=== PATIENT | male | born 1975 | race Caucasian/White ===

== ENCOUNTER → 2018-05-04 07:34 | Outpatient (CLI) | payer OTHER, SELFPAY ==
--- NOTE | 2018-05-04 11:45 | PFT ---
INTRODUCTION: The patient is a 42-year-old male that presents for pulmonary function testing secondary to a diagnosis of cough. Respiratory therapy reports good patient effort. Bronchodilators were used during testing. INTERPRETATION: Forced expiration spirometry mistreats no evidence of a large airways obstructive ventilatory defect. There was no significant response to aerosolized bronchodilators. Spirograms are of poor quality and terminate prior to 6 seconds, likely underestimating FVC. Body plethysmography was performed which revealed an elevated TLC and RV of unclear significance. Diffusing capacity by single breath CO is within normal limits. IMPRESSION: Suboptimal pulmonary function testing. The patients short exhalation time, likely underestimated FVC. The increase in TLC and RV is of unclear significance.
== END ==
LOC: PSN 07:35
PROVIDERS: Family Provider Family Medicine; PCP Family Medicine; Referring Provider Internal Medicine Critical Care Medicine; Visit Provider Internal Medicine Critical Care Medicine
DX: R05 Cough (principal); Z86.19 Personal history of other infectious and parasitic diseases
CPT/HCPCS: 94060; 94726; 94729

== ENCOUNTER → 2018-05-18 15:24 | Outpatient (CLI) | payer OTHER, SELFPAY ==
--- NOTE | 2018-05-18 15:27 | CT_ITS ---
STUDY: CT CHEST WITHOUT CONTRAST REASON FOR EXAM: Male, 42 years old. Cough. History of pulmonary aspergillosis and right upper lobectomy. RADIATION DOSAGE (If Supplied By Facility): CTDIvol = ( 6.76 ) mGy, DLP = ( 259.12 ) mGycm TECHNIQUE: Transaxial imaging was performed without the administration of intravenous contrast material. Individualized dose optimization techniques were used for this CT. COMPARISON: None. FINDINGS: There is mild loss of volume with right upper lobe. There are small bullous changes in the upper lobes bilaterally. There is moderate stranding in the right upper lobe. There is mild stranding in the right lower lobe as well. No focal infiltrate is seen. There is mild central bronchiectasis. There is no demonstrated pleural abnormality. Normal heart and pericardium. Normal mediastinum. Normal hilar regions. Normal unenhanced pulmonary arteries. Normal aorta arch and descending thoracic aorta. There is no demonstrated acute osseous changes. The visualized portions of the upper abdomen demonstrate nonobstructing stone in the right kidney measuring about 6 mm. There is no evidence of hydronephrosis. CT/Chest without Contrast IMPRESSION: 1. Mild loss of volume of the right upper lobe. 2. Mild stranding in the right upper lobe probably due to scarring. 3. Mild bullous and cystic changes with mild bronchiectatic changes. 4. No focal infiltrate is seen. Electronically Signed: Gigi Schultz MD at 15:32 EST Tel , Service support ,
== END ==
LOC: CT 15:26
PROVIDERS: Family Provider Family Medicine; PCP Family Medicine; Referring Provider Internal Medicine Critical Care Medicine; Visit Provider Internal Medicine Critical Care Medicine
DX: R05 Cough (principal); Z86.19 Personal history of other infectious and parasitic diseases
CPT/HCPCS: 71250

== ENCOUNTER → 2018-06-04 08:27 | Outpatient (CLI) | payer OTHER, SELFPAY ==
[2018-06-04 10:02] LABS: Absolute Neutrophil Count 3.3 X10^3/uL (2.0-7.7); Basophil# 0.02 X10^3/uL; Basophil% 0.3 % (0-1); Eosinophils% 5.9 % (0-5); Hematocrit 43.6 % (40-54); Hemoglobin 14.6 g/dl (13.0-16.5); Lymphocyte % 35.3 % (19-41); Mean Corp Hgb Conc 33.5 g/gl (32-36); Mean Corpuscular Hgb 30.2 pg (27.0-32.0); Mean Corpuscular Volume 90.1 fL (80-94); Mean Platelet Vol. 10.8 fl (6.2-12.0); Monocyte# 0.66 X10^3/uL; Monocyte% 9.7 % (0-10); Neutrophil % 48.7 % (47-70); Platelet Count 275 K/mm3 (150-450); RBC Distribution Width CV 13.2 % (11.6-14.6); RBC Distribution Width SD 43.1 fl (35.1-43.9); Red Blood Count 4.84 M/mm3 (4.6-6.2); White Blood Count 6.8 K/mm3 (4.4-11.0)
[2018-06-04 10:03] LABS: POSITIVE COUNT NO; POSITIVE DIFFERENTIAL NO; POSITIVE MORPHOLOGY NO
[2018-06-04 10:24] LABS: BUN 20 mg/dL (7-18); Creatinine, Serum 0.92 mg/dL (0.70-1.30); Glucose 64 mg/dL (74-106)
[2018-06-04 10:25] LABS: ALB/GLOB Ratio 1.1 RATIO (0.9-2.4); AST(SGOT) 17 U/L (15-37); Alanine Aminotransfer ALT/SGPT 29 U/L (16-61); Alkaline Phosphatase 78 U/L (45-117); Anion Gap 6 (5-15); BUN/Creat Ratio 21.7 RATIO (10-20); Calcium,Total 8.8 mg/dL (8.5-10.1); Chloride 104 mmol/L (98-107); EST Glomerular Filtration Rate 95 mL/min (>60); Est Glom Filt Rate - Afr Amer 115 mL/min (>60); Globulin 3.7 g/dL (2.2-4.2); Potassium 3.9 mmol/L (3.5-5.1); Protein, Total 7.7 g/dL (6.4-8.2); Sodium Level 141 mmol/L (136-145)
--- OUTSIDE RECORDS SUMMARY | 2018-08-06 15:46 | XMS RPT_ITS ---
:1975 Author Organization [place] Support Name Relationship Address Phone PRISCILA AMAYA Unavailable [address] + [place] [address] E J SAMUEL Unavailable [address] + [place] [address] STRAITS, CEDRICK Unavailable Unavailable + PRISCILA AMAYA Unavailable [address] + [place] [address] E J SAMUEL Unavailable [address] + [place] [address] STRAITS, CEDRICK Unavailable . + [place] [address] VILMA AMAYAE Unavailable [address] + [place] [address] E J SAMUEL Unavailable [address] + [place] [address] STRAITS, CEDRICK Unavailable Unavailable + VILMA AMAYAE Unavailable [address] + [place] [address] E J SAMUEL Unavailable [address] + [place] [address] STRAITS, CEDRICK Unavailable Unavailable + VILMA AMAYAE Unavailable [address] + [place] [address] E J SAMUEL Unavailable [address] + [place] [address] STRAITS, CEDRICK Unavailable Unavailable + AMAYA, PRISCILA Unavailable [address] + [place] [address] E Earle BAKER Unavailable [address] + [place] [address] CEDRICK PAZ Unavailable Unavailable + AMAYA, PRISCILA Unavailable [address] + [place] [address] E Earle BATISTASAMUEL Unavailable [address] +. [place], [place] U NOT GIVEN Unavailable Unavailable Unavailable AMAYA, PRISCILA Unavailable [address] + [place], [place] [id number] AMAYA, PRISCILA Unavailable [address] Unavailable [place], [place] [id number] NOT GIVEN Unavailable Unavailable Unavailable AMAYA, PRISCILA Unavailable [address] + [place] [address] AMAYA, PRISCILA Unavailable [address] [place] [address] NOT GIVEN Unavailable Unavailable Unavailable AMAYA, PRISCILA Unavailable [address] + [place] [address] AMAYA, PRISCILA Unavailable [address] [place] [address] NOT GIVEN Unavailable Unavailable Unavailable AMAYA, PRISCILA Unavailable [address] + [place] [address] AMAYA, PRISCILA Unavailable [address] [place] [address] NOT GIVEN Unavailable Unavailable Unavailable AMAYA, PRISCILA Unavailable [address] + [place] [address] AMAYA, PRISCILA Unavailable [address] [place] [address] NOT GIVEN Unavailable Unavailable Unavailable AMAYA, PRISCILA Unavailable [address] + [place] [address] AMAYA, PRISCILA Unavailable [address] + [place] [address] Care Team Providers Name Role Phone CLARENCE LARKIN, TALA Verma Attending Unavailable RIDDHI GARDNER Primary Care Unavailable CHINTAN POWERS, JOHN PAUL Sparks Consulting Unavailable KAUSHAL AGUAYO Admitting Unavailable OLY, RIDDHI Primary Care Unavailable RICK POWERS, SANDY Ugalde Consulting Unavailable CHINTAN POWERS, JOHN PAUL Sparks Attending Unavailable RUFINA POWERS, DRISS Consulting Unavailable ROSA POWERS, CIRO Aguilar Consulting Unavailable PAM POWERS, JESSICA Carlson Consulting Unavailable TYRELL POWERS, CHRISTINA Rasmussen Consulting Unavailable CHINTAN POWERS, JOHN PAUL [employer] Consulting Unavailable ONDINA PARSONS MD, MERY DUNCAN Consulting Unavailable JEMAL POWERS, NOLVIA Consulting Unavailable RIDDHI GARDNER Consulting Unavailable MIGEL POWERS, RAMONA Consulting Unavailable DIPIKA CHRISTENSEN, DR. CHARLIE Fernandez Consulting Unavailable RIDDHI GARDNER MD Admitting Unavailable RIDDHI GARDNER MD Attending Unavailable RIDDHI GARDNER MD Primary Care Unavailable KARINA ROMO MD Admitting Unavailable KARINA ROMO MD Attending Unavailable KARINA ROMO MD Primary Care Unavailable RIDDHI GARDNER MD Consulting Unavailable PROVIDER, UNKNOWN Consulting Unavailable PROVIDER, UNKNOWN Consulting Unavailable NO, DOCTOR ON Consulting Unavailable COLLETTE WINKLER RN Primary Care Unavailable COLLETTE WINKLER RN Attending Unavailable COLLETTE WINKLER RN Admitting Unavailable BRITTANEY, DR DANIEL Harden Admitting Unavailable BRITTANEY, DR DANIEL Harden Attending Unavailable BRITTANEY, DR DANIEL Harden Primary Care Unavailable NO, DOCTOR ON Consulting Unavailable NO, DOCTOR ON Referring Unavailable KARINA ROMO MD Consulting Unavailable COLLETTE WINKLER RN Admitting Unavailable COLLETTE WINKLER RN Attending Unavailable COLLETTE WINKLER RN Primary Care Unavailable JESSICA OROZCO Referring Unavailable COMPANY, CARE Consulting Unavailable PROVIDER, UNKNOWN Consulting Unavailable DR HUMPHREY MUNOZ Admitting Unavailable TAMMY, DR HUMPHREY Mcfalrand Attending Unavailable DR HUMPHREY MUNOZ Primary Care Unavailable JOAQUIM REIS CNP Consulting Unavailable JOAQUIM REIS CNP Referring Unavailable PROVIDER, UNKNOWN Consulting Unavailable PROVIDER, UNKNOWN Consulting Unavailable ROCK WILKERSON Attending Unavailable Jimbo Biggs D.O. Attending Unavailable Joaquim Reis Referring Unavailable Jimbo Biggs D.O. Attending Unavailable Jimbo Biggs D.O. Referring Unavailable Riddhi Gardner Primary Care Unavailable Jimbo Biggs D.O. Attending Unavailable Jimbo Biggs D.O. Referring Unavailable Riddhi Gardner Primary Care Unavailable Jimbo Biggs D.O. Attending Unavailable Jimbo Biggs D.O. Referring Unavailable Karina Romo Attending Unavailable Karina Romo Referring Unavailable Riddhi Gardner Primary Care Unavailable Jimbo Biggs D.O. Attending Unavailable Joaquim Reis Referring Unavailable Jimbo Biggs D.O. Attending Unavailable Jimbo Biggs D.O. Referring Unavailable Primay Care Physicia, No Primary Care Unavailable PROBLEMS PROBLEMS DATE TYPE CONDITION / CODE ATTENDING STATUS SOURCE 06/04/2018 Unknown M05.79 - Karina Romo Active [facility] arthritis with Hospital rheumatoid factor Repository of multiple sites without organ or systems involvement / M05.79(ICD-10) 06/04/2018 Unknown Z79.899 - Other Karina Romo Active [facility] [employer] [facility] (current[facility] drug Hospital therapy / Repository Z79.899(ICD-10) 05/17/2018 Unknown R05 - Cough / Jimbo Biggs Active [facility] R05(ICD-10) [facility] Repository 04/27/2018 Unknown Z86.19 - Personal Jimbo Biggs Active [facility] history of other [facility] infectious and Hospital parasitic Repository diseases / Z86.19(ICD-10) 01/31/2018 Principle Hesitancy of RIDDHI GARDNER Active [facility] micturition / [facility] R3911(ICD-10) Hospital Repository 08/04/2017 Admitting Rheumatoid KONSTANTACOS, Active [facility] arthritis with COLLETTE CHRISTIANSEN [facility] rheumatoid factor Hospital of multiple sites Repository without organ or systems involvement / M0579(ICD-10) 08/04/2017 Principle Rheumatoid KONSTANTACOS, Active [facility] Diagnosis arthritis with COLLETTE CHRISTIANSEN [facility] rheumatoid factor Hospital of multiple sites Repository without organ or systems involvement / M0579(ICD-10) 08/04/2017 Secondary Other fpc KONSTANTACOS, Active [facility] Diagnosis (current) drug COLLETTE CHRISTIANSEN [facility] therapy / Hospital O06342(ICD-10) Repository 07/17/2017 Active Unknown / ROCK, Active [facility] UNK(Unknown) [facility] Repository PROCEDURES PROCEDURES No Procedure Records FoundRESULTS RESULTS PULMONARY VISIT REPORT Observed: 06/07/2018 Status: F Source: [place] 1:[address] [facility] REPOSITORY [facility] [place] [address] [place] [address] OFFICE VISIT Date of Service: 06/07/18 MR#: [id number] Acct: [id number] Name: CHARLIE AMAYA Jr. Rep #: [id number] : 1975 Provider: Jimbo Biggs D.O. Age/Sex: 42/M Location: [facility] Status: Signed Assessment AND Plan 1. History of pulmonary aspergillosis Z86.19 Plan The patient's recent CT chest revealed no evidence of active disease. The patient did follow up with infectious diseases and was cleared for the initiation of a biologic from a rheumatoid arthritis perspective. 2. Rheumatoid arthritis M06.9 Plan Continue current medical management and follow-up with rheumatology as scheduled. 3. Chronic cough R05 Suspect possible cough variant asthma. Plan The patient does report the presence of a chronic, intermittently productive cough. He is not currently on an PIYUSH inhibitor. He does not endorse the presence of postnasal drip. Flonase has not led to any symptom improvement. He does report prior symptom relief during his hospitalization with nebulized bronchodilators. The differential diagnosis at this time would include that of cough variant asthma or possibly GERD related cough. The patient's recent pulmonary function studies were suboptimal, but did not demonstrate evidence of a fixed large airways obstruction on spirometry. At the current time, I am going to provide the patient with nebulizer supplies and prescriptions for albuterol and budesonide. The patient will begin to utilize budesonide twice daily along with as needed albuterol in his home environment. My hope is that this will provide some symptom relief to his current cough complaints. If the patient's cough does not respond favorably to the use of these medications, consideration will be given to the initiation of PPI therapy at his follow-up office visit. Orders Orders: Plan Detail Other Medications New: Follow Up 6 Weeks (CSM) HPI HPI Comments Details: The patient is a 42-year-old male who presents to the clinic today for a routine scheduled follow-up office visit. The patient has a history of seropositive, anti-CCP positive rheumatoid arthritis. He is currently being followed by Dr. Romo at the arthritis clinic. The patient was evaluated previously due to a history of a right upper lobe cavitary lesion on CT scan. He was then admitted to [facility] in May 2017, where he underwent a video-assisted thorascopic surgery and subsequent right upper lobectomy. Surgical cultures showed rare Aspergillus species. The patient was treated initially with IV voriconazole and then discharged home on a 6-week oral course. The patient was seen by me in the pulmonary medicine clinic, as his teacher's aide was considering the initiation of immunotherapy for his rheumatoid arthritis, but wanted him cleared first before starting said medications. The patient is on chronic prednisone 5-10 mg daily and has been for approximately 3 years. The patient has a smoking history that includes 1 pack/day x 28 years. He quit smoking completely in May 2017. The patient is currently employed working as an over the road trucker hand. He does report that at the time of his initial diagnosis of pulmonary aspergillosis, that he was being treated with Enbrel. A repeat CT chest without contrast completed in May 2018 revealed volume loss in the right upper lobe without infiltrate. Pulmonary function studies were suboptimal. However, spirometry did not reveal evidence of obstructive lung disease. The patient then followed up with infectious diseases in May 2018. He was subsequently cleared for treatment for his rheumatoid arthritis. Today, the patient continues to report the presence of a chronic cough. The patient's cough is intermittently productive of sputum. The patient denies the presence of rhinorrhea, nasal congestion or postnasal drip. He has been utilizing Flonase now for approximately 6 months, without resolution of his cough. He denies the presence of chest tightness or wheezing. The patient tried albuterol in metered-dose form previously, but stated that he was unable to get the medication in to his lungs due to his frequent paroxysms of coughing. He does report that when he was hospitalized previously, that he did receive nebulized bronchodilators, which did provide symptom relief. The patient does currently keep a dog, cat and snake as pets in his home environment. He also reports the presence of frequent heartburn symptoms, but is not currently on therapy. He denies the presence of fevers, chills or night sweats. Intake Vital Signs06/07/18 Height 5 ft 9 in 06/07/18 Weight: 136 lb Intake Visit Reasons: 1 M FU Allergies methotrexate Adverse Reaction (Intermediate, Verified 04/27/18 11:00) Hives AND Rash Medications meloxicam 15 mg tablet 15 mg PO DAILY PRN 02/26/18 [History Confirmed 04/27/18] txoiumxz-wmjc-bnlbd acid 400 mcg-lycopene 300 mcg-ginkgo 120 mg tablet 1 tab PO QDAY tab 02/26/18 [History Confirmed 04/27/18] prednisone 5 mg tablet 5 mg PO DAILY 02/26/18 [History Confirmed 04/27/18] cetirizine 10 mg capsule 10 mg PO DAILY 04/27/18 [History Confirmed 04/27/18] ferrous gluconate 240 mg (27 mg iron) tablet 240 mg PO DAILY tab 04/27/18 [History Confirmed 04/27/18] fluticasone 50 mcg/actuation nasal spray,suspension 1 spray INTRANASAL DAILY 04/27/18 [History Confirmed 04/27/18] potassium 99 mg tablet 99 mg PO DAILY 04/27/18 [History Confirmed 04/27/18] benzonatate 100 mg capsule 100 mg PO TID PRN #60 cap 04/30/18 [Rx] albuterol sulfate 2.5 mg/3 mL (0.083 %) solution for nebulization 2.5 mg INHALATION Q4H PRN #180 ml 06/07/18 [Rx Confirmed 06/07/18] budesonide 0.5 mg/2 mL suspension for nebulization 2 ml INHALATION BID #120 ml 06/07/18 [Rx Confirmed 06/07/18] PFSH Medical History Rheumatoid arthritis (Chronic) History of pulmonary aspergillosis (Chronic) Pneumonia (Acute) Arthralgia (Chronic) Rheumatoid arthritis (Chronic) Surgical History History of lung surgery (Resolved) Family History Brother Diabetes Father Hypertension Social History household members: spouse housing: other details: mobile home current occupational status: employed current occupation: [employer] pets and animals: Yes pets and animals: dog(s), cat(s), fish, turtle(s), snake(s) Smoking Status: Former smoker quit date: 05/15/16 pack-years: 14 second hand exposure: No alcohol intake: current alcohol intake frequency: holidays/special occasions only substance use type: does not use Review of Systems Const CONSTITUTIONAL: Negative anorexia, body ache, chills, daytime sleepiness, fever(s), night sweats, oral thrush, stops breathing during sleep, weight loss, sleeping in chair, fatigue, weight loss, weight gain, frequent colds, seasonal allergies, other, headache(s) or orthopnea EETM Ear Nose Throat Mouth: Positive hearing normal; negative hard of hearing, hoarseness, dry mouth in morning, change in vision, itchy eyes, eye pain, swallowing Difficulty, ear pain, nose bleed, headache(s), mouth pain, nasal congestion, nasal discharge, post nasal drip, sinus pain, sinus pressure, sore throat or other Cardio Cardiovascular: Negative chest pain, chest pain at rest, chest pain with activity, irregular heart rhythm, edema, shortness of breath when lying down, palpitations, murmur or other Resp Respiratory: Positive as per HPI, shortness of breath shortness of breath: Positive with activity and cough cough: Positive productive color: Positive green and non-productive; negative pain with cough, wheezing, chest congestion, chest tightness, pain on inspiration, inhalers, increase use of rescue inhalers, snoring, apnea or other Gastro Gastrointestional: Negative bloody stools, change in appetite, difficulty swallowing, reflux, hematemesis, melena stool, loose stool, constipation or other Genitourinary: Negative blood in urine, nocturia, pain with urination or other Musc Musculoskeletal: Negative body pain, back pain, neck pain or other Skin/Breast Skin/Breast: Negative dry skin, itching, rash, unusual bruising, breast lump or other Neuro Neurological: Negative restless legs, confusion, weakness or other Psych Psychocological: Negative abnormal sleep pattern, anxiety, thoughts of hurting self/others, hopelessness or other Lymph Lymphatic: Negative easy bleeding, easy bruising, swollen lymph nodes or other Exam Const Constitutional: Positive conversant, cooperative, in no acute respiratory distress, well developed, thin and cachectic Head Head: Positive normocephalic and atraumatic; negative cyanosis of lips/distal nose Eyes Eye: Positive clear conjunctiva; negative nystagmus or scleral abnormality Ears Ear: Positive hearing normal and external ears normal; negative hard of hearing Nose Nose: Positive external nose normal; negative epistaxis Mouth Mouth: Positive oral mucosae normal, posterior oropharynx is adequate and poor dentition; negative no lesions or post nasal drip Mallampati Score: II: Mallampati Score Neck Neck: Positive normal visual inspection and trachea midline; negative lymphadenopathy Chest Wall Chest: Positive symmetric chest movement Normal AP diameter. Resp lung sounds: Positive good air exchange; negative wheezes, rhonchi or rales Frequent paroxysms of coughing Cardio Cardiac: Positive regular rate, regular rhythm, S1 normal and S2 normal; negative rub, gallop or murmur GI GI: Positive normal bowel sounds Soft without distention Genitourinary: Positive deferred Musc Musculoskeletal: Positive steady gait Skin Pulmonary Skin Exam: Positive intact; negative lesion, ulcers, dermal atrophy or rash Pulses Pulse: Yes Pedal pulses present: Extremities Extremities: No clubbing, No cyanosis, No edema Neuro Neurologic: Yes conversant, Yes no focal neuro deficits, Yes cooperative Lymph Lymphatic: No lymphadenopathy Psych Appearance: Positive grossly normal Mental Status: Positive mental status grossly normal Mood: Positive congruent mood Affect: Positive normal affect Coding Level of Care Code Off vis,est,level 4 Diagnoses History of pulmonary aspergillosis Z86.19 Rheumatoid arthritis M06.9 Chronic cough R05 06/07/18 1349 <Electronically signed by Jimbo Biggs DO> Date Jimbo Biggs DO Cosigner Signature: Date (if applicable) CC: SHARON Reis CBC W/DIFF, AUTOMATED Collected: 06/04/2018 Status: F Source: [place] 8:[address] [facility] REPOSITORY TYPE CODE TESTS RESULT OUT OF RANGE REFERENCE UNITS LAB L100.1000 4.4-11.0 K/mm3 Normal WBC 6.8 LAB L100.1200 4.6-6.2 M/mm3 Normal RBC 4.84 LAB L100.1300 13.0-16.5 g/dl Normal HGB 14.6 LAB L100.1400 40-54 % Normal HCT 43.6 LAB L100.1500 80-94 fL Normal MCV 90.1 LAB L100.1600 27.0-32.0 pg Normal MCH 30.2 LAB L100.1700 32-36 g/gl Normal MCHC 33.5 LAB L100.1810 11.6-14.6 % Normal RDW CV 13.2 LAB L100.1820 35.1-43.9 fl Normal RDW SD 43.1 LAB L100.1900 150-450 K/mm3 Normal PLT 275 LAB L100.2000 6.2-12.0 fl Normal MPV 10.8 LAB L100.2100 47-70 % Normal NEUT% 48.7 LAB L100.2200 19-41 % Normal LY% 35.3 LAB L100.2300 0-10 % Normal MONO% 9.7 LAB L100.2400 0-5 % High EO% 5.9 LAB L100.2500 0-1 % Normal BASO% 0.3 LAB L100.2550 0.0-0.9 % Normal IM GRAN % 0.100 Result Comment: IG% - Immature Granulocytes (promyelocytes, myelocytes and metamyelocytes) > 1% indicates that a LEFT SHIFT is Present. LAB L100.2620 2.0-7.7 X10 3/uL Normal Absolute Neut 3.3 LAB L100.2720 0.83-4.51 X10 3/ul Normal Absolute Lymph 2.40 Performed By: #### L100.0100 #### [facility] [address] [facility] [place], [address] COMPREHENSIVE METABOLIC Collected: 06/04/2018 Status: F Source: [facility] 8:[address] [facility] REPOSITORY TYPE CODE TESTS RESULT OUT OF RANGE REFERENCE UNITS LAB L501.0100 74-106 mg/dL Low GLU 64 Result Comment: Please note revised GLUCOSE reference range effective 2017. LAB L501.1000 7-18 mg/dL High BUN 20 LAB L501.1100 0.70-1.30 mg/dL Normal CREAT,SERUM 0.92 Result Comment: The validity of the calculated GFR AND GFRAA in patients over 70 years has not been determined. Clinical correlation is essential. LAB L501.1110 >60 mL/min Normal EST GFR 95 Result Comment: Non- GFR Calc LAB L501.1115 >60 mL/min Normal EST GFR - AA 115 Result Comment: GFR Calc LAB L501.1300 10-20 RATIO High BUN/CRE 21.7 LAB L501.1500 6.4-8.2 g/dL T Normal PROT 7.7 LAB L501.1800 3.2-5.0 g/dL Normal ALB 4.0 LAB L501.1950 2.2-4.2 g/dL Normal GLOB 3.7 LAB L501.2000 0.9-2.4 RATIO Normal A/G 1.1 LAB L501.2200 8.5-10.1 mg/dL CA Normal 8.8 LAB L501.4100 15-37 U/L Normal AST 17 LAB L501.4305 45-117 U/L Normal ALK P 78 LAB L501.4405 16-61 U/L Normal ALT 29 LAB L501.4600 0.20-1.00 mg/dL T Normal BILI 0.30 LAB L501.5300 136-145 mmol/L NA Normal 141 LAB L501.5600 3.5-5.1 mmol/L K Normal 3.9 LAB L501.5900 98-107 mmol/L CL Normal 104 LAB L501.6100 21.0-32.0 mmol/L Normal CO2 31.0 LAB L501.6200 5-15 Normal GAP 6 Performed By: #### L500.4050 #### [facility] [address] [place], [place], [address] CHEST WITHOUT Observed: 05/18/2018 Status: F Source: [place] CONTRAST 3:[address] [facility] REPOSITORY [facility] Imaging Services [address] [place] [address] Chest without Contrast MR#: [id number] Acct: [id number] Name: CHARLIE AMAYA Jr. Rep #: [id number] : 1975 M 42 From: Gigi Schultz MD PCP: Riddhi Gardner MD Status: REG CLI Study: Chest without Contrast Date of Exam: 05/18/18 Exam# [id number] Ordering Dr: Jimbo Biggs DO STUDY: CT CHEST WITHOUT CONTRAST REASON FOR EXAM: Male, 42 years old. Cough. History of pulmonary aspergillosis and right upper lobectomy. RADIATION DOSAGE (If Supplied By Facility): CTDIvol = ( 6.76 ) mGy, DLP = ( 259.12 ) mGycm TECHNIQUE: Transaxial imaging was performed without the administration of intravenous contrast material. Individualized dose optimization techniques were used for this CT. COMPARISON: None. FINDINGS: There is mild loss of volume with right upper lobe. There are small bullous changes in the upper lobes bilaterally. There is moderate stranding in the right upper lobe. There is mild stranding in the right lower lobe as well. No focal infiltrate is seen. There is mild central bronchiectasis. There is no demonstrated pleural abnormality. Normal heart and pericardium. Normal mediastinum. Normal hilar regions. Normal unenhanced pulmonary arteries. Normal aorta arch and descending thoracic aorta. There is no demonstrated acute osseous changes. The visualized portions of the upper abdomen demonstrate nonobstructing stone in the right kidney measuring about 6 mm. There is no evidence of hydronephrosis. CT/Chest without Contrast IMPRESSION: 1. Mild loss of volume of the right upper lobe. 2. Mild stranding in the right upper lobe probably due to scarring. 3. Mild bullous and cystic changes with mild bronchiectatic changes. 4. No focal infiltrate is seen. Electronically Signed: Gigi Schultz MD at 15:32 EST Tel , Service support , CC: Jimbo Biggs D.O.; Riddhi Gardner MD Poultry Raiser: Signed PULMONARY FUNCTION Observed: 05/04/2018 Status: F Source: [place] TEST 11:[address] [facility] REPOSITORY [facility] Pulmonary Services/Neurology [address] [place] [address] [place] [address] MR#: [id number] Acct: [id number] Name: CHARLIE AMAYA Jr. Rep #: [id number] : 1975 42 From: Jimbo Biggs DO Referring Dr: Jimbo Biggs D.O. Status: REG CLI Ordering Dr: Date: Location: [facility] Sex: M C INTRODUCTION: The patient is a 42-year-old male that presents for pulmonary function testing secondary to a diagnosis of cough. Respiratory therapy reports good patient effort. Bronchodilators were used during testing. INTERPRETATION: Forced expiration spirometry mistreats no evidence of a large airways obstructive ventilatory defect. There was no significant response to aerosolized bronchodilators. Spirograms are of poor quality and terminate prior to 6 seconds, likely underestimating FVC. Body plethysmography was performed which revealed an elevated TLC and RV of unclear significance. Diffusing capacity by single breath CO is within normal limits. IMPRESSION: Suboptimal pulmonary function testing. The patients short exhalation time, likely underestimated FVC. The increase in TLC and RV is of unclear significance. 05/04/18 1148 <Electronically signed by Jimbo Biggs DO> Date Jimbo Biggs DO CC: Jimbo Biggs D.O.; Riddhi Gardner MD Date Dictated: 05/04/181144 Date Transcribed: 05/04/181144 Poultry Raiser: [email or web address] Signed PULMONARY VISIT REPORT Observed: 04/27/2018 Status: F Source: [place] 11:38 AM [facility] Pulmonary Medicine of [address] [place] [address] OFFICE VISIT Date of Service: 04/27/18 MR#: [id number] Acct: [id number] Name: CHARLIE AMAYA JR Rep #: [id number] : 1975 Provider: Jimbo Biggs D.O. Age/Sex: 42/M Location: [facility] Status: Signed Assessment AND Plan 1. Chronic cough R05 Plan At this time, the patient endorses the presence of a chronic cough, which was initially present upon his diagnosis of pulmonary aspergillosis in May 2017. He did complete a 6-week course of voriconazole, but ever followed up with infectious diseases. At this time, I am going to proceeding with obtaining baseline pulmonary function testing. In addition, the patient will obtain a repeat CT of his chest. Orders Orders: 2. History of pulmonary aspergillosis Z86.19 Plan As noted above, the patient reports being seen by infectious diseases while he was admitted to the hospital in May/June 2017. He completed a 6-week course of voriconazole for pulmonary aspergillosis. No follow-up was ever completed. I have asked that the patient be evaluated by Dr. Easley of infectious diseases prior to consideration for restarting any form of immunotherapy for his underlying rheumatoid arthritis. Orders Orders: Referrals: 3. Rheumatoid arthritis M06.9 Plan Patient is chronically on prednisone 5-10 mg daily. However, his disease is not currently controlled. Recommend repeating chest imaging and obtaining pulmonary function testing prior to consideration for restarting immunotherapy. In addition, would recommend evaluation by infectious diseases as well. Plan Detail Follow Up 4-6 weeks w/ DMB HPI HPI Comments Details: The patient is a 42-year-old male who presents to the clinic today in referral for evaluation of a cough. Of note, this patient was initially scheduled to see me 2 months ago in mid February. However, he failed to show up for his appointment. The patient has a history of seropositive, anti-CCP positive rheumatoid arthritis. He is currently being followed by Dr. Romo at the arthritis clinic. The patient was evaluated previously due to a history of a right upper lobe cavitary lesion on CT scan. He was then admitted to [facility] in May 2017, where he underwent a video-assisted thorascopic surgery and subsequent right upper lobectomy. Surgical cultures showed rare Aspergillus species. The patient was treated initially with IV voriconazole and then discharged home on a 6-week oral course. He failed to follow-up with infectious diseases. Today, the patient reports that he is experiencing a persistent nonproductive cough, which was present upon his initial diagnosis of pulmonary aspergillosis. His teacher's aide is considering initiation of immunotherapy for his rheumatoid arthritis, but would like him to be cleared first prior to restarting said medications. The patient does take prednisone 5-10 mg daily and has been doing so for approximately 3 years. He denies the presence of fevers or chills. He has a good appetite and reports that he is currently gaining weight. The patient has a smoking history that includes 1 pack/day x 28 years. He quit smoking completely in May 2017. The patient is currently employed working as an over the road trucker hand. He does report that at the time of his initial diagnosis of pulmonary aspergillosis, that he was being treated with Enbrel. He denies any hemoptysis or night sweats. The patient has not had any repeat chest imaging studies completed. Intake Vital Signs04/27/18 Height 5 ft 9 in 04/27/18 Weight: 136 lb Intake Visit Reasons: Cough, History of lobectomy Doorshaker Required: No Accompanied by: Is patient in pain?: Yes Allergies methotrexate Adverse Reaction (Intermediate, Verified 04/27/18 11:00) Hives AND Rash Medications meloxicam 15 mg tablet 15 mg PO DAILY PRN 02/26/18 [History Confirmed 04/27/18] xyopfnoc-rgvs-jvpzs acid 400 mcg-lycopene 300 mcg-ginkgo 120 mg tablet 1 tab PO QDAY tab 02/26/18 [History Confirmed 04/27/18] prednisone 5 mg tablet 5 mg PO DAILY 02/26/18 [History Confirmed 04/27/18] cetirizine 10 mg capsule 10 mg PO DAILY 04/27/18 [History Confirmed 04/27/18] ferrous gluconate 240 mg (27 mg iron) tablet 240 mg PO DAILY tab 04/27/18 [History Confirmed 04/27/18] fluticasone 50 mcg/actuation nasal spray,suspension 1 spray INTRANASAL DAILY 04/27/18 [History Confirmed 04/27/18] potassium 99 mg tablet 99 mg PO DAILY 04/27/18 [History Confirmed 04/27/18] PFSH Medical History Pneumonia (Acute) Rheumatoid arthritis (Chronic) Arthralgia (Chronic) Surgical History History of lung surgery (Resolved) Family History Brother Diabetes Father Hypertension Social History household members: spouse housing: other details: mobile home current occupational status: employed current occupation: [employer] pets and animals: Yes pets and animals: dog(s), cat(s), fish, turtle(s), snake(s) Smoking Status: Former smoker quit date: 05/15/16 pack-years: 14 second hand exposure: No alcohol intake: current alcohol intake frequency: holidays/special occasions only substance use type: does not use Review of Systems Const CONSTITUTIONAL: Positive fatigue; negative anorexia, body ache, chills, daytime sleepiness, fever(s), night sweats, oral thrush, stops breathing during sleep, weight loss, sleeping in chair, weight loss, weight gain, frequent colds, seasonal allergies, other, headache(s) or orthopnea EETM Ear Nose Throat Mouth: Positive hearing normal and sore throat; negative hard of hearing, hoarseness, dry mouth in morning, change in vision, itchy eyes, eye pain, swallowing Difficulty, ear pain, nose bleed, headache(s), mouth pain, nasal congestion, nasal discharge, post nasal drip, sinus pain, sinus pressure or other Cardio Cardiovascular: Negative chest pain, chest pain at rest, chest pain with activity, irregular heart rhythm, edema, shortness of breath when lying down, palpitations, murmur or other Resp Respiratory: Positive as per HPI, shortness of breath and cough cough: Positive non-productive; negative pain with cough, wheezing, chest congestion, chest tightness, pain on inspiration, inhalers, increase use of rescue inhalers, snoring, apnea or other Gastro Gastrointestional: Negative bloody stools, change in appetite, difficulty swallowing, reflux, hematemesis, melena stool, loose stool, constipation or other Genitourinary: Negative blood in urine, nocturia, pain with urination or other Musc Musculoskeletal: Positive body pain; negative back pain, neck pain or other Skin/Breast Skin/Breast: Negative dry skin, itching, rash, unusual bruising, breast lump or other Neuro Neurological: Negative restless legs, confusion, weakness or other Psych Psychocological: Negative abnormal sleep pattern, anxiety, thoughts of hurting self/others, hopelessness or other Lymph Lymphatic: Negative easy bleeding, easy bruising, swollen lymph nodes or other Exam Const Constitutional: Positive conversant, cooperative, in no acute respiratory distress, well developed, thin and cachectic Head Head: Positive normocephalic and atraumatic; negative cyanosis of lips/distal nose Eyes Eye: Positive clear conjunctiva; negative nystagmus or scleral abnormality Ears Ear: Positive hearing normal and external ears normal; negative hard of hearing Nose Nose: Positive external nose normal; negative epistaxis Mouth Mouth: Positive oral mucosae normal, posterior oropharynx is adequate and poor dentition; negative no lesions or post nasal drip Mallampati Score: II: Mallampati Score Neck Neck: Positive normal visual inspection and trachea midline; negative lymphadenopathy Chest Wall Chest: Positive symmetric chest movement Normal AP diameter. Resp lung sounds: Positive good air exchange; negative wheezes, rhonchi or rales Cardio Cardiac: Positive regular rate, regular rhythm, S1 normal and S2 normal; negative rub, gallop or murmur GI GI: Positive normal bowel sounds Soft without distention Genitourinary: Positive deferred Musc Musculoskeletal: Positive steady gait Skin Pulmonary Skin Exam: Positive intact; negative lesion, ulcers, dermal atrophy or rash Pulses Pulse: Yes Pedal pulses present: Extremities Extremities: No clubbing, No cyanosis, No edema Neuro Neurologic: Yes conversant, Yes no focal neuro deficits, Yes cooperative Lymph Lymphatic: No lymphadenopathy Psych Appearance: Positive grossly normal Mental Status: Positive mental status grossly normal Mood: Positive congruent mood Affect: Positive normal affect Coding Level of Care Code Off vis,new,level 4 Diagnoses Chronic cough R05 History of pulmonary aspergillosis Z86.19 Rheumatoid arthritis M06.9 04/27/18 1138 <Electronically signed by Jimbo Biggs DO> Date Jimbo Biggs DO Cosigner Signature: Date (if applicable) CC: SHARON Reis EMERGENCY REPORT Observed: 10/27/2017 Status: F Source: [facility] 7:06 AM [facility] EMERGENCY ROOM REPORT NAME ACCOUNT SEX AGE ADMIT DISCHARGE PT MED. RECORD# NUMBER DATE DATE TYPE FRANKLYN [id number] Karol 41 10/23/17 10/23/17 3 CHARLIE Mclain [id number] ROOM: ER DATE OF : 1975 DICTATING PHYSICIAN: Humphrey Munoz CHIEF COMPLAINT: Shoulder pain. HISTORY OF PRESENT ILLNESS: The patient states that a while back he hurt his right shoulder. He initially thought that this was perhaps a year ago, but his thought it was more like 2 or 3. He did not have any traumatic injury, but developed pain to his right shoulder. He saw [facility] where he had a MRI scan, which apparently showed some rotator cuff injury, as well as a spot somewhere else. He had a cortisone injection and states that it got better, and he has had no further problems until today. He states that yesterday he was cutting some firewood, but does not recall any specific injury or trauma, but he awoke this morning with more pain to his right shoulder that is very similar to what he had previously. It is particularly painful with attempted shoulder abduction. He has no pain down into his arm, hand, or fingers. No numbness or tingling. He does have a history of rheumatoid arthritis and had been on medication for that in the past, but does not take them presently. PAST MEDICAL HISTORY: Significant for rheumatoid arthritis. No other medical problems. MEDICATIONS: He takes no medications presently. SOCIAL HISTORY: He lives at home with family. He does not smoke. He drinks alcohol occasionally. He works as a trucker hand. PHYSICAL EXAMINATION: This is a 41-year-old thin male alert, appropriate, does not appear toxic or in acute distress. He has limited movement of his right arm keeping it against his torso. His skin is pink, warm, and dry. Vital signs: Blood pressure 168/116, pulse 91, respirations 20, temperature 98.8. No tenderness to his neck. He does have tenderness over the lateral aspect of the right shoulder joint just below the acromion diffusely. No anterior joint tenderness. Internal and external rotation are relatively not restricted and not painful, but passive or active shoulder abduction seems to be painful, particularly active and against resistance he really cannot abduct it more than about 30 degrees. There is no warmth or redness. He is not complaining of any other joint pain. EMERGENCY DEPARTMENT COURSE AND TREATMENT: I did not feel x-ray was indicated at this point. The patient states that he called [facility] to make an appointment, but they told him that he would have to be seen here first. Page 1 of 2 CHARLIE AMAYA Emergency Room Report DIAGNOSIS: Right shoulder pain. PLAN/DISPOSITION: I did give him a prescription for 500 mg of naproxen p.o. b.i.d., a slip to be off work for the next several days. He is to follow up with [facility] for further evaluation. Dictated By: Humphrey Munoz MD 10/23/17 09:38 JOB #: [id number] Transcribed By: am 10/23/17 16:24 Electronically signed by: MERCY Munoz M.D. 10/27/17 07:03 Page 2 of 2 FRANKLYN CHARLIE Chemo Emergency Room Report CBC Collected: 08/04/2017 Status: F Source: [facility] 4:20 PM [facility] REPOSITORY TYPE CODE TESTS RESULT OUT OF RANGE REFERENCE UNITS LAB CBC(LOINC) CBC Result Comment: CBC-COMPLETE BLOOD COUNT LAB WBC(LOINC) 4.5 - 10.8 x 10EE3/UL WBC 8.0 LAB RBC(LOINC) 4.50 - x 10EE6/UL 6.00 RBC 4.60 LAB HEMOGLOBIN(LOINC 13.0 - g/dl ) 17.5 Low HEMOGLOBIN 12.7 LAB HEMATOCRIT(LOINC 40.0 - % ) 52.0 Low HEMATOCRIT 38.2 LAB MCV(LOINC) 81 - 98 fl MCV 83 LAB MCH(LOINC) 27 - 33 pg MCH 28 LAB MCHC(LOINC) 32 - 36 X10 3 MCHC 33 LAB RDW/CV(LOINC) 12.0 - % 15.6 RDW/CV High 18.1 LAB PLATELET(LOINC) 150 - 450 x10EE3/UL PLATELET 253 LAB MPV(LOINC) 6.4 - 10.5 fl MPV 9.3 Result Comment: AUTOMATED DIFFERENTIAL LAB NEUT %(LOINC) 46.0 - 76.0 % NEUT % High 77.3 LAB LYMPH %(LOINC) 20.0 - 45.0 % Low LYMPH % 15.2 LAB MONOS %(LOINC) 0.0 - 10.0 % MONOS % 3.7 LAB EO %(LOINC) 0.0 - 7.0 % EO % 3.0 LAB BASO %(LOINC) 0.0 - 2.0 % BASO % 0.8 LAB Lymph #(LOINC) 0.80 - 2.80 x10EE3/U L Lymph # 1.20 LAB Neut #(LOINC) 1.50 - 7.10 x10EE3/U L Neut # 6.20 LAB [place] #(LOINC) 0.20 - 1.00 x10EE3/U L [place] # 0.30 LAB EO #(LOINC) 0.00 - 0.50 x10EE3/U L EO # 0.20 LAB Baso #(LOINC) 0.00 - 0.10 x10EE3/U L Baso # 0.10 LAB MANUAL DIFF(LOINC) MANUAL DIFF N/A LAB MORPHOLOGY(LOINC ) MORPHOLOGY N/A Result Comment: {CD] Performed By: #### [id number] #### [facility],[address] [place] [address] CMP WITH EGFR Collected: 08/04/2017 Status: F Source: [facility] 4:20 PM [facility] REPOSITORY TYPE CODE TESTS RESULT OUT OF RANGE REFERENCE UNITS LAB CMP with eGFR(INC) CMP with eGFR Result Comment: COMPREHENSIVE METABOLIC PANEL LAB SODIUM(LOINC) 136 - 145 mmol/l SODIUM 139 LAB POTASSIUM(LOINC) 3.5 - 5.1 mmol/L POTASSIUM 3.9 LAB CHLORIDE(LOINC) 98 - 107 mmol/L CHLORIDE 102 LAB CO2(LOINC) 21.0 - mmol/L 31.0 CO2 29.7 LAB GLUCOSE(LOINC) 74 - 106 mg/dl GLUCOSE High 108 LAB BUN(LOINC) 6 - 20 mg/dl BUN 8 LAB CREATININE(LOINC) 0.7 - 1.3 mg/dl CREATININE 0.8 LAB AST/SGOT(LOINC) 13 - 39 U/L AST/SGOT 16 LAB ALK PHOS(LOINC) 38 - 126 U/L ALK PHOS 67 LAB CALCIUM(LOINC) 8.6 - mg/dl 10.2 CALCIUM 9.5 LAB TOTAL 6.4 - 8.3 g/dl PROTEIN(LOINC) TOTAL PROTEIN 7.1 LAB ALBUMIN(LOINC) 3.4 - 4.8 g/dL ALBUMIN 3.8 LAB GLOBULIN(LOINC) 1.5 - 3.8 G/DL GLOBULIN 3.3 LAB A/G RATIO(LOINC) 0.9 - 1.6 A/G RATIO 1.2 LAB TOTAL BILI(LOINC) 0.0 - 1.5 mg/dl TOTAL BILI 0.3 LAB B/C RATIO(LOINC) 0 - 30 ratio B/C RATIO 10 LAB ALT/SGPT(LOINC) 10 - 40 U/L ALT/SGPT 11 LAB ANION GAP(LOINC) 10 - 20 mmol/L ANION GAP 11 LAB AGE(LOINC) years AGE 41 LAB eGFR(LOINC) 60 - 999 ML/MINUTE eGFR >60 LAB eGFR(AA)(LOINC) 60 - 999 ML/MINUTE eGFR(AA) >60 Result Comment: ACCORDING TO THE NATIONAL KIDNEY DISEASE EDUCATION PROGRAM(NKDE), A NORMAL eGFR IS A VALUE GREATER THAN OR EQUAL TO 60 ML/MIN/1.73 SQ METERS. CHRONIC KIDNEY DISEASE: <60mL/MIN/1.73 SQ METERS KIDNEY FAILURE: <15mL/MIN/1.73 SQ METERS THIS TEST SHOULD ONLY BE USED FOR PATIENTS 18 YEARS OF AGE AND OLDER. Performed By: #### [id number] #### [facility],[address] [place] [address] PROGRESS Observed: 07/17/2017 Status: COMPLETED Source: [place] 9:51 PM [facility] REPOSITORY HNO ID: [id number] Author: Rock Wilkerson Service: (none) Author Type: Physician Type: Progress Notes Filed: 07/17/2017 10:10 PM Note Text: PULMONARY MEDICINE HISTORY AND PHYSICAL Patient Name: Charlie Amaya JR? ? PRIMARY CARE PHYSICIAN: No Pcp ? REFERRING PHYSICIAN: Self CHIEF COMPLAINT: Here for second opinion for cough and dyspnea after right upper lobectomy HISTORY OF PRESENT ILLNESS: Charlie Amaya JR is a 41 year old male, Ht 176.5 cm (5' 9.5) BMI 18.19 kg/m2, with a history of emphysema and cavitary lung lesion s/o resection This patient is here for first Pulmonary office visit and consultation I reviewed available objective data including imaging as available. Main symptoms include: dyspnea on exertion and cough. Patient was recently diagnosed with right upper lobe cavitary lesion ( mold infection per patient), no other data available, he underwent VATS and right upper lobectomy, he was doing well post op except for non productive cough and dyspnea on exertion, he does have significant nasal clear watery discharge, he does have h/o RA and is on chronic steroids,, he was a heavy smoker but quit last month after the surgery. PAST MEDICAL HISTORY Diagnosis Date - COPD (chronic obstructive pulmonary disease) (HCC) - Rheumatoid arthritis (HCC) PAST SURGICAL HISTORY Procedure Laterality Date - REMOVE LUNG/CHEST WALL Right 06/19/2017 History reviewed. No pertinent family history. No reported family hx of ILD fibrosis, PAH, Tb, lung cancer, A1AT deficiency Social History Substance Use Topics - Smoking status: Former Smoker Types: Cigarettes Quit date: 05/2017 - Smokeless tobacco: Current User Types: Chew Comment: 5 cigarettes a day - Alcohol use No Ambulatory, see vaccine HX, Occupation no h/o dust exposure CURRENT OUTPATIENT MEDICATIONS: amoxicillin-clavulanic acid (AUGMENTIN) 500-125 mg per tablet ENBREL SURECLICK 50 mg/mL (0.98 mL) pnij leflunomide (ARAVA) 20 mg tablet meloxicam (MOBIC) 15 mg tablet Take 15 mg by mouth once daily. oxyCODONE-acetaminophen (PERCOCET) 5-325 mg tablet predniSONE (DELTASONE) 10 mg tablet Take 10 mg by mouth once daily. traMADol (ULTRAM) 50 mg tablet Take 50 mg by mouth every 8 hours as needed. voriconazole (VFEND) 200 mg tablet Take 200 mg by mouth twice daily. omeprazole (PRILOSEC) 20 mg capsule Take 20 mg by mouth once daily. melatonin 10 mg cap Take 2 capsules by mouth daily at bedtime. MULTIVIT-MIN/FOLIC/VIT K/LYCOP (ONE-A-DAY MEN'S MULTIVITAMIN ORAL) Take 1 tablet by mouth once daily. FERROUS SULFATE (IRON ORAL) Take 1 tablet by mouth once daily. omega 1-mya-idq-fish oil (FISH OIL) 900-1,400 mg cpDR Take 1 tablet by mouth once daily. Potassium 99 mg tab Take 1 tablet by mouth once daily. mometasone (NASONEX) 50 mcg/actuation nasal spray Use 2 Sprays in each nostril once daily. tiotropium-olodaterol (STIOLTO RESPIMAT) 2.5-2.5 mcg/actuation mist Inhale 2.5 mcg as instructed once daily. ALLERGIES: ALLERGIES Allergen Reactions - Methotrexate Rash REVIEW OF SYSTEMS Constitutional: Well developed. no acute distress throughout the interview. No dyspnea throughout the interview; not acutely ill. No fevers, chills, night sweats HEENT: Negative for frequent or significant headaches, No changes in hearing or vision, no epistaxis or other nasal problems, normal pharynx. Good voice. Denies lymphadenopathy; denies allergic rhinitis. No tinnitus. RESPIRATORY: intermittent dyspnea on exertion, intermittent wheezing, no hemoptysis, denies excessive phlegm, nonpurulent phlegm, no pleuritic pain TABBY: denies apnea, hypersomnolence, cpap CARDIOVASCULAR: no palpitations, no heart failure, no edema, no chest pain, no stents. No hx CABG GASTROINTESTINAL: Negative for abdominal discomfort, blood in stools or black stools or change in bowel habits, no significant weight loss. No liver failure or active hepatitis. No biliary colic. GENITOURINARY: No history of dysuria, urgency, frequency, or incontinence, mass, hematuria, or pyuria NECKTIE STITCHER: Not reviewed MUSCULOSKELETAL: presence of chronic joint pain related to his RA, No serositis NEUROLOGIC:Negative for focal numbness or weakness, headaches, dizziness or syncope or near-syncope. No recent CVA/TIA. No gait disturbance. No seizures. SKIN: Negative for lesions, rash, and itching. No jaundice PSYCHIATRIC: Negative for sleep disturbance, mood disorder and recent psychosocial stressors. HEMATOLOGIC/LYMPHATIC/IMMUNOLOGIC: no anemia. No hx lymphoma. Denies bleeding diathesis or clotting abnormalities. ENDOCRINE: Negative for cold or heat intolerance, polyuria, polydipsia and goiter. denies thyroid issues. Fatigue present as well as recent weight loss The remainder of the ROS was negative or as per documentation. PHYSICAL EXAMINATION: VITAL SIGNS: BP 168/101 Pulse 77 Resp 16 Ht 5' 9.5 (1.77m) Wt 125 lb (56.7kg) SpO2 97[ra]% BMI 18.20 kg/(m2). General appearance: Alert, in no acute distress, Thin and cachectic , looks chronically ill Skin: Skin color, texture, turgor normal, no suspicious rashes or lesions Head: Normocephalic, no masses, lesions, tenderness or abnormalities Eyes: Anicteric sclera. Pupils are equally round and reactive to light. Extraocular movements are intact. Ears: External ears normal, canals clear Nose/Sinuses: Nares normal, septum midline, mucosa normal, no drainage or sinus tenderness Oropharynx: Lips, mucosa, and tongue normal, teeth and gums normal, oropharynx normal Neck: Supple, no adenopathy; thyroid symmetric, normal size, no bruits Back: Normal exam Lungs: Lungs clear to auscultation. No wheezing, rhonchi, rales, significant decrease AE with healing VATS incision site Heart: RRR without murmur, gallop, or rubs. No ectopy Abdomen: Normal abdominal exam, Abdomen soft, non-tender. Bowel sounds normal. No masses, organomegaly Extremities: No deformities, edema, skin discoloration, clubbing or cyanosis. Good capillary refill. Peripheral pulses: present Neuro: Deferred LAST LAB RESULTS: No results found for this basename: inr:1,ptsec:1 No results found for: GLUC, K, NA, CHLOR, CO2, CREAT, BUN, ANION, CA, TPROT, ALB, TBILI, ALKPHOS, AST, ALT No results found for: GLUC DATA: Diagnostic tests reviewed for today's visit, films/specimens were personally reviewed by me: OTHER TESTING: Reviewed CXR pre op showing right upper lobe cavity Also post op CXR showing post op changes otherwise no air fluid levels, no infiltrates Medications reviewed Education provided today regarding the stated disease states IMPRESSIONS: 1.right upper lobe cavity s/p lobectomy likely from fungal infection 2.History and imaging suggestive of emphysema 3.cough PLAN: Most of the imaging and pathology reports are not available at this moment Patient likely with 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 For his cough looks in part related to his nasal congestion Start nasal steroids and OTC antiHistamine Start Stiolto for SOB Follow up in 6 months Written and verbal health teaching given to patient, patient verbalizes understanding and agrees with treatment plan. Electronically Signed: Rock Wilkerson MD July 17, 2017 CNOV Observed: 07/17/2017 Status: COMPLETED Source: [place] 1:00 PM [facility] REPOSITORY Office Visit ([facility]) CHARLIE AMAYA JR ([id number]) 1975 M Date Time Provider Department 07/17/17 1:00 PM [facility] During your visit today, we recorded the following information about you: Pulse Respiration Blood pressure Weight 77/minute 16/minute 168/101 56.7 kg Height 1.765 m Rock Wilkerson MD 07/17/2017 2:26 PM Signed Your cough is in part related to your nasal drip and COPD I will start you today on a new inhaler to take it once a day and a nasal steroids Please take claritin/bunny over the counter to help your nasal drainage and congestion Also keep taking your cough and mold medicines Avoid smoking as much as possible Follow up with us in 6 months I will obtain a ct chest and a breathing test in 6 months Rock Wilkerson MD 07/17/2017 10:10 PM Signed PULMONARY MEDICINE HISTORY AND PHYSICAL Patient Name: Charlie Amaya JR? ? PRIMARY CARE PHYSICIAN: No Pcp ? REFERRING PHYSICIAN: Self CHIEF COMPLAINT: Here for second opinion for cough and dyspnea after right upper lobectomy HISTORY OF PRESENT ILLNESS: Charlie Amaya JR is a 41 year old male, Ht 176.5 cm (5' 9.5ANDquot;) BMI 18.19 kg/m2, with a history of emphysema and cavitary lung lesion s/o resection This patient is here for first Pulmonary office visit and consultation I reviewed available objective data including imaging as available. Main symptoms include: dyspnea on exertion and cough. Patient was recently diagnosed with right upper lobe cavitary lesion ( mold infection per patient), no other data available, he underwent VATS and right upper lobectomy, he was doing well post op except for non productive cough and dyspnea on exertion, he does have significant nasal clear watery discharge, he does have h/o RA and is on chronic steroids,, he was a heavy smoker but quit last month after the surgery. PAST MEDICAL HISTORY Diagnosis Date - COPD (chronic obstructive pulmonary disease) (HCC) - Rheumatoid arthritis (HCC) PAST SURGICAL HISTORY Procedure Laterality Date - REMOVE LUNG/CHEST WALL Right 06/19/2017 History reviewed. No pertinent family history. No reported family hx of ILD fibrosis, PAH, Tb, lung cancer, A1AT deficiency Social History Substance Use Topics - Smoking status: Former Smoker Types: Cigarettes Quit date: 05/2017 - Smokeless tobacco: Current User Types: Chew Comment: 5 cigarettes a day - Alcohol use No Ambulatory, see vaccine HX, Occupation no h/o dust exposure CURRENT OUTPATIENT MEDICATIONS: amoxicillin-clavulanic acid (AUGMENTIN) 500-125 mg per tablet ENBREL SURECLICK 50 mg/mL (0.98 mL) pnij leflunomide (ARAVA) 20 mg tablet meloxicam (MOBIC) 15 mg tablet Take 15 mg by mouth once daily. oxyCODONE-acetaminophen (PERCOCET) 5-325 mg tablet predniSONE (DELTASONE) 10 mg tablet Take 10 mg by mouth once daily. traMADol (ULTRAM) 50 mg tablet Take 50 mg by mouth every 8 hours as needed. voriconazole (VFEND) 200 mg tablet Take 200 mg by mouth twice daily. omeprazole (PRILOSEC) 20 mg capsule Take 20 mg by mouth once daily. melatonin 10 mg cap Take 2 capsules by mouth daily at bedtime. MULTIVIT-MIN/FOLIC/VIT K/LYCOP (ONE-A-DAY MEN'S MULTIVITAMIN ORAL) Take 1 tablet by mouth once daily. FERROUS SULFATE (IRON ORAL) Take 1 tablet by mouth once daily. omega 8-wwl-jhe-fish oil (FISH OIL) 900-1,400 mg cpDR Take 1 tablet by mouth once daily. Potassium 99 mg tab Take 1 tablet by mouth once daily. mometasone (NASONEX) 50 mcg/actuation nasal spray Use 2 Sprays in each nostril once daily. tiotropium-olodaterol (STIOLTO RESPIMAT) 2.5-2.5 mcg/actuation mist Inhale 2.5 mcg as instructed once daily. ALLERGIES: ALLERGIES Allergen Reactions - Methotrexate Rash REVIEW OF SYSTEMS Constitutional: Well developed. no acute distress throughout the interview. No dyspnea throughout the interview; not acutely ill. No fevers, chills, night sweats HEENT: Negative for frequent or significant headaches, No changes in hearing or vision, no epistaxis or other nasal problems, normal pharynx. Good voice. Denies lymphadenopathy; denies allergic rhinitis. No tinnitus. RESPIRATORY: intermittent dyspnea on exertion, intermittent wheezing, no hemoptysis, denies excessive phlegm, nonpurulent phlegm, no pleuritic pain TABBY: denies apnea, hypersomnolence, cpap CARDIOVASCULAR: no palpitations, no heart failure, no edema, no chest pain, no stents. No hx CABG GASTROINTESTINAL: Negative for abdominal discomfort, blood in stools or black stools or change in bowel habits, no significant weight loss. No liver failure or active hepatitis. No biliary colic. GENITOURINARY: No history of dysuria, urgency, frequency, or incontinence, mass, hematuria, or pyuria NECKTIE STITCHER: Not reviewed MUSCULOSKELETAL: presence of chronic joint pain related to his RA, No serositis NEUROLOGIC:Negative for focal numbness or weakness, headaches, dizziness or syncope or near-syncope. No recent CVA/TIA. No gait disturbance. No seizures. SKIN: Negative for lesions, rash, and itching. No jaundice PSYCHIATRIC: Negative for sleep disturbance, mood disorder and recent psychosocial stressors. HEMATOLOGIC/LYMPHATIC/IMMUNOLOGIC: no anemia. No hx lymphoma. Denies bleeding diathesis or clotting abnormalities. ENDOCRINE: Negative for cold or heat intolerance, polyuria, polydipsia and goiter. denies thyroid issues. Fatigue present as well as recent weight loss The remainder of the ROS was negative or as per documentation. PHYSICAL EXAMINATION: VITAL SIGNS: BP 168/101 Pulse 77 Resp 16 Ht 5' 9.5ANDquot; (1.77m) Wt 125 lb (56.7kg) SpO2 97[ra]% BMI 18.20 kg/(m2). General appearance: Alert, in no acute distress, Thin and cachectic , looks chronically ill Skin: Skin color, texture, turgor normal, no suspicious rashes or lesions Head: Normocephalic, no masses, lesions, tenderness or abnormalities Eyes: Anicteric sclera. Pupils are equally round and reactive to light. Extraocular movements are intact. Ears: External ears normal, canals clear Nose/Sinuses: Nares normal, septum midline, mucosa normal, no drainage or sinus tenderness Oropharynx: Lips, mucosa, and tongue normal, teeth and gums normal, oropharynx normal Neck: Supple, no adenopathy; thyroid symmetric, normal size, no bruits Back: Normal exam Lungs: Lungs clear to auscultation. No wheezing, rhonchi, rales, significant decrease AE with healing VATS incision site Heart: RRR without murmur, gallop, or rubs. No ectopy Abdomen: Normal abdominal exam, Abdomen soft, non-tender. Bowel sounds normal. No masses, organomegaly Extremities: No deformities, edema, skin discoloration, clubbing or cyanosis. Good capillary refill. Peripheral pulses: present Neuro: Deferred LAST LAB RESULTS: No results found for this basename: inr:1,ptsec:1 No results found for: GLUC, K, NA, CHLOR, CO2, CREAT, BUN, ANION, CA, TPROT, ALB, TBILI, ALKPHOS, AST, ALT No results found for: GLUC DATA: Diagnostic tests reviewed for today's visit, films/specimens were personally reviewed by me: OTHER TESTING: Reviewed CXR pre op showing right upper lobe cavity Also post op CXR showing post op changes otherwise no air fluid levels, no infiltrates Medications reviewed Education provided today regarding the stated disease states IMPRESSIONS: 1.right upper lobe cavity s/p lobectomy likely from fungal infection 2.History and imaging suggestive of emphysema 3.cough PLAN: Most of the imaging and pathology reports are not available at this moment Patient likely with 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 For his cough looks in part related to his nasal congestion Start nasal steroids and OTC antiHistamine Start Stiolto for SOB Follow up in 6 months Written and verbal health teaching given to patient, patient verbalizes understanding and agrees with treatment plan. Electronically Signed: Rock Wilkerson MD July 17, 2017 Referring Provider: SELF [[id number]] Allergies As of Date: 07/17/2017 Noted Allergy Reaction METHOTREXATE 07/17/2017 2 - Rash Date Reviewed: 07/17/2017 Reviewed by: Hilton Lassiter - Fully Assessed Reason for Visit: Consult [502] Cmt: lung sugery--removal right lobe COPD [27] Primary Visit Diagnosis:COPD with chronic bronchitis (HCC) [J44.9] Other Visit Diagnoses:S/P lobectomy of lung [Z90.2] Dyspnea and respiratory abnormalities [R06.00, R06.89] Cavitary lung disease [J98.4] Fungal infection of lung [B49] Cough [R05] Order(s):mometasone (NASONEX) 50 mcg/actuation nasal sprayUse 2 Sprays in each nostril once daily.Disp: 1 gRfl: 5 tiotropium-olodaterol (STIOLTO RESPIMAT) 2.5-2.5 mcg/actuation mistInhale 2.5 mcg as instructed once daily.Disp: 1 InhalerRfl: 5 CT CHEST WO IVCON [[id number]] Order #: [id number] FUTURE SPIROMETRY - BASELINE AND POST DILATOR [[id number]] Order #: [id number] FUTURE Prescriptions as of 07/17/2017 Sig: AMOXICILLIN 500 MG-POTASSIUM * ENBREL SURECLICK 50 MG/ML (0.* LEFLUNOMIDE 20 MG TABLET MELOXICAM 15 MG TABLET Take 15 mg by mouth once luis* OXYCODONE-ACETAMINOPHEN 5 MG-* PREDNISONE 10 MG TABLET Take 10 mg by mouth once luis* TRAMADOL 50 MG TABLET Take 50 mg by mouth every 8 h* VORICONAZOLE 200 MG TABLET Take 200 mg by mouth twice da* OMEPRAZOLE 20 MG CAPSULE,JESSICA* Take 20 mg by mouth once luis* MELATONIN 10 MG CAPSULE Take 2 capsules by mouth luis* ONE-A-DAY MEN'S MULTIVITAMIN * Take 1 tablet by mouth once d* IRON ORAL Take 1 tablet by mouth once d* OMEGA 2-[facility]-FISH OIL 900 * Take 1 tablet by mouth once d* POTASSIUM 99 MG TABLET Take 1 tablet by mouth once d* MOMETASONE 50 MCG/ACTUATION N* Use 2 Sprays in each nostril * TIOTROPIUM 2.5 MCG-OLODATEROL* Inhale 2.5 mcg as instructed * Medication notes this encounter AMOXICILLIN 500 MG-POTASSIUM CLAVULANATE 125 MG TABLET >> Hilton Lassiter 07/17/2017 1:46 PM >> HILTON LASSITER MonJul 17, 2017 1:46 PM Course completed ENBREL SURECLICK 50 MG/ML (0.98 ML) SUBCUTANEOUS PEN INJECTOR >> Hilton Lassiter 07/17/2017 1:46 PM >> HILTON LASSITER MonJul 17, 2017 1:46 PM Not taking LEFLUNOMIDE 20 MG TABLET >> Hilton Lassiter 07/17/2017 1:50 PM >> HILTON LASSITER MonJul 17, 2017 1:50 PM Not taking OXYCODONE-ACETAMINOPHEN 5 MG-325 MG TABLET >> Hilton Lassiter 07/17/2017 1:50 PM >> HILTON LASSITER MonJul 17, 2017 1:50 PM Not taking Problem List As Of Date: 07/17/2017 (None) Other instructions from your clinician: Your cough is in part related to your nasal drip and COPD I will start you today on a new inhaler to take it once a day and a nasal steroids Please take claritin/bunny over the counter to help your nasal drainage and congestion Also keep taking your cough and mold medicines Avoid smoking as much as possible Follow up with us in 6 months I will obtain a ct chest and a breathing test in 6 months Prescriptions ordered this encounter Disp Refills Start End MOMETASONE 50 MCG/ACTUATION NASAL SP* 1 g 5 07/17/2017 08/16/2017 Route: EACH NOSTRIL Sig: Use 2 Sprays in each nostril once daily. TIOTROPIUM 2.5 MCG-OLODATEROL 2.5 MC* 1 In* 5 07/17/2017 08/16/2017 Route: INHALATION Sig: Inhale 2.5 mcg as instructed once daily. Disposition: Return in about 6 months (around 01/17/2018). Follow-up and Disposition History Recorded Encounter Status:Closed by ROCK WILKERSON MD on 07/17/17 EMERGENCY DEPARTMENT Observed: 07/13/2017 Status: F Source: [facility] SUMMARY 7:32 AM [facility] EMERGENCY DEPARTMENT SUMMARY NAME NUMBER SEX AGE ADMIT DISC TYPE MED.RECORD# FRANKLYN Mclain [id number] M 41 07/09/17 07/10/17 Samantha [id number] ROOM:[facility] DATE OF :1975 PHYSICIAN NO.:[id number] PHYSICIAN NAME:MERCY Quispe D.O. PHYSICIAN:NO DOCTOR ON ADMISSION SHEET HISTORY OF PRESENT ILLNESS: The patient came in. The patient has had right-sided chest pain since he had his right upper lobe removed for an aspergillosis infection. He has been getting more active. He is supposed to see a lung doctor next Monday. It is giving him pain, and he presents to the Emergency Department. He has had a questionable fever. He is weak and tired. He has a cough. He has had nausea and vomiting twice today. It is worse when he takes a deep breath or moves. He denies any shortness of breath. PAST MEDICAL HISTORY: He has had pneumonia, COPD, and lung removal. SOCIAL HISTORY: He just stopped smoking. He rarely drinks alcohol. REVIEW OF SYSTEMS: Ten systems were reviewed and negative except as mentioned above. PHYSICAL EXAMINATION: He is an awake, alert and oriented male in no acute distress. He is afebrile. Pulse is 106, respirations 22, blood pressure 170/112, and pulse oximetry 97% on room air. Head is normocephalic, atraumatic. Eyes: Pupils are equal, round and reactive to light. Extraocular muscles are intact. Nares are patent. Throat has adequate oral moisture. Uvula is midline. Neck is supple without petechiae or rash. Heart rate without murmur. S1 equal to S2. No S3 or S4 appreciated. Lungs are clear to auscultation bilaterally. No rales, rhonchi or retractions. Abdomen is soft, nontender and nondistended. Skin is warm and dry. DIAGNOSTIC DATA: EKG shows a rate of 108, normal axis, and no ST elevation or depression. He had a CT which showed no obvious changes other than his recent postoperative changes. No DVT. His white count was 13,000. Hemoglobin and hematocrit are 11 and 33. Platelet count is 394,000. Sodium is 134, BUN 11 and creatinine 0.7. EMERGENCY DEPARTMENT COURSE AND TREATMENT: We will give him two Percocet for pain, and he will be discharged in stable condition. DIAGNOSIS: Right chest pain, status post lobectomy. PLAN/DISPOSITION: The patient will be discharged to home. D: Daniel Quispe DO TD: 00:57 JOB #: [id number] Electronically signed by: MERCY Quispe D.O. 07/13/17 07:32 Transcribed by: aroldo 07/10/2017 17:02 CT CHEST (PE PROTOCOL) Observed: 07/09/2017 Status: F [facility] [place] [id number] Patient: CHARLIE AMAYA Phone#: : [phone] Age: 41 Gender: M Pt. Type: ER Account: [id number] Location: [facility] Ordering: DANIEL QUISPE Exam Date: 07/09/2017/23:32 Family Phys: NO DOCTOR Charge Code: [id number] Physician: [place] Order #: [id number] DLP Dose#: 2.40 PROCEDURE: CT CHEST WITH CONTRAST FOR PE COMPARISON: [facility], CT, CHEST PE W CON, 06/04/2017, 13:56. INDICATIONS: Chest pain TECHNIQUE: After obtaining the patient's consent, CT images were obtained with non-ionic intravenous contrast material. Multi-planar images were created to optimize visualization of vascular anatomy with MPR/MIPS and 3D imaging. All CT scans at this facility use dose modulation, iterative reconstruction, and/or weight based dosing when appropriate to reduce radiation dose to as low as reasonably achievable. IV CONTRAST: Omnipaque 350,4.5ml TOTAL DOSE: 2.40 CTDIvol(mGy) FINDINGS: VASCULATURE: Normal. No visible pulmonary arterial thrombus or attenuation. AORTA: Normal. No aneurysm or dissection. LUNGS: There is loss of volume in the right upper lobe. An air fluid level is present. Speckled lucencies present within the fluid collection. There is history of right upper lobe resection. This finding may be related to postoperative change with residual pleural air and fluid although infectious etiology cannot be excluded Linear atelectasis versus fibrosis is present in the right middle lobe. There is a bulla present in lung base. Adjacent to the ampulla there is patchy infiltrate. NADINE: Normal. No mass or adenopathy. MEDIASTINUM: Normal. No mass or adenopathy. CARDIAC: Normal. No enlargement, pericardial thickening, or significant calcification. PLEURA: Nodular pleural thickening is present anteriorly in the left mid lung unchanged from prior exam. CHEST WALL: Normal. No mass or axillary adenopathy. Continued Report - Page 2 of 2 Patient: CHARLIE AMAYA Phone#: : 1975 Age: 41 Gender: M Pt. Type: ER Account: [id number] Location: [facility] Ordering: DANIEL QUISPE Exam Date: 07/09/2017/23:32 Family Phys: NO DOCTOR Charge Code: [id number] Physician: [place] Order #: [id number] DLP Dose#: 2.40 LIMITED ABDOMEN: Normal. Limited images of the upper abdomen are unremarkable. BONES: Normal. No bony lesion or fracture. OTHER: Negative. CONCLUSION: 1. There has been right upper lobe resection. A fluid level is present in at the right apex and may be related to residual pleural air with debris or fluid. Infectious etiology however cannot be excluded. 2. There is a new subpleural bleb at the right lung base with adjacent patchy infiltrate. Dictated by: Kami Benítez MD on 07/10/2017 at 9:27 Approved by: Kami Benítez MD on 07/10/2017 at 9:27 CBC Collected: 07/09/2017 Status: F Source: [facility] 10:40 PM [facility] REPOSITORY TYPE CODE TESTS RESULT OUT OF RANGE REFERENCE UNITS LAB CBC(LOINC) CBC Result Comment: CBC-COMPLETE BLOOD COUNT LAB WBC(LOINC) 4.5 - 10.8 x 10EE3/UL WBC High 13.6 LAB RBC(LOINC) 4.50 - x 10EE6/UL 6.00 RBC Low 4.13 LAB HEMOGLOBIN(LOINC 13.0 - g/dl ) 17.5 Low HEMOGLOBIN 11.1 LAB HEMATOCRIT(LOINC 40.0 - % ) 52.0 Low HEMATOCRIT 33.6 LAB MCV(LOINC) 81 - 98 fl MCV 82 LAB MCH(LOINC) 27 - 33 pg MCH 27 LAB MCHC(LOINC) 32 - 36 X10 3 MCHC 33 LAB RDW/CV(LOINC) 12.0 - % 15.6 RDW/CV High 16.1 LAB PLATELET(LOINC) 150 - 450 x10EE3/UL PLATELET 394 LAB MPV(LOINC) 6.4 - 10.5 fl MPV 9.1 Result Comment: AUTOMATED DIFFERENTIAL LAB NEUT %(LOINC) 46.0 - 76.0 % NEUT % 75.4 LAB LYMPH %(LOINC) 20.0 - 45.0 % Low LYMPH % 13.3 LAB MONOS %(LOINC) 0.0 - 10.0 % MONOS % High 10.9 LAB EO %(LOINC) 0.0 - 7.0 % EO % 0.1 LAB BASO %(LOINC) 0.0 - 2.0 % BASO % 0.3 LAB Lymph #(LOINC) 0.80 - 2.80 x10EE3/U L Lymph # 1.80 LAB Neut #(LOINC) 1.50 - 7.10 x10EE3/U L Neut # High 10.30 LAB [place] #(LOINC) 0.20 - 1.00 x10EE3/U L [place] # High 1.50 LAB EO #(LOINC) 0.00 - 0.50 x10EE3/U L EO # 0.00 LAB Baso #(LOINC) 0.00 - 0.10 x10EE3/U L Baso # 0.00 LAB MANUAL DIFF(LOINC) MANUAL DIFF N/A LAB MORPHOLOGY(INC ) MORPHOLOGY N/A Result Comment: {CD] Performed By: #### [id number] #### [facility],[address] [place] [address] CMP WITH EGFR Collected: 07/09/2017 Status: F Source: [facility] 10:40 PM [facility] REPOSITORY TYPE CODE TESTS RESULT OUT OF RANGE REFERENCE UNITS LAB CMP with eGFR(INC) CMP with eGFR Result Comment: COMPREHENSIVE METABOLIC PANEL LAB SODIUM(LOINC) 136 - 145 mmol/l SODIUM Low 134 LAB POTASSIUM(LOINC) 3.5 - 5.1 mmol/L POTASSIUM 4.3 LAB CHLORIDE(LOINC) 98 - 107 mmol/L CHLORIDE Low 97 LAB CO2(LOINC) 21.0 - mmol/L 31.0 CO2 28.1 LAB GLUCOSE(LOINC) 74 - 106 mg/dl GLUCOSE High 107 LAB BUN(LOINC) 6 - 20 mg/dl BUN 11 LAB CREATININE(LOINC) 0.7 - 1.3 mg/dl CREATININE 0.7 LAB AST/SGOT(LOINC) 13 - 39 U/L AST/SGOT 16 LAB ALK PHOS(LOINC) 38 - 126 U/L ALK PHOS 98 LAB CALCIUM(LOINC) 8.6 - mg/dl 10.2 CALCIUM 9.3 LAB TOTAL 6.4 - 8.3 g/dl PROTEIN(LOINC) TOTAL PROTEIN 8.0 LAB ALBUMIN(LOINC) 3.4 - 4.8 g/dL ALBUMIN 3.8 LAB GLOBULIN(LOINC) 1.5 - 3.8 G/DL GLOBULIN High 4.2 LAB A/G RATIO(LOINC) 0.9 - 1.6 A/G RATIO 0.9 LAB TOTAL BILI(LOINC) 0.0 - 1.5 mg/dl TOTAL BILI 0.2 LAB B/C RATIO(LOINC) 0 - 30 ratio B/C RATIO 16 LAB ALT/SGPT(LOINC) 10 - 40 U/L ALT/SGPT 15 LAB ANION GAP(LOINC) 10 - 20 mmol/L ANION GAP 13 LAB AGE(LOINC) years AGE 41 LAB eGFR(LOINC) 60 - 999 ML/MINUTE eGFR >60 LAB eGFR(AA)(LOINC) 60 - 999 ML/MINUTE eGFR(AA) >60 Result Comment: ACCORDING TO THE NATIONAL KIDNEY DISEASE EDUCATION PROGRAM(NKDE), A NORMAL eGFR IS A VALUE GREATER THAN OR EQUAL TO 60 ML/MIN/1.73 SQ METERS. CHRONIC KIDNEY DISEASE: <60mL/MIN/1.73 SQ METERS KIDNEY FAILURE: <15mL/MIN/1.73 SQ METERS THIS TEST SHOULD ONLY BE USED FOR PATIENTS 18 YEARS OF AGE AND OLDER. Performed By: #### [id number] #### [facility],[address] [place] [address] CBC Collected: 07/08/2017 Status: F Source: [facility] 12:18 PM [facility] REPOSITORY TYPE CODE TESTS RESULT OUT OF RANGE REFERENCE UNITS LAB CBC(LOINC) CBC Result Comment: CBC-COMPLETE BLOOD COUNT LAB WBC(LOINC) 4.5 - 10.8 x 10EE3/UL WBC High 11.0 LAB RBC(LOINC) 4.50 - x 10EE6/UL 6.00 RBC Low 4.36 LAB HEMOGLOBIN(LOINC 13.0 - g/dl ) 17.5 Low HEMOGLOBIN 11.8 LAB HEMATOCRIT(LOINC 40.0 - % ) 52.0 Low HEMATOCRIT 35.5 LAB MCV(LOINC) 81 - 98 fl MCV 82 LAB MCH(LOINC) 27 - 33 pg MCH 27 LAB MCHC(LOINC) 32 - 36 X10 3 MCHC 33 LAB RDW/CV(LOINC) 12.0 - % 15.6 RDW/CV High 16.2 LAB PLATELET(LOINC) 150 - 450 x10EE3/UL PLATELET 373 LAB MPV(LOINC) 6.4 - 10.5 fl MPV 8.9 Result Comment: AUTOMATED DIFFERENTIAL LAB NEUT %(LOINC) 46.0 - 76.0 % NEUT % 65.4 LAB LYMPH %(LOINC) 20.0 - 45.0 % Low LYMPH % 15.5 LAB MONOS %(LOINC) 0.0 - 10.0 % MONOS % High 11.7 LAB EO %(LOINC) 0.0 - 7.0 % EO % 6.3 LAB BASO %(LOINC) 0.0 - 2.0 % BASO % 1.1 LAB Lymph #(LOINC) 0.80 - 2.80 x10EE3/U L Lymph # 1.70 LAB Neut #(LOINC) 1.50 - 7.10 x10EE3/U L Neut # High 7.20 LAB [place] #(LOINC) 0.20 - 1.00 x10EE3/U L [place] # High 1.30 LAB EO #(LOINC) 0.00 - 0.50 x10EE3/U L EO # High 0.70 LAB Baso #(LOINC) 0.00 - 0.10 x10EE3/U L Baso # 0.10 LAB MANUAL DIFF(INC) MANUAL DIFF N/A LAB MORPHOLOGY([facility] ) MORPHOLOGY N/A Result Comment: {CD] Performed By: #### [id number] #### [facility],[address] [place] [address] CMP WITH EGFR Collected: 07/08/2017 Status: F Source: [facility] 12:18 PM [facility] REPOSITORY TYPE CODE TESTS RESULT OUT OF RANGE REFERENCE UNITS LAB CMP with eGFR([facility]) CMP with eGFR Result Comment: COMPREHENSIVE METABOLIC PANEL LAB SODIUM(LOINC) 136 - 145 mmol/l SODIUM Low 134 LAB POTASSIUM(LOINC) 3.5 - 5.1 mmol/L POTASSIUM 3.8 LAB CHLORIDE(LOINC) 98 - 107 mmol/L CHLORIDE Low 97 LAB CO2(LOINC) 21.0 - mmol/L 31.0 CO2 27.8 LAB GLUCOSE(LOINC) 74 - 106 mg/dl GLUCOSE High 107 LAB BUN(INC) 6 - 20 mg/dl BUN 7 LAB CREATININE(LOINC) 0.7 - 1.3 mg/dl CREATININE 0.7 LAB AST/SGOT(LOINC) 13 - 39 U/L AST/SGOT 17 LAB ALK PHOS(LOINC) 38 - 126 U/L ALK PHOS 95 LAB CALCIUM(LOINC) 8.6 - mg/dl 10.2 CALCIUM 9.3 LAB TOTAL 6.4 - 8.3 g/dl PROTEIN(LOINC) TOTAL PROTEIN 7.8 LAB ALBUMIN(LOINC) 3.4 - 4.8 g/dL ALBUMIN 3.6 LAB GLOBULIN(LOINC) 1.5 - 3.8 G/DL GLOBULIN High 4.2 LAB A/G RATIO(LOINC) 0.9 - 1.6 A/G RATIO 0.9 LAB TOTAL BILI(LOINC) 0.0 - 1.5 mg/dl TOTAL BILI 0.3 LAB B/C RATIO(LOINC) 0 - 30 ratio B/C RATIO 10 LAB ALT/SGPT(LOINC) 10 - 40 U/L ALT/SGPT 14 LAB ANION GAP(LOINC) 10 - 20 mmol/L ANION GAP 13 LAB AGE(LOINC) years AGE 41 LAB eGFR(LOINC) 60 - 999 ML/MINUTE eGFR >60 LAB eGFR(AA)(LOINC) 60 - 999 ML/MINUTE eGFR(AA) >60 Result Comment: ACCORDING TO THE NATIONAL KIDNEY DISEASE EDUCATION PROGRAM(NKDE), A NORMAL eGFR IS A VALUE GREATER THAN OR EQUAL TO 60 ML/MIN/1.73 SQ METERS. CHRONIC KIDNEY DISEASE: <60mL/MIN/1.73 SQ METERS KIDNEY FAILURE: <15mL/MIN/1.73 SQ METERS THIS TEST SHOULD ONLY BE USED FOR PATIENTS 18 YEARS OF AGE AND OLDER. Performed By: #### [id number] #### [facility],[address] [place] [address] XR CHEST 2 VIEWS Observed: 07/06/2017 Status: F Source: [facility] [employer] 2:06 PM [facility] REPOSITORY ORIGINAL Chest 2 views HISTORY: Follow-up pneumothorax COMPARISON: 06/25/2017 The heart is normal in size and there is no vascular congestion present. There is mild volume loss in the right hemithorax similar to the previous exam. There are clips adjacent to the right hilum from previous surgery. Right-sided PICC has been removed. The previously seen right pneumothorax has decreased in size since the prior exam and there may be only a very tiny residual right apical pneumothora x. There is minimal atelectasis at the right apex suspected. No confluent consolidation or pleural fluid seen. There are degenerative changes in the spine. IMPRESSION: Near complete resolution of right pneumothorax since the prior exam with only a tiny residual pneumothorax seen. Interpreted By: Charlie Vazquez MD Preliminary Report By: Charlie Vazquez MD Electronically Signed By: Charlie Vazquez MD Dictated Date: 07/06/2017 2:41:20 PM Prelim Date: 07/06/2017 2:41:20 PM Sign Date: 07/06/2017 2:42:30 PM XR CHEST 2 VIEWS Observed: 06/25/2017 Status: F Source: [place] 5:55 AM [facility] REPOSITORY ORIGINAL XR CHEST 2 VIEWS CLINICAL STATEMENT: ptx COMPARISON: 06/24/2017 FINDINGS: There is continued visualization of a right apical pneumothorax that is about 4 cm in maximum. Not significantly changed. No underlying lung collapse or mediastinal shift. No change in the stephen earance of the lungs. Normal heart size. Right PICC line as previously. IMPRESSION: Stable right pneumothorax. Interpreted By: Erasto Ray MD Preliminary Report By: Erasto Ray MD Electronically Signed By: Erasto Ray MD Dictated Date: 06/25/2017 6:42:44 AM Prelim Date: 06/25/2017 6:42:44 AM Sign Date: 06/25/2017 6:45:06 AM XR CHEST 2 VIEWS Observed: 06/24/2017 Status: F Source: [place] 12:00 PM [facility] REPOSITORY ORIGINAL XR CHEST 2 VIEWS CLINICAL STATEMENT: chest tube removed. COMPARISON: 06/23/2017 FINDINGS: Right chest tube has been removed. There is a small right apical pneumothorax with a maximal thickness approaching 4 cm. Right upper extremity PICC line tip terminates at the cavoatrial juncti on. Surgical clips are noted near the right hilar region. The left lung is clear and well expanded. The heart is not enlarged. Likely there is right apical pleural fluid or thickening. IMPRESSION: Small right apical pneumothorax, interval chest tube removal. Size of the pneumothorax appears somewhat larger than on the previous exam. Interpreted By: Cristiane Sal MD Preliminary Report By: Cristiane Sal MD Electronically Signed By: Cristiane Sal MD Dictated Date: 06/24/2017 1:46:28 PM Prelim Date: 06/24/2017 1:46:28 PM Sign Date: 06/24/2017 1:51:34 PM XR CHEST 2 VIEWS Observed: 06/23/2017 Status: F Source: [place] 9:51 AM [facility] REPOSITORY ORIGINAL XR CHEST 2 VIEWS CLINICAL STATEMENT: CT removal; recent right lung surgery COMPARISON: Chest radiograph 06/22/2017 FINDINGS: The cardiomediastinal contours appear unchanged, again there is rightward shift of the superior mediastinum.. A right PICC is present, the tip appears unchanged. Sutures are seen in the right upper lobe. There is a small right apical pneumothorax which is not significantly changed. There is an opacity at the apex of the right hemidiaphragm which is not significantly changed. There has been r emoval of one of the large bore chest tubes. One large bore chest tube remains overlying the apex of the right hemidiaphragm. There is no vascular congestion. The left lung is clear. There are no suspicious osseous abnormalities. IMPRESSION: Other than the removal of one of the right large-bore chest tubes, there is no significant change from the comparison study. I have personally reviewed the images of this examination and agree with the resident's findings and interpretation. Interpreted By: Bonifacio Aiken MD Preliminary Report By: Froy Torres MD Electronically Signed By: Bonifacio Aiken MD Dictated Date: 06/23/2017 9:57:41 AM Prelim Date: 06/23/2017 10:02:46 AM Sign Date: 06/23/2017 10:39:08 AM XR CHEST 2 VIEWS Observed: 06/22/2017 Status: F Source: [place] [employer] 7:19 AM [facility] REPOSITORY ORIGINAL XR CHEST 2 VIEWS CLINICAL STATEMENT: abnormal breath sounds COMPARISON: 06/21/2017 FINDINGS: The cardiomediastinal contours are unchanged. 2 right-sided chest tubes projected the apex. Right apical opacity and shift of the superior mediastinum to the right is unchanged. Trace right ap ical pneumothorax is unchanged. Right PICC again noted. Left lung appears clear. No pleural effusion or vascular congestion. No acute osseous findings. IMPRESSION: No significant change. Interpreted By: Brianna Stockton Preliminary Report By: Brianna Stockton Electronically Signed By: Brianna Stockton Dictated Date: 06/22/2017 8:11:22 AM Prelim Date: 06/22/2017 8:11:22 AM Sign Date: 06/22/2017 8:13:39 AM XR CHEST 2 VIEWS Observed: 06/21/2017 Status: F Source: [place] [employer] 8:28 AM [facility] REPOSITORY ORIGINAL Chest 2 views HISTORY: Follow-up pneumothorax COMPARISON: 06/20/2017 2 right chest tubes terminate at the apex. There is a very small right pneumothorax present. Minimal right hemithorax volume loss is present with rightward shift of the heart and mediastinum. No consoli dation or pleural fluid seen. There are degenerative changes in the spine. The heart and pulmonary vessels are normal. IMPRESSION: Very small right apical pneumothorax. Interpreted By: Charlie Vazquez MD Preliminary Report By: Charlie Vazquez MD Electronically Signed By: Charlie Vazquez MD Dictated Date: 06/21/2017 8:52:27 AM Prelim Date: 06/21/2017 8:52:27 AM Sign Date: 06/21/2017 8:53:02 AM CBC Collected: 06/21/2017 Status: F Source: [facility] 5:17 AM [facility] REPOSITORY TYPE CODE TESTS RESULT OUT OF REFERENCE UNITS RANGE LAB WBC(LOINC) 4.50-10.80 10 3/mcL High WBC 12.50 LAB RBCCT(LOINC 4.50-6.00 10 6/mcL ) Low RBC 3.38 LAB HGB(LOINC) 13.0-17.5 G/dL Low Hgb 9.3 LAB HCT(LOINC) 40.0-52.0 % Low Hct 27.7 LAB MCV(LOINC) 81.0-100.0 fL MCV 82.0 LAB MCH(LOINC) 27.0-33.0 pg MCH 27.5 LAB MCHC(LOINC) 32.0-36.0 G/dL MCHC 33.5 LAB RDW(LOINC) 11.5-15.5 % RDW 15.5 LAB PLT(LOINC) 150-450 10 3/mcL Platelet 289 LAB MPV(LOINC) 6.4-10.5 fL MPV 8.6 Performed By: #### CBC, ADIFF, ANEU, GFR, CMP, PRALB #### [place] [address] .AUTO DIFF Collected: 06/21/2017 Status: F Source: [facility] 5:17 AM [facility] REPOSITORY TYPE CODE TESTS RESULT OUT OF REFERENCE UNITS RANGE LAB LAMONT(LOINC) 50.0-75.0 % Neutrophil % 62.3 LAB LYM(LOINC) 20.0-40.0 % Low Lymphocyte % 15.1 LAB MON(LOINC) 2.0-13.0 % Monocyte % 9.0 LAB EO(LOINC) 0.0-6.0 % High Eosinophil % 12.4 LAB BAS(LOINC) 0.0-2.5 % Basophil % 1.2 LAB ABLYM(LOIN 0.90-4.32 10 3/mcL C) Lymphocyte, 1.90 Absolute LAB KALYAN(LOINC 0.09-1.40 10 3/mcL ) Monocyte, 1.10 Absolute LAB AEOS(LOINC 0.00-0.65 10 3/mcL ) High Eosinophil, 1.50 Absolute LAB ABAS(LOINC 0.00-0.27 10 3/mcL ) Basophil, 0.20 Absolute Performed By: #### CBC, ADIFF, ANEU, GFR, CMP, PRALB #### [address] [address] .NEUABS Collected: 06/21/2017 Status: F Source: [facility] 5:17 AM [facility] REPOSITORY TYPE CODE TESTS RESULT OUT OF REFERENCE UNITS RANGE LAB ANEU(LOINC) 2.25-8.10 10 3/mcL Neutrophil, 7.80 Absolute Performed By: #### CBC, ADIFF, ANEU, GFR, CMP, PRALB #### [address] [address] .GFR Collected: 06/21/2017 Status: F Source: [facility] 5:17 [facility] REPOSITORY TYPE CODE TESTS RESULT OUT OF REFERENCE UNITS RANGE LAB GFRAA(LOINC ml/min/1.73 ) sqm GFR >60 [place] Result Comment: GFR Population mean for , Non- Americans Ages 20-29 = 116 mL/min/1.73 sq.m. Ages 30-39 = 107 mL/min/1.73 sq.m. Ages 40-49 = 99 mL/min/1.73 sq.m. Ages 50-59 = 93 mL/min/1.73 sq.m. Ages 60-69 = 85 mL/min/1.73 sq.m. Ages 70+ = 75 mL/min/1.73 sq.m. Chronic Kidney Disease: Less than 60 mL/min/1.73 square meters End Stage Renal Disease: Less than 15 mL/min/1.73 square meters LAB GFRNO(LOINC) ml/min/1.73sqm GFR Non- >60 Result Comment: GFR Population mean for , Non- Americans Ages 20-29 = 116 mL/min/1.73 sq.m. Ages 30-39 = 107 mL/min/1.73 sq.m. Ages 40-49 = 99 mL/min/1.73 sq.m. Ages 50-59 = 93 mL/min/1.73 sq.m. Ages 60-69 = 85 mL/min/1.73 sq.m. Ages 70+ = 75 mL/min/1.73 sq.m. Chronic Kidney Disease: Less than 60 mL/min/1.73 square meters End Stage Renal Disease: Less than 15 mL/min/1.73 square meters Performed By: #### CBC, ADIFF, ANEU, GFR, CMP, PRALB #### [place] [address] CMP Collected: 06/21/2017 Status: F Source: [facility] 5:17 AM [facility] TYPE CODE TESTS RESULT OUT OF REFERENCE UNITS RANGE LAB GLU(LOINC) 70-110 mg/dL Glucose Level 109 LAB NA(LOINC) 136-145 mEq/L Sodium Level 139 LAB K(LOINC) 3.5-5.0 mEq/L Potassium Level 4.2 LAB CL(LOINC) 98-110 mEq/L Chloride 101 LAB CO2(LOINC) 22-32 mEq/L CO2 High 33 LAB EBAL(LOINC 4.0-15.0 mEq/L ) Electrolyte Balance 5.0 LAB BUN(LOINC) 8.0-22.0 mg/dL BUN 15.0 LAB CRE(LOINC) 0.60-1.40 mg/dL Creatinine Lvl (s) 0.75 LAB BC(LOINC) 10.0-22.0 ratio BUN/Creatinine 20.0 Ratio LAB CA(LOINC) 8.4-10.1 mg/dL Calcium Lvl 8.4 LAB PROT(LOINC 6.0-8.5 G/dL ) Low Total Protein 5.6 LAB ALB(LOINC) 3.2-4.8 G/dL Low Albumin Level 2.2 LAB GLB(LOINC) 1.5-3.8 G/dL Globulin 3.4 LAB AG(LOINC) 0.9-1.6 ratio Low A/G Ratio 0.6 LAB BILT(LOINC 0.2-1.2 mg/dL ) Low Bili Total 0.1 LAB AP(LOINC) 38-126 U/L Alk Phos 70 LAB AST(LOINC) 8-34 U/L AST/SGOT 16 LAB ALT(LOINC) 12-55 U/L ALT/SGPT 17 Performed By: #### CBC, ADIFF, ANEU, GFR, CMP, PRALB #### [facility] [address] [place] [id number] PRALB Collected: 06/21/2017 Status: F Source: [facility] 5:17 AM [facility] REPOSITORY TYPE CODE TESTS RESULT OUT OF REFERENCE UNITS RANGE LAB PRALB(LOIN 18.0-38.0 mg/dL C) Low Prealbumin 13.6 Performed By: #### CBC, ADIFF, ANEU, GFR, CMP, PRALB #### [facility] [address] [place] [id number] XR CHEST 1 VIEW Observed: 06/20/2017 Status: F Source: [facility] 3:29 PM [facility] REPOSITORY ORIGINAL XR CHEST 1 VIEW CLINICAL STATEMENT: pneumothorax COMPARISON: 06/20/2017 at 5:39 AM FINDINGS:Right-sided chest tubes are in place as well as a RIGHT PICC line. The aeration pattern to the LEFT hemithorax is stable. There is volume loss of the RIGHT hemithorax with shift of the cardiac and mediastinal contours to the RIGHT. A tiny apical pneumothorax is present. No vascular congestion has developed. The bony thorax is stable. IMPRESSION:Post thoracotomy changes on the RIGHT with partial pneumonectomy and tiny apical pneumothorax Interpreted By: Val Burris MD Preliminary Report By: Val Burris MD Electronically Signed By: Val Burris MD Dictated Date: 06/20/2017 4:19:35 PM Prelim Date: 06/20/2017 4:19:35 PM Sign Date: 06/20/2017 4:20:16 PM XR CHEST 1 VIEW Observed: 06/20/2017 Status: F [facility] AM [facility] REPOSITORY ORIGINAL Clinical history: Follow-up after right upper lobectomy. COMPARISON: Chest x-ray on 06/19/2017. Portable AP radiograph of the chest was obtained at 5:30 AM. The 2 right chest tubes are unchanged in position. There is no visible pneumothorax. Postsurgical changes in right upper lung zone are noted. There is no acute infiltrate and no pleural fluid. IMPRESSION: No pneumothorax or acute abnormality. Interpreted By: Dave Romero MD Preliminary Report By: Dave Romero MD Electronically Signed By: Dave Romero MD Dictated Date: 06/20/2017 6:08:40 AM Prelim Date: 06/20/2017 6:08:40 AM Sign Date: 06/20/2017 6:10:05 AM XR CHEST 1 VIEW Observed: 06/19/2017 Status: F Source: [facility] 12:12 PM [facility] REPOSITORY ORIGINAL XR CHEST 1 VIEW CLINICAL STATEMENT: Abnormal breath sounds COMPARISON: 06/18/2017 FINDINGS:Postsurgical changes with partial pneumonectomy on the right is noted. 2 chest tubes and a right central venous catheter are now in place. Tip of the right central venous catheter rest in the s uperior vena cava. The left hemithorax is grossly stable with underlying hyperinflation. Cardiac and mediastinal contours are unremarkable. IMPRESSION:Interval right thoracotomy Interpreted By: Val Burris MD Preliminary Report By: Val Burris MD Electronically Signed By: Val Burris MD Dictated Date: 06/19/2017 12:32:57 PM Prelim Date: 06/19/2017 12:32:57 PM Sign Date: 06/19/2017 12:34:04 PM CBC Collected: 06/19/2017 Status: F Source: [facility] 11:53 AM [facility] REPOSITORY TYPE CODE TESTS RESULT OUT OF REFERENCE UNITS RANGE LAB WBC(LOINC) 4.50-10.80 10 3/mcL High WBC 21.10 LAB RBCCT(LOINC 4.50-6.00 10 6/mcL ) Low RBC 4.16 LAB HGB(LOINC) 13.0-17.5 G/dL Low Hgb 11.4 LAB HCT(LOINC) 40.0-52.0 % Low Hct 34.5 LAB MCV(LOINC) 81.0-100.0 fL MCV 82.9 LAB MCH(LOINC) 27.0-33.0 pg MCH 27.5 LAB MCHC(LOINC) 32.0-36.0 G/dL MCHC 33.2 LAB RDW(LOINC) 11.5-15.5 % High RDW 15.6 LAB PLT(LOINC) 150-450 10 3/mcL Platelet 357 LAB MPV(LOINC) 6.4-10.5 fL MPV 8.4 Performed By: #### CBC, ADIFF, ANEU, BMP, GFR #### [place] [id number] .AUTO DIFF Collected: 06/19/2017 Status: F Source: [facility] 11:53 AM [facility] REPOSITORY TYPE CODE TESTS RESULT OUT OF REFERENCE UNITS RANGE LAB LAMONT(LOINC) 50.0-75.0 % High Neutrophil % 88.2 LAB LYM(LOINC) 20.0-40.0 % Low Lymphocyte % 4.3 LAB MON(LOINC) 2.0-13.0 % Monocyte % 3.4 LAB EO(LOINC) 0.0-6.0 % Eosinophil % 3.5 LAB BAS(LOINC) 0.0-2.5 % Basophil % 0.6 LAB ABLYM(LOIN 0.90-4.32 10 3/mcL C) Lymphocyte, 0.90 Absolute LAB KALYAN(LOINC 0.09-1.40 10 3/mcL ) Monocyte, 0.70 Absolute LAB AEOS(LOINC 0.00-0.65 10 3/mcL ) High Eosinophil, 0.70 Absolute LAB ABAS(LOINC 0.00-0.27 10 3/mcL ) Basophil, 0.10 Absolute Performed By: #### CBC, ADIFF, ANEU, BMP, GFR #### [place] [address] .NEUABS Collected: 06/19/2017 Status: F Source: [facility] 11:53 [facility] REPOSITORY TYPE CODE TESTS RESULT OUT OF REFERENCE UNITS RANGE LAB ANEU(LOINC) 2.25-8.10 10 3/mcL High Neutrophil, 18.60 Absolute Performed By: #### CBC, ADIFF, ANEU, BMP, GFR #### [place] [address] BMP Collected: 06/19/2017 Status: F Source: [facility] 11:53 AM [facility] REPOSITORY TYPE CODE TESTS RESULT OUT OF REFERENCE UNITS RANGE LAB GLU(LOINC) 70-110 mg/dL Glucose High Level 155 LAB NA(LOINC) 136-145 mEq/L Sodium Level 139 LAB K(LOINC) 3.5-5.0 mEq/L Potassium Level 4.0 LAB CL(LOINC) 98-110 mEq/L Chloride 102 LAB CO2(LOINC) 22-32 mEq/L CO2 28 LAB EBAL(LOINC 4.0-15.0 mEq/L ) Electrolyte Balance 9.0 LAB BUN(LOINC) 8.0-22.0 mg/dL BUN 15.0 LAB CRE(LOINC) 0.60-1.40 mg/dL Creatinine Lvl (s) 0.90 LAB BC(LOINC) 10.0-22.0 ratio BUN/Creatinine 16.7 Ratio LAB CA(LOINC) 8.4-10.1 mg/dL Calcium Lvl 8.4 Performed By: #### CBC, ADIFF, ANEU, BMP, GFR #### [place] [address] .GFR Collected: 06/19/2017 Status: F Source: [facility] 11:53 AM [facility] TYPE CODE TESTS RESULT OUT OF REFERENCE UNITS RANGE LAB GFRAA(LOINC ml/min/1.73 ) sqm GFR >60 [place] Result Comment: GFR Population mean for , Non- Americans Ages 20-29 = 116 mL/min/1.73 sq.m. Ages 30-39 = 107 mL/min/1.73 sq.m. Ages 40-49 = 99 mL/min/1.73 sq.m. Ages 50-59 = 93 mL/min/1.73 sq.m. Ages 60-69 = 85 mL/min/1.73 sq.m. Ages 70+ = 75 mL/min/1.73 sq.m. Chronic Kidney Disease: Less than 60 mL/min/1.73 square meters End Stage Renal Disease: Less than 15 mL/min/1.73 square meters LAB GFRNO(LOINC) ml/min/1.73sqm GFR Non- >60 Result Comment: GFR Population mean for , Non- Americans Ages 20-29 = 116 mL/min/1.73 sq.m. Ages 30-39 = 107 mL/min/1.73 sq.m. Ages 40-49 = 99 mL/min/1.73 sq.m. Ages 50-59 = 93 mL/min/1.73 sq.m. Ages 60-69 = 85 mL/min/1.73 sq.m. Ages 70+ = 75 mL/min/1.73 sq.m. Chronic Kidney Disease: Less than 60 mL/min/1.73 square meters End Stage Renal Disease: Less than 15 mL/min/1.73 square meters Performed By: #### CBC, ADIFF, ANEU, BMP, GFR #### [address] [address] FINAL SURGICAL Observed: 06/19/2017 Status: F Source: [facility] PATHOLOGY REPORT 8:57 AM [facility]POSITORY . Pathology Reports Accession: Collected Date/Time: Received Date/Time: Pathologist: [id number] 06/19/2017 08:57 EST 06/20/2017 06:20 MD ADAM AREVALO Final Surgical Pathology Report DIAGNOSIS: A) 9 R LYMPH NODE -- NEGATIVE FOR TUMOR. B) LEVEL 7 LYMPH NODES -- THREE LYMPH NODES NEGATIVE FOR TUMOR. C) 11 R LYMPH NODE -- ONE LYMPH NODE NEGATIVE FOR TUMOR. D) 10 R LYMPH NODES -- THREE LYMPH NODES NEGATIVE FOR TUMOR. E) RIGHT UPPER LOBE LUNG, LOBECTOMY SPECIMEN -- SEVEN INTRAPULMONARY PERIBRONCHIAL LYMPH NODES NEGATIVE FOR TUMOR. 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 SILVER STAIN DOES NOT DEMONSTRATE ANGIO-INVASION. CLINICAL INFORMATION: Procedure: RIGHT VIDEO ASSISTED THORACOSCOPY / LOBECTOMY Preoperative diagnosis: RIGHT UPPER LESION Postoperative diagnosis: RIGHT UPPER LESION SPECIMEN: A LYMPH NODE - 9 R B LYMPH NODE - LEVEL 7 X3 C LYMPH NODE - 11 R D LYMPH NODE - 10 R X3 E LUNG, RESEC - RIGHT UPPER LOBE GROSS DESCRIPTION: _A. Received in formalin labeled 9R lymph node is a 1 cm black and hsu soft tissue. A S -1 B. Received in formalin labeled lymph node level 7 ??3 is a 2.2 x 1.5 x 0.6 cm black and hsu soft tissue. The specimen is bivalved. A S - 1 C. Received in formalin labeled lymph node 11 R are 2 black and hsu soft tissues, averaging 0.8 cm. A S -1 D. Received in formalin labeled lymph node 10 R (3) are 3 black and hsu soft tissues ranging from 0.7-1.6 cm in greatest dimension. A S -1 E. Received in formalin labeled right upper lobe is a 259 g, 19.5 x 9.6 x 6.5 cm product of a right upper lobectomy. The pleura is semitranslucent and ranges from smooth to rough particularly on the anterior surface. There is a 15.5 cm in length staple line which runs across the vascular and bronchial margins. The margin created following removal of the staple line is inked. The specimen is serially sectioned to show a 10.5 x 7.5 x 3 cm cavity filled with hsu grumous material. The parenchyma surrounding the cavity is focally indurated. The lesion comes to within 0.8 cm of the closest bronchial margin and 0.5 cm of the closest inked staple line margin. Several lymph nodes are identified. The inferior end of the lobe shows parenchyma that is red-hsu, patchy and subcrepitant. RS -10 Block Summary Pathology Reports Accession: Collected Date/Time: Received Date/Time: Pathologist: [id number] 06/19/2017 08:57 EST 06/20/2017 06:20 MD ADAM AREVALO GROSS DESCRIPTION: 1 bronchial margin 2 vascular margins 3 5 possible lymph nodes 4 1 node 5 -9 random sections of cavity, cassette 9 with closest inked staple line margin 10 parenchyma from inferior end of the lobe Dictated by SHAI LOPEZ ([facility]) MICROSCOPIC DESCRIPTION: A-E) Slides reviewed. Electronically Signed by Pathology Report verified by [facility] Electronically signed by ADAM PRASAD MD Sign out Date: 06/23/2017 11:54 Performing Lab: [address] Performed By: #### SPFR #### [place] [address] BGRP Collected: 06/19/2017 Status: F Source: [facility] 8:31 AM [facility] TYPE CODE TESTS RESULT OUT OF REFERENCE UNITS RANGE LAB PHRP(LOINC 7.380-7.460 ) pH (poct) - POC 7.414 LAB PCORP(LOIN 32.0-46.0 mmHg C) PCO2 - POC 43.2 LAB PO2RP(LOIN 74.0-108.0 mmHg C) PO2 - POC High 324.6 LAB HCORP(LOIN 21.0-29.0 mmol/L C) Bicarbonate - POC 27.0 LAB TCORP(LOIN 22.0-30.0 mmol/L C) Total CO2 - POC 28.3 LAB BERP(LOINC mmol/L ) Base Excess - POC 2.1 LAB O2RP(LOINC 92.0-96.0 % ) O2 High Saturation - POC 99.4 Performed By: #### BGRP, CLRP, HGBRP, GLURP, KRP, HCTRP, NARP, CARP #### [place] [address] CLRP Collected: 06/19/2017 Status: F Source: [facility] 8:31 AM [facility] REPOSITORY TYPE CODE TESTS RESULT OUT OF REFERENCE UNITS RANGE LAB CLRP(LOINC) 98-110 mEq/L Chloride - POC 102 Performed By: #### BGRP, CLRP, HGBRP, GLURP, KRP, HCTRP, NARP, CARP #### [place] [address] HGBRP Collected: 06/19/2017 Status: F Source: [facility] 8:31 AM [facility] REPOSITORY TYPE CODE TESTS RESULT OUT OF REFERENCE UNITS RANGE LAB HGBRP(LOIN 13.0-17.5 G/dL C) Low Hemoglobin - POC 11.8 Performed By: #### BGRP, CLRP, HGBRP, GLURP, KRP, HCTRP, NARP, CARP #### [place] [address] GLURP Collected: 06/19/2017 Status: F Source: [facility] 8:31 AM [facility] REPOSITORY TYPE CODE TESTS RESULT OUT OF REFERENCE UNITS RANGE LAB GLURP(LOINC 70-110 mg/dL ) High Glucose - POC 147 Performed By: #### BGRP, CLRP, HGBRP, GLURP, KRP, HCTRP, NARP, CARP #### [place] [address] KRP Collected: 06/19/2017 Status: F Source: [facility] 8:31 AM [facility] REPOSITORY TYPE CODE TESTS RESULT OUT OF REFERENCE UNITS RANGE LAB KRP(LOINC) 3.5-5.0 mEq/L Potassium - POC 3.7 Performed By: #### BGRP, CLRP, HGBRP, GLURP, KRP, HCTRP, NARP, CARP #### [place] [address] HCTRP Collected: 06/19/2017 Status: F Source: [facility] 8:31 AM [facility] REPOSITORY TYPE CODE TESTS RESULT OUT OF REFERENCE UNITS RANGE LAB HCTRP(LOIN 42.0-52.0 % C) Low Hematocrit - POC 35.0 Performed By: #### BGRP, CLRP, HGBRP, GLURP, KRP, HCTRP, NARP, CARP #### [place] [address] NARP Collected: 06/19/2017 Status: F Source: [facility] 8:31 AM [facility] REPOSITORY TYPE CODE TESTS RESULT OUT OF REFERENCE UNITS RANGE LAB NARP(LOINC) 136-145 mEq/L Sodium - POC 136 Performed By: #### BGRP, CLRP, HGBRP, GLURP, KRP, HCTRP, NARP, CARP #### [place] [address] CARP Collected: 06/19/2017 Status: F Source: [facility] 8:31 AM [facility] REPOSITORY TYPE CODE TESTS RESULT OUT OF REFERENCE UNITS RANGE LAB CARP(LOINC) 1.12-1.32 mmol/L Ionized 1.16 Calcium - POC Performed By: #### BGRP, CLRP, HGBRP, GLURP, KRP, HCTRP, NARP, CARP #### [place] [address] BGRP Collected: 06/19/2017 Status: F Source: [facility] 7:43 AM [facility] REPOSITORY TYPE CODE TESTS RESULT OUT OF REFERENCE UNITS RANGE LAB PHRP(LOINC 7.380-7.460 ) pH (poct) - High POC 7.479 LAB PCORP(LOIN 32.0-46.0 mmHg C) PCO2 - POC 37.2 LAB PO2RP(LOIN 74.0-108.0 mmHg C) PO2 - POC High 438.1 LAB HCORP(LOIN 21.0-29.0 mmol/L C) Bicarbonate - POC 27.0 LAB TCORP(LOIN 22.0-30.0 mmol/L C) Total CO2 - POC 28.2 LAB BERP(LOINC mmol/L ) Base Excess - POC 3.5 LAB O2RP(LOINC 92.0-96.0 % ) O2 High Saturation - POC 99.5 Performed By: #### BGRP, CLRP, HGBRP, GLURP, KRP, HCTRP, NARP, CARP #### [place] [address] CLRP Collected: 06/19/2017 Status: F Source: [facility] 7:43 AM [facility] REPOSITORY TYPE CODE TESTS RESULT OUT OF REFERENCE UNITS RANGE LAB CLRP(LOINC) 98-110 mEq/L Chloride - POC 104 Performed By: #### BGRP, CLRP, HGBRP, GLURP, KRP, HCTRP, NARP, CARP #### [place] [address] HGBRP Collected: 06/19/2017 Status: F Source: [facility] 7:43 AM [facility] REPOSITORY TYPE CODE TESTS RESULT OUT OF REFERENCE UNITS RANGE LAB HGBRP(LOIN 13.0-17.5 G/dL C) Low Hemoglobin - POC 11.6 Performed By: #### BGRP, CLRP, HGBRP, GLURP, KRP, HCTRP, NARP, CARP #### [place] [address] GLURP Collected: 06/19/2017 Status: F Source: [facility] 7:43 AM [facility] REPOSITORY TYPE CODE TESTS RESULT OUT OF REFERENCE UNITS RANGE LAB GLURP(LOINC 70-110 mg/dL ) Glucose - POC 101 Performed By: #### BGRP, CLRP, HGBRP, GLURP, KRP, HCTRP, NARP, CARP #### [place] [address] KRP Collected: 06/19/2017 Status: F Source: [facility] 7:43 AM [facility] REPOSITORY TYPE CODE TESTS RESULT OUT OF REFERENCE UNITS RANGE LAB KRP(LOINC) 3.5-5.0 mEq/L Potassium - POC 3.9 Performed By: #### BGRP, CLRP, HGBRP, GLURP, KRP, HCTRP, NARP, CARP #### [place] [address] HCTRP Collected: 06/19/2017 Status: F Source: [facility] 7:43 AM [facility] REPOSITORY TYPE CODE TESTS RESULT OUT OF REFERENCE UNITS RANGE LAB HCTRP(LOIN 42.0-52.0 % C) Low Hematocrit - POC 34.0 Performed By: #### BGRP, CLRP, HGBRP, GLURP, KRP, HCTRP, NARP, CARP #### [place] [address] NARP Collected: 06/19/2017 Status: F Source: [facility] 7:43 AM [facility] REPOSITORY TYPE CODE TESTS RESULT OUT OF REFERENCE UNITS RANGE LAB NARP(LOINC) 136-145 mEq/L Sodium - POC 138 Performed By: #### BGRP, CLRP, HGBRP, GLURP, KRP, HCTRP, NARP, CARP #### [place] [address] CARP Collected: 06/19/2017 Status: F Source: [facility] 7:43 AM [facility] REPOSITORY TYPE CODE TESTS RESULT OUT OF REFERENCE UNITS RANGE LAB CARP(LOINC) 1.12-1.32 mmol/L Ionized 1.15 Calcium - POC Performed By: #### BGRP, CLRP, HGBRP, GLURP, KRP, HCTRP, NARP, CARP #### [place] [address] CLRP Collected: 06/19/2017 Status: F Source: [facility] 7:41 AM [facility] REPOSITORY TYPE CODE TESTS RESULT OUT OF REFERENCE UNITS RANGE LAB CLRP(LOINC) 98-110 mEq/L Chloride - POC 103 Performed By: #### CLRP, GLURP, KRP, NARP, CARP, BGRP, HGBRP, HCTRP #### [place] [address] GLURP Collected: 06/19/2017 Status: F Source: [facility] 7:41 AM [facility] REPOSITORY TYPE CODE TESTS RESULT OUT OF REFERENCE UNITS RANGE LAB GLURP(LOINC 70-110 mg/dL ) Glucose - POC 103 Performed By: #### CLRP, GLURP, KRP, NARP, CARP, BGRP, HGBRP, HCTRP #### [place] [address] KRP Collected: 06/19/2017 Status: F Source: [facility] 7:41 AM [facility] REPOSITORY TYPE CODE TESTS RESULT OUT OF REFERENCE UNITS RANGE LAB KRP(LOINC) 3.5-5.0 mEq/L Potassium - POC 3.9 Performed By: #### CLRP, GLURP, KRP, NARP, CARP, BGRP, HGBRP, HCTRP #### [place] [id number] NARP Collected: 06/19/2017 Status: F Source: [facility] 7:41 AM [facility] REPOSITORY TYPE CODE TESTS RESULT OUT OF REFERENCE UNITS RANGE LAB NARP(LOINC) 136-145 mEq/L Sodium - POC 139 Performed By: #### CLRP, GLURP, KRP, NARP, CARP, BGRP, HGBRP, HCTRP #### [place] [id number] CARP Collected: 06/19/2017 Status: F Source: [facility] 7:41 AM [facility] REPOSITORY TYPE CODE TESTS RESULT OUT OF REFERENCE UNITS RANGE LAB CARP(LOINC) 1.12-1.32 mmol/L Ionized 1.16 Calcium - POC Performed By: #### CLRP, GLURP, KRP, NARP, CARP, BGRP, HGBRP, HCTRP #### [place] [id number] BGRP Collected: 06/19/2017 Status: F Source: [facility] 7:41 AM [facility] REPOSITORY TYPE CODE TESTS RESULT OUT OF REFERENCE UNITS RANGE LAB PHRP(LOINC 7.380-7.460 ) pH (poct) - High POC 7.474 LAB PCORP(LOIN 32.0-46.0 mmHg C) PCO2 - POC 40.2 LAB PO2RP(LOIN 74.0-108.0 mmHg C) PO2 - POC High 494.3 LAB HCORP(LOIN 21.0-29.0 mmol/L C) Bicarbonate - POC 28.9 LAB TCORP(LOIN 22.0-30.0 mmol/L C) Total CO2 - High POC 30.1 LAB BERP(LOINC mmol/L ) Base Excess - POC 4.9 LAB O2RP(LOINC 92.0-96.0 % ) O2 Saturation - POC x Performed By: #### CLRP, GLURP, KRP, NARP, CARP, BGRP, HGBRP, HCTRP #### [place] [id number] HGBRP Collected: 06/19/2017 Status: F Source: [facility] 7:41 AM [facility] REPOSITORY TYPE CODE TESTS RESULT OUT OF REFERENCE UNITS RANGE LAB HGBRP(LOIN 13.0-17.5 G/dL C) Hemoglobin - POC x Performed By: #### CLRP, GLURP, KRP, NARP, CARP, BGRP, HGBRP, HCTRP #### [place] [id number] HCTRP Collected: 06/19/2017 Status: F Source: [facility] 7:41 AM [facility] REPOSITORY TYPE CODE TESTS RESULT OUT OF REFERENCE UNITS RANGE LAB HCTRP(LOIN 42.0-52.0 % C) Hematocrit - POC x Performed By: #### CLRP, GLURP, KRP, NARP, CARP, BGRP, HGBRP, HCTRP #### [place] [address] XR CHEST 2 VIEWS Observed: 06/18/2017 Status: F Source: [facility] 6:30 PM [facility] REPOSITORY ORIGINAL XR CHEST 2 VIEWS CLINICAL STATEMENT: abnormal lung sounds COMPARISON: CT chest dated 06/04/2017. FINDINGS: Heart is not enlarged. Right upper lobe cavity is again noted, correlating with chest CT findings. Air-fluid levels noted in the cavity which may be related to infection. No other new infiltra chuy. No pneumothorax. Right arm PICC is in place. IMPRESSION: Large right upper lobe cavity with mild amount of fluid layering, correlating with chest CT findings. Findings likely representing infection. Interpreted By: Bonifacio Aiken MD Preliminary Report By: Bonifacio Aiken MD Electronically Signed By: Bonifacio Aiken MD Dictated Date: 06/18/2017 10:12:10 PM Prelim Date: 06/18/2017 10:12:10 PM Sign Date: 06/18/2017 10:14:13 PM TABO Collected: 06/18/2017 Status: F Source: [facility] 6:04 PM [facility] REPOSITORY TYPE CODE TESTS RESULT OUT OF RANGE REFERENCE UNITS LAB ABORH(LOINC ) Unknown ABO/Rh A POS Interp Performed By: #### ABORH, ANTIS #### [place] [address] TABS Collected: 06/18/2017 Status: F Source: [facility] 6:04 PM [facility] REPOSITORY TYPE CODE TESTS RESULT OUT OF REFERENCE UNITS RANGE LAB ANST(LOINC ) Antibody Negative ABSC Screen Tango Performed By: #### ABORH, ANTIS #### [address] [address] CBC Collected: 06/17/2017 Status: F Source: [facility] 9:50 AM [facility] REPOSITORY TYPE CODE TESTS RESULT OUT OF REFERENCE UNITS RANGE LAB WBC(LOINC) 4.50-10.80 10 3/mcL High WBC 12.20 LAB RBCCT(LOINC 4.50-6.00 10 6/mcL ) Low RBC 3.93 LAB HGB(LOINC) 13.0-17.5 G/dL Low Hgb 10.9 LAB HCT(LOINC) 40.0-52.0 % Low Hct 32.7 LAB MCV(LOINC) 81.0-100.0 fL MCV 83.2 LAB MCH(LOINC) 27.0-33.0 pg MCH 27.7 LAB MCHC(LOINC) 32.0-36.0 G/dL MCHC 33.2 LAB RDW(LOINC) 11.5-15.5 % RDW 15.4 LAB PLT(LOINC) 150-450 10 3/mcL Platelet 318 LAB MPV(LOINC) 6.4-10.5 fL MPV 8.5 Performed By: #### CBC, ADIFF, ANEU, BMP, MG, GFR #### [address] [address] .AUTO DIFF Collected: 06/17/2017 Status: F Source: [facility] 9:50 AM [facility] REPOSITORY TYPE CODE TESTS RESULT OUT OF REFERENCE UNITS RANGE LAB LAMONT(LOINC) 50.0-75.0 % Neutrophil % 60.0 LAB LYM(LOINC) 20.0-40.0 % Low Lymphocyte % 13.2 LAB MON(LOINC) 2.0-13.0 % Monocyte % 11.2 LAB EO(LOINC) 0.0-6.0 % High Eosinophil % 14.3 LAB BAS(LOINC) 0.0-2.5 % Basophil % 1.3 LAB ABLYM(LOIN 0.90-4.32 10 3/mcL C) Lymphocyte, 1.60 Absolute LAB KALYAN(LOINC 0.09-1.40 10 3/mcL ) Monocyte, 1.40 Absolute LAB AEOS(LOINC 0.00-0.65 10 3/mcL ) High Eosinophil, 1.70 Absolute LAB ABAS(LOINC 0.00-0.27 10 3/mcL ) Basophil, 0.20 Absolute Performed By: #### CBC, ADIFF, ANEU, BMP, MG, GFR #### [address] [address] .NEUABS Collected: 06/17/2017 Status: F Source: [facility] 9:50 AM [facility] REPOSITORY TYPE CODE TESTS RESULT OUT OF REFERENCE UNITS RANGE LAB ANEU(LOINC) 2.25-8.10 10 3/mcL Neutrophil, 7.30 Absolute Performed By: #### CBC, ADIFF, ANEU, BMP, MG, GFR #### [address] [address] BMP Collected: 06/17/2017 Status: F Source: [facility] 9:50 AM [facility] REPOSITORY TYPE CODE TESTS RESULT OUT OF REFERENCE UNITS RANGE LAB GLU(LOINC) 70-110 mg/dL Glucose Level 91 LAB NA(LOINC) 136-145 mEq/L Sodium Level 140 LAB K(LOINC) 3.5-5.0 mEq/L Potassium Level 3.8 LAB CL(LOINC) 98-110 mEq/L Chloride 102 LAB CO2(LOINC) 22-32 mEq/L CO2 31 LAB EBAL(LOINC 4.0-15.0 mEq/L ) Electrolyte Balance 7.0 LAB BUN(LOINC) 8.0-22.0 mg/dL BUN 9.0 LAB CRE(LOINC) 0.60-1.40 mg/dL Creatinine Lvl (s) 0.79 LAB BC(LOINC) 10.0-22.0 ratio BUN/Creatinine 11.4 Ratio LAB CA(LOINC) 8.4-10.1 mg/dL Calcium Lvl 8.8 Performed By: #### CBC, ADIFF, ANEU, BMP, MG, GFR #### [address] [address] MG Collected: 06/17/2017 Status: F Source: [facility] 9:50 AM [facility] REPOSITORY TYPE CODE TESTS RESULT OUT OF REFERENCE UNITS RANGE LAB MG(LOINC) 1.6-2.4 mg/dL Magnesium Lvl 2.0 Performed By: #### CBC, ADIFF, ANEU, BMP, MG, GFR #### [address] [address] .GFR Collected: 06/17/2017 Status: F Source: [facility] [employer] 9:50 AM [facility] REPOSITORY TYPE CODE TESTS RESULT OUT OF REFERENCE UNITS RANGE LAB GFRAA(LOINC ml/min/1.73 ) sqm GFR >60 [place] Result Comment: GFR Population mean for , Non- Americans Ages 20-29 = 116 mL/min/1.73 sq.m. Ages 30-39 = 107 mL/min/1.73 sq.m. Ages 40-49 = 99 mL/min/1.73 sq.m. Ages 50-59 = 93 mL/min/1.73 sq.m. Ages 60-69 = 85 mL/min/1.73 sq.m. Ages 70+ = 75 mL/min/1.73 sq.m. Chronic Kidney Disease: Less than 60 mL/min/1.73 square meters End Stage Renal Disease: Less than 15 mL/min/1.73 square meters LAB GFRNO(LOINC) ml/min/1.73sqm GFR Non- >60 Result Comment: GFR Population mean for , Non- Americans Ages 20-29 = 116 mL/min/1.73 sq.m. Ages 30-39 = 107 mL/min/1.73 sq.m. Ages 40-49 = 99 mL/min/1.73 sq.m. Ages 50-59 = 93 mL/min/1.73 sq.m. Ages 60-69 = 85 mL/min/1.73 sq.m. Ages 70+ = 75 mL/min/1.73 sq.m. Chronic Kidney Disease: Less than 60 mL/min/1.73 square meters End Stage Renal Disease: Less than 15 mL/min/1.73 square meters Performed By: #### CBC, ADIFF, ANEU, BMP, MG, GFR #### [address] [address] CBC Collected: 06/16/2017 Status: F Source: [facility] 3:55 AM [facility] REPOSITORY TYPE CODE TESTS RESULT OUT OF REFERENCE UNITS RANGE LAB WBC(LOINC) 4.50-10.80 10 3/mcL WBC 10.20 LAB RBCCT(LOINC 4.50-6.00 10 6/mcL ) Low RBC 3.74 LAB HGB(LOINC) 13.0-17.5 G/dL Low Hgb 10.6 LAB HCT(LOINC) 40.0-52.0 % Low Hct 30.9 LAB MCV(LOINC) 81.0-100.0 fL MCV 82.5 LAB MCH(LOINC) 27.0-33.0 pg MCH 28.3 LAB MCHC(LOINC) 32.0-36.0 G/dL MCHC 34.3 LAB RDW(LOINC) 11.5-15.5 % RDW 15.4 LAB PLT(LOINC) 150-450 10 3/mcL Platelet 341 LAB MPV(LOINC) 6.4-10.5 fL MPV 8.1 Performed By: #### CBC, ADIFF, ANEU, MG, GFR, BMP #### [address] [address] .AUTO DIFF Collected: 06/16/2017 Status: F Source: [facility] 3:55 AM [facility] REPOSITORY TYPE CODE TESTS RESULT OUT OF REFERENCE UNITS RANGE LAB LAMONT(LOINC) 50.0-75.0 % Neutrophil % 55.7 LAB LYM(LOINC) 20.0-40.0 % Lymphocyte % 21.7 LAB MON(LOINC) 2.0-13.0 % Monocyte % 10.1 LAB EO(LOINC) 0.0-6.0 % High Eosinophil % 11.3 LAB BAS(LOINC) 0.0-2.5 % Basophil % 1.2 LAB ABLYM(LOIN 0.90-4.32 10 3/mcL C) Lymphocyte, 2.20 Absolute LAB KALYAN(LOINC 0.09-1.40 10 3/mcL ) Monocyte, 1.00 Absolute LAB AEOS(LOINC 0.00-0.65 10 3/mcL ) High Eosinophil, 1.20 Absolute LAB ABAS(LOINC 0.00-0.27 10 3/mcL ) Basophil, 0.10 Absolute Performed By: #### CBC, ADIFF, ANEU, MG, GFR, BMP #### [address] [address] .NEUABS Collected: 06/16/2017 Status: F Source: [facility] 3:55 AM [facility] REPOSITORY TYPE CODE TESTS RESULT OUT OF REFERENCE UNITS RANGE LAB ANEU(LOINC) 2.25-8.10 10 3/mcL Neutrophil, 5.70 Absolute Performed By: #### CBC, ADIFF, ANEU, MG, GFR, BMP #### [address] [address] MG Collected: 06/16/2017 Status: F Source: [facility] 3:55 AM [facility] REPOSITORY TYPE CODE TESTS RESULT OUT OF REFERENCE UNITS RANGE LAB MG(LOINC) 1.6-2.4 mg/dL Magnesium Lvl 2.1 Performed By: #### CBC, ADIFF, ANEU, MG, GFR, BMP #### [address] [address] .GFR Collected: 06/16/2017 Status: F Source: [facility] 3:55 AM [facility] REPOSITORY TYPE CODE TESTS RESULT OUT OF REFERENCE UNITS RANGE LAB GFRAA(LOINC ml/min/1.73 ) sqm GFR >60 [place] Result Comment: GFR Population mean for , Non- Americans Ages 20-29 = 116 mL/min/1.73 sq.m. Ages 30-39 = 107 mL/min/1.73 sq.m. Ages 40-49 = 99 mL/min/1.73 sq.m. Ages 50-59 = 93 mL/min/1.73 sq.m. Ages 60-69 = 85 mL/min/1.73 sq.m. Ages 70+ = 75 mL/min/1.73 sq.m. Chronic Kidney Disease: Less than 60 mL/min/1.73 square meters End Stage Renal Disease: Less than 15 mL/min/1.73 square meters LAB GFRNO(LOINC) ml/min/1.73sqm GFR Non- >60 Result Comment: GFR Population mean for , Non- Americans Ages 20-29 = 116 mL/min/1.73 sq.m. Ages 30-39 = 107 mL/min/1.73 sq.m. Ages 40-49 = 99 mL/min/1.73 sq.m. Ages 50-59 = 93 mL/min/1.73 sq.m. Ages 60-69 = 85 mL/min/1.73 sq.m. Ages 70+ = 75 mL/min/1.73 sq.m. Chronic Kidney Disease: Less than 60 mL/min/1.73 square meters End Stage Renal Disease: Less than 15 mL/min/1.73 square meters Performed By: #### CBC, ADIFF, ANEU, MG, GFR, BMP #### [address] [address] BMP Collected: 06/16/2017 Status: F Source: [facility] 3:55 AM [facility] REPOSITORY TYPE CODE TESTS RESULT OUT OF REFERENCE UNITS RANGE LAB GLU(LOINC) 70-110 mg/dL Glucose Level 82 LAB NA(LOINC) 136-145 mEq/L Sodium Level 142 LAB K(LOINC) 3.5-5.0 mEq/L Potassium Level 3.8 LAB CL(LOINC) 98-110 mEq/L Chloride 105 LAB CO2(LOINC) 22-32 mEq/L CO2 31 LAB EBAL(LOINC 4.0-15.0 mEq/L ) Electrolyte Balance 6.0 LAB BUN(LOINC) 8.0-22.0 mg/dL BUN 10.0 LAB CRE(LOINC) 0.60-1.40 mg/dL Creatinine Lvl (s) 0.69 LAB BC(LOINC) 10.0-22.0 ratio BUN/Creatinine 14.5 Ratio LAB CA(LOINC) 8.4-10.1 mg/dL Low Calcium Lvl 8.1 Performed By: #### CBC, ADIFF, ANEU, MG, GFR, BMP #### [address] [address] CBC Collected: 06/15/2017 Status: F Source: [facility] 11:09 AM [facility] REPOSITORY TYPE CODE TESTS RESULT OUT OF REFERENCE UNITS RANGE LAB WBC(LOINC) 4.50-10.80 10 3/mcL WBC 9.90 LAB RBCCT(LOINC 4.50-6.00 10 6/mcL ) Low RBC 4.10 LAB HGB(LOINC) 13.0-17.5 G/dL Low Hgb 11.3 LAB HCT(LOINC) 40.0-52.0 % Low Hct 34.2 LAB MCV(LOINC) 81.0-100.0 fL MCV 83.3 LAB MCH(LOINC) 27.0-33.0 pg MCH 27.5 LAB MCHC(LOINC) 32.0-36.0 G/dL MCHC 33.1 LAB RDW(LOINC) 11.5-15.5 % RDW 15.2 LAB PLT(LOINC) 150-450 10 3/mcL Platelet 344 LAB MPV(LOINC) 6.4-10.5 fL MPV 7.7 Performed By: #### CBC, ADIFF, ANEU, BMP, MG, GFR #### [place] [address] .AUTO DIFF Collected: 06/15/2017 Status: F Source: [facility] 11:09 AM [facility] REPOSITORY TYPE CODE TESTS RESULT OUT OF REFERENCE UNITS RANGE LAB LAMONT(LOINC) 50.0-75.0 % Neutrophil % 71.9 LAB LYM(LOINC) 20.0-40.0 % Low Lymphocyte % 10.4 LAB MON(LOINC) 2.0-13.0 % Monocyte % 6.7 LAB EO(LOINC) 0.0-6.0 % High Eosinophil % 9.7 LAB BAS(LOINC) 0.0-2.5 % Basophil % 1.3 LAB ABLYM(LOIN 0.90-4.32 10 3/mcL C) Lymphocyte, 1.00 Absolute LAB KALYAN(LOINC 0.09-1.40 10 3/mcL ) Monocyte, 0.70 Absolute LAB AEOS(LOINC 0.00-0.65 10 3/mcL ) High Eosinophil, 1.00 Absolute LAB ABAS(LOINC 0.00-0.27 10 3/mcL ) Basophil, 0.10 Absolute Performed By: #### CBC, ADIFF, ANEU, BMP, MG, GFR #### [place] [address] .NEUABS Collected: 06/15/2017 Status: F Source: [facility] 11:09 AM [facility] REPOSITORY TYPE CODE TESTS RESULT OUT OF REFERENCE UNITS RANGE LAB ANEU(LOINC) 2.25-8.10 10 3/mcL Neutrophil, 7.10 Absolute Performed By: #### CBC, ADIFF, ANEU, BMP, MG, GFR #### [place] [address] BMP Collected: 06/15/2017 Status: F Source: [facility] 11:09 AM [facility] REPOSITORY TYPE CODE TESTS RESULT OUT OF REFERENCE UNITS RANGE LAB GLU(LOINC) 70-110 mg/dL Glucose High Level 111 LAB NA(LOINC) 136-145 mEq/L Sodium Level 139 LAB K(LOINC) 3.5-5.0 mEq/L Potassium Level 3.9 LAB CL(LOINC) 98-110 mEq/L Chloride 102 LAB CO2(LOINC) 22-32 mEq/L CO2 31 LAB EBAL(LOINC 4.0-15.0 mEq/L ) Electrolyte Balance 6.0 LAB BUN(LOINC) 8.0-22.0 mg/dL BUN 10.0 LAB CRE(LOINC) 0.60-1.40 mg/dL Creatinine Lvl (s) 0.70 LAB BC(LOINC) 10.0-22.0 ratio BUN/Creatinine 14.3 Ratio LAB CA(LOINC) 8.4-10.1 mg/dL Calcium Lvl 8.5 Performed By: #### CBC, ADIFF, ANEU, BMP, MG, GFR #### [place] [address] MG Collected: 06/15/2017 Status: F Source: [facility] 11:09 [facility] REPOSITORY TYPE CODE TESTS RESULT OUT OF REFERENCE UNITS RANGE LAB MG(LOINC) 1.6-2.4 mg/dL Magnesium Lvl 2.0 Performed By: #### CBC, ADIFF, ANEU, BMP, MG, GFR #### [place] [address] .GFR Collected: 06/15/2017 Status: F Source: [facility] 11:09 AM [facility] REPOSITORY TYPE CODE TESTS RESULT OUT OF REFERENCE UNITS RANGE LAB GFRAA(LOINC ml/min/1.73 ) sqm GFR >60 [place] Result Comment: GFR Population mean for , Non- Americans Ages 20-29 = 116 mL/min/1.73 sq.m. Ages 30-39 = 107 mL/min/1.73 sq.m. Ages 40-49 = 99 mL/min/1.73 sq.m. Ages 50-59 = 93 mL/min/1.73 sq.m. Ages 60-69 = 85 mL/min/1.73 sq.m. Ages 70+ = 75 mL/min/1.73 sq.m. Chronic Kidney Disease: Less than 60 mL/min/1.73 square meters End Stage Renal Disease: Less than 15 mL/min/1.73 square meters LAB GFRNO(LOINC) ml/min/1.73sqm GFR Non- >60 Result Comment: GFR Population mean for , Non- Americans Ages 20-29 = 116 mL/min/1.73 sq.m. Ages 30-39 = 107 mL/min/1.73 sq.m. Ages 40-49 = 99 mL/min/1.73 sq.m. Ages 50-59 = 93 mL/min/1.73 sq.m. Ages 60-69 = 85 mL/min/1.73 sq.m. Ages 70+ = 75 mL/min/1.73 sq.m. Chronic Kidney Disease: Less than 60 mL/min/1.73 square meters End Stage Renal Disease: Less than 15 mL/min/1.73 square meters Performed By: #### CBC, ADIFF, ANEU, BMP, MG, GFR #### [place] [address] IR PICC LINE PLACEMENT Observed: 06/14/2017 Status: F Source: [facility] 9:00 AM [facility] REPOS[facility] ORIGINAL PLACEMENT OF PERIPHERALLY INSERTED CENTRAL CATHETER WITH ULTRASOUND AND FLUOROSCOPIC GUIDANCE. June 14 2017 Clinical Statement: Patient requires long-term stable IV access for IV antibiotic therapy. PROCEDURE: The patient was placed in the supine position. Theright upper arm was prepped and draped using maximal barrier sterile technique (cap and mask and sterile gown and sterile gloves and a large sterile sheet and hand hygiene and 2% Chlorhexidine). Using sterile ultrasound technique (non-opened sterile gel and sterile probe cover) , the basilic vein was identified and the area was locally anest hetized with 1 ml of 2% Lidocaine. Using ultrasound guidance, a micropuncture needle was used to access the basilic vein and a guide wire inserted. A peel-away sheath was advanced into the vein. A 5.0-F rench dual lumen CT PICC was trimmed to 42 cm and advanced to the SVC through the sheath under fluoroscopic guidance. After successful placement, the catheter was sutured to the skin with 4-0 nylon. The catheter was flushed with heparinized saline. A sterile dry dressing was applied. The patient tolerated the procedure well. The final catheter position was documented with fluoroscopic image. An ultras ound image was recorded to document the venous access site and the needle within the patent vessel lumen. 0.2 minutes of fluoro time was used. Total number of images 17. Total dose was 1.27 mGy of air kerma. IMPRESSION: Successful placement of a 5.[address] PICC from the right upper arm basilic vein into the SVC. The procedure was performed by Marie Laguna, Physician Neurophysiological Technician with direct supervision by CRUZITO Pace/NAFISA. I concur with the contents of the report. Interpreted By: Annie Edward MD Preliminary Report By: Maire Laguna PA-C Electronically Signed By: Annie Edward MD Dictated Date: 06/14/2017 2:57:03 PM Prelim Date: 06/14/2017 3:01:07 PM Sign Date: 06/14/2017 5:43:32 PM CBC Collected: 06/14/2017 Status: F Source: [facility] 7:28 AM [facility] REPOSITORY TYPE CODE TESTS RESULT OUT OF REFERENCE UNITS RANGE LAB WBC(LOINC) 4.50-10.80 10 3/mcL High WBC 11.40 LAB RBCCT(LOINC 4.50-6.00 10 6/mcL ) Low RBC 4.01 LAB HGB(LOINC) 13.0-17.5 G/dL Low Hgb 11.1 LAB HCT(LOINC) 40.0-52.0 % Low Hct 33.3 LAB MCV(LOINC) 81.0-100.0 fL MCV 83.1 LAB MCH(LOINC) 27.0-33.0 pg MCH 27.7 LAB MCHC(LOINC) 32.0-36.0 G/dL MCHC 33.4 LAB RDW(LOINC) 11.5-15.5 % RDW 15.3 LAB PLT(LOINC) 150-450 10 3/mcL Platelet 378 LAB MPV(LOINC) 6.4-10.5 fL MPV 8.0 Performed By: #### CBC, ADIFF, ANEU, MG, BMP, GFR #### [place] [address] .AUTO DIFF Collected: 06/14/2017 Status: F Source: [facility] 7:28 AM [facility] REPOSITORY TYPE CODE TESTS RESULT OUT OF REFERENCE UNITS RANGE LAB LAMONT(LOINC) 50.0-75.0 % Neutrophil % 50.9 LAB LYM(LOINC) 20.0-40.0 % Lymphocyte % 28.2 LAB MON(LOINC) 2.0-13.0 % Monocyte % 10.4 LAB EO(LOINC) 0.0-6.0 % High Eosinophil % 9.4 LAB BAS(LOINC) 0.0-2.5 % Basophil % 1.1 LAB ABLYM(LOIN 0.90-4.32 10 3/mcL C) Lymphocyte, 3.20 Absolute LAB KALYAN(LOINC 0.09-1.40 10 3/mcL ) Monocyte, 1.20 Absolute LAB AEOS(LOINC 0.00-0.65 10 3/mcL ) High Eosinophil, 1.10 Absolute LAB ABAS(LOINC 0.00-0.27 10 3/mcL ) Basophil, 0.10 Absolute Performed By: #### CBC, ADIFF, ANEU, MG, BMP, GFR #### [place] [address] .NEUABS Collected: 06/14/2017 Status: F Source: [facility] 7:28 AM [facility] REPOSITORY TYPE CODE TESTS RESULT OUT OF REFERENCE UNITS RANGE LAB ANEU(LOINC) 2.25-8.10 10 3/mcL Neutrophil, 5.80 Absolute Performed By: #### CBC, ADIFF, ANEU, MG, BMP, GFR #### [place] [address] MG Collected: 06/14/2017 Status: F Source: [facility] 7:28 AM [facility] REPOSITORY TYPE CODE TESTS RESULT OUT OF REFERENCE UNITS RANGE LAB MG(LOINC) 1.6-2.4 mg/dL Magnesium Lvl 2.2 Performed By: #### CBC, ADIFF, ANEU, MG, BMP, GFR #### [place] [address] BMP Collected: 06/14/2017 Status: F Source: [facility] 7:28 AM [facility] REPOSITORY TYPE CODE TESTS RESULT OUT OF REFERENCE UNITS RANGE LAB GLU(LOINC) 70-110 mg/dL Glucose Level 78 LAB NA(LOINC) 136-145 mEq/L Sodium Level 140 LAB K(LOINC) 3.5-5.0 mEq/L Potassium Level 4.4 LAB CL(LOINC) 98-110 mEq/L Chloride 102 LAB CO2(LOINC) 22-32 mEq/L CO2 30 LAB EBAL(LOINC 4.0-15.0 mEq/L ) Electrolyte Balance 8.0 LAB BUN(LOINC) 8.0-22.0 mg/dL BUN 11.0 LAB CRE(LOINC) 0.60-1.40 mg/dL Creatinine Lvl (s) 0.75 LAB BC(LOINC) 10.0-22.0 ratio BUN/Creatinine 14.7 Ratio LAB CA(LOINC) 8.4-10.1 mg/dL Calcium Lvl 9.1 Performed By: #### CBC, ADIFF, ANEU, MG, BMP, GFR #### [place] [address] .GFR Collected: 06/14/2017 Status: F Source: [facility] 7:28 AM [facility] RE[facility] TYPE CODE TESTS RESULT OUT OF REFERENCE UNITS RANGE LAB GFRAA(LOINC ml/min/1.73 ) sqm GFR >60 [place] Result Comment: GFR Population mean for , Non- Americans Ages 20-29 = 116 mL/min/1.73 sq.m. Ages 30-39 = 107 mL/min/1.73 sq.m. Ages 40-49 = 99 mL/min/1.73 sq.m. Ages 50-59 = 93 mL/min/1.73 sq.m. Ages 60-69 = 85 mL/min/1.73 sq.m. Ages 70+ = 75 mL/min/1.73 sq.m. Chronic Kidney Disease: Less than 60 mL/min/1.73 square meters End Stage Renal Disease: Less than 15 mL/min/1.73 square meters LAB GFRNO(LOINC) ml/min/1.73sqm GFR Non- >60 Result Comment: GFR Population mean for , Non- Americans Ages 20-29 = 116 mL/min/1.73 sq.m. Ages 30-39 = 107 mL/min/1.73 sq.m. Ages 40-49 = 99 mL/min/1.73 sq.m. Ages 50-59 = 93 mL/min/1.73 sq.m. Ages 60-69 = 85 mL/min/1.73 sq.m. Ages 70+ = 75 mL/min/1.73 sq.m. Chronic Kidney Disease: Less than 60 mL/min/1.73 square meters End Stage Renal Disease: Less than 15 mL/min/1.73 square meters Performed By: #### CBC, ADIFF, ANEU, MG, BMP, GFR #### [facility] [address] [place] [id number] MG Collected: 06/13/2017 Status: F Source: [facility] 10:07 AM [facility] REPOSITORY TYPE CODE TESTS RESULT OUT OF REFERENCE UNITS RANGE LAB MG(LOINC) 1.6-2.4 mg/dL Magnesium Lvl 2.1 Performed By: #### MG #### [facility] [address] [place] [id number] EMERGENCY DEPARTMENT Observed: 06/13/2017 Status: F Source: [facility] SUMMARY 9:05 AM [facility] EMERGENCY DEPARTMENT SUMMARY NAME NUMBER SEX AGE ADMIT DISC TYPE MED.RECORD# FRANKLYN Mclain [id number] M [id number] 06/04/17 06/04/17 E.REdwin [id number] ROOM:ER- DATE OF :1975 PHYSICIAN NO.:[id number] PHYSICIAN NAME:CHRISTINA MARKS DO PHYSICIAN:NO DOCTOR ON ADMISSION SHEET HISTORY OF PRESENT ILLNESS: The patient is a 41-year-old male who present for hemoptysis. The patient has been seen in our ED two times prior. The patient has been told that he had an underlying pneumonia. He has been on both azithromycin and Augmentin with no improvement. The patient was supposed to have an outpatient bronchoscopy, however, it has been cancelled on two separate occasions. The patient came to the ED today as he has had continued shortness of breath and at this time has had a cough and noticed bleeding in the productive cough. The patient states that he has also had significant weight loss over the last 30 days. He is unsure as to the total amount. The patient does have rheumatoid arthritis and is on some RA medication. The patient at this time denies any chest pain or other symptoms. PAST MEDICAL HISTORY: Rheumatoid arthritis. PAST SURGICAL HISTORY: Negative. MEDICATIONS: RA medications, see nurses notes. ALLERGIES: Methotrexate. SOCIAL HISTORY: Smokes daily. REVIEW OF SYSTEMS: Positive for hemoptysis. The remainder of the review of systems is unremarkable. PHYSICAL EXAMINATION: VITAL SIGNS: Temperature 98.1, pulse 105, respirations 20, blood pressure 137/93, O2 saturation 95% on room air. CONSTITUTIONAL: Alert and oriented. Ill appearing. The patient looks cachectic. CARDIAC: Tachycardiac, regular rhythm. Negative for murmurs, rubs or gallops. Positive S1, S2. PULMONARY: Clear to auscultation, however the patient is not taking deep breaths. He sounds tight. ABDOMEN: Soft, nontender and nondistended. Normal bowel sounds in all 4 quadrants. Negative for Deras's or McBurney's. Negative for rigidity, guarding or distension. MSK: Normal radial and DP pulses bilaterally. Negative for lower extremity edema, ulcerations or skin breakdown. Negative for splinter hemorrhages or Osler nodes noted on the patient's hands or feet. DIAGNOSTIC DATA: WBC 14.4, hemoglobin 10.5, hematocrit 31.5, platelets 440,000. Lactate 4.2, troponin 0.01. CMP is normal. Blood cultures are pending. CT shows a 10.4 cm large cavitary lesion in the right upper lung with air fluid level, multiple additional cavitary foci noted in the bilateral upper lungs concerning for septic emboli and intrapulmonary abscess. EMERGENCY DEPARTMENT COURSE AND TREATMENT: The patient has already been on azithromycin and Augmentin. The patient's lesion has not improved. The patient was supposed to have an outpatient bronchoscopy and has not done so. At this time the patient presented hemoptysis. The patient was tachycardiac originally at 130 and has received IV fluids. The patient did have lab work, which did also include lactate and blood cultures. At this time the patient is septic with a white count of 14.4, tachycardiac, with a right upper cavitary lesion. At this time, the patient has been started on broad spectrum antibiotics, vancomycin and Zosyn. He has received appropriate IV fluids. Blood cultures were obtained. At this time, there is concern for possible tuberculosis. The patient is on immunosuppressant medications due to his RA. The patient denies any IV drug use. He states he has had no recent incarcerations and denies any TB exposure. The patient did not present with a new murmur and I did not appreciate any Osler's nodes or splinter hemorrhages. At this time, we are concerned for possible TB, possible endocarditis with septic emboli, HIV. We have elected to transfer the patient to a higher level of care, [place]. At this time, they have agreed for transfer. The patient will be transferred to their location with airborne isolation in place. This was discussed with the patient who is agreeable and amenable and was admitted to the hospital. DIAGNOSIS: 1. Sepsis secondary to cavitary lungs lesions. 2. Possible tuberculosis exposure. 3. Leukocytosis. D: Christina Marks DO TD: 15:25 JOB #: [id number] Electronically signed by: CHRISTINA MARKS DO SIGNDATE Transcribed by: serena 06/05/2017 00:55 CBC Collected: 06/13/2017 Status: F Source: [facility] 7:54 AM [facility] REPOSITORY TYPE CODE TESTS RESULT OUT OF REFERENCE UNITS RANGE LAB WBC(LOINC) 4.50-10.80 10 3/mcL High WBC 10.90 LAB RBCCT(LOINC 4.50-6.00 10 6/mcL ) Low RBC 4.03 LAB HGB(LOINC) 13.0-17.5 G/dL Low Hgb 11.2 LAB HCT(LOINC) 40.0-52.0 % Low Hct 33.3 LAB MCV(LOINC) 81.0-100.0 fL MCV 82.7 LAB MCH(LOINC) 27.0-33.0 pg MCH 27.8 LAB MCHC(LOINC) 32.0-36.0 G/dL MCHC 33.6 LAB RDW(LOINC) 11.5-15.5 % RDW 14.9 LAB PLT(LOINC) 150-450 10 3/mcL Platelet 368 LAB MPV(LOINC) 6.4-10.5 fL MPV 7.8 Performed By: #### CBC, ADIFF, ANEU, BMP, GFR #### [place] [address] .AUTO DIFF Collected: 06/13/2017 Status: F Source: [facility] 7:54 AM [facility] REPOSITORY TYPE CODE TESTS RESULT OUT OF REFERENCE UNITS RANGE LAB LAMONT(LOINC) 50.0-75.0 % Neutrophil % 59.4 LAB LYM(LOINC) 20.0-40.0 % Lymphocyte % 22.1 LAB MON(LOINC) 2.0-13.0 % Monocyte % 9.1 LAB EO(LOINC) 0.0-6.0 % High Eosinophil % 8.5 LAB BAS(LOINC) 0.0-2.5 % Basophil % 0.9 LAB ABLYM(LOIN 0.90-4.32 10 3/mcL C) Lymphocyte, 2.40 Absolute LAB KALYAN(LOINC 0.09-1.40 10 3/mcL ) Monocyte, 1.00 Absolute LAB AEOS(LOINC 0.00-0.65 10 3/mcL ) High Eosinophil, 0.90 Absolute LAB ABAS(LOINC 0.00-0.27 10 3/mcL ) Basophil, 0.10 Absolute Performed By: #### CBC, ADIFF, ANEU, BMP, GFR #### [place] [address] .NEUABS Collected: 06/13/2017 Status: F Source: [facility] 7:54 AM [facility] REPOSITORY TYPE CODE TESTS RESULT OUT OF REFERENCE UNITS RANGE LAB ANEU(LOINC) 2.25-8.10 10 3/mcL Neutrophil, 6.50 Absolute Performed By: #### CBC, ADIFF, ANEU, BMP, GFR #### [place] [address] BMP Collected: 06/13/2017 Status: F Source: [facility] 7:54 AM [facility] REPOSITORY TYPE CODE TESTS RESULT OUT OF REFERENCE UNITS RANGE LAB GLU(LOINC) 70-110 mg/dL Glucose Level 85 LAB NA(LOINC) 136-145 mEq/L Sodium Level 139 LAB K(LOINC) 3.5-5.0 mEq/L Potassium Level 4.1 LAB CL(LOINC) 98-110 mEq/L Chloride 105 LAB CO2(LOINC) 22-32 mEq/L CO2 27 LAB EBAL(LOINC 4.0-15.0 mEq/L ) Electrolyte Balance 7.0 LAB BUN(LOINC) 8.0-22.0 mg/dL BUN 10.0 LAB CRE(LOINC) 0.60-1.40 mg/dL Creatinine Lvl (s) 0.68 LAB BC(LOINC) 10.0-22.0 ratio BUN/Creatinine 14.7 Ratio LAB CA(LOINC) 8.4-10.1 mg/dL Calcium Lvl 8.6 Performed By: #### CBC, ADIFF, ANEU, BMP, GFR #### [address] [address] .GFR Collected: 06/13/2017 Status: F Source: [place] [facility] 7:54 AM [facility] REPOSITORY TYPE CODE TESTS RESULT OUT OF REFERENCE UNITS RANGE LAB GFRAA(LOINC ml/min/1.73 ) sqm GFR >60 [place] Result Comment: GFR Population mean for , Non- Americans Ages 20-29 = 116 mL/min/1.73 sq.m. Ages 30-39 = 107 mL/min/1.73 sq.m. Ages 40-49 = 99 mL/min/1.73 sq.m. Ages 50-59 = 93 mL/min/1.73 sq.m. Ages 60-69 = 85 mL/min/1.73 sq.m. Ages 70+ = 75 mL/min/1.73 sq.m. Chronic Kidney Disease: Less than 60 mL/min/1.73 square meters End Stage Renal Disease: Less than 15 mL/min/1.73 square meters LAB GFRNO(LOINC) ml/min/1.73sqm GFR Non- >60 Result Comment: GFR Population mean for , Non- Americans Ages 20-29 = 116 mL/min/1.73 sq.m. Ages 30-39 = 107 mL/min/1.73 sq.m. Ages 40-49 = 99 mL/min/1.73 sq.m. Ages 50-59 = 93 mL/min/1.73 sq.m. Ages 60-69 = 85 mL/min/1.73 sq.m. Ages 70+ = 75 mL/min/1.73 sq.m. Chronic Kidney Disease: Less than 60 mL/min/1.73 square meters End Stage Renal Disease: Less than 15 mL/min/1.73 square meters Performed By: #### CBC, ADIFF, ANEU, BMP, GFR #### [address] [address] CBC Collected: 06/12/2017 Status: F Source: [facility] 6:51 AM [facility] REPOSITORY TYPE CODE TESTS RESULT OUT OF REFERENCE UNITS RANGE LAB WBC(LOINC) 4.50-10.80 10 3/mcL WBC 8.70 LAB RBCCT(LOINC 4.50-6.00 10 6/mcL ) Low RBC 3.90 LAB HGB(LOINC) 13.0-17.5 G/dL Low Hgb 10.7 LAB HCT(LOINC) 40.0-52.0 % Low Hct 32.4 LAB MCV(LOINC) 81.0-100.0 fL MCV 83.1 LAB MCH(LOINC) 27.0-33.0 pg MCH 27.5 LAB MCHC(LOINC) 32.0-36.0 G/dL MCHC 33.2 LAB RDW(LOINC) 11.5-15.5 % RDW 15.0 LAB PLT(LOINC) 150-450 10 3/mcL Platelet 347 LAB MPV(LOINC) 6.4-10.5 fL MPV 7.9 Performed By: #### CBC, ADIFF, ANEU, BMP, GFR #### [address] [address] .AUTO DIFF Collected: 06/12/2017 Status: F Source: [facility] 6:51 AM [facility] REPOSITORY TYPE CODE TESTS RESULT OUT OF REFERENCE UNITS RANGE LAB LAMONT(LOINC) 50.0-75.0 % Neutrophil % 53.7 LAB LYM(LOINC) 20.0-40.0 % Lymphocyte % 23.6 LAB MON(LOINC) 2.0-13.0 % Monocyte % 9.5 LAB EO(LOINC) 0.0-6.0 % High Eosinophil % 12.2 LAB BAS(LOINC) 0.0-2.5 % Basophil % 1.0 LAB ABLYM(LOIN 0.90-4.32 10 3/mcL C) Lymphocyte, 2.00 Absolute LAB KALYAN(LOINC 0.09-1.40 10 3/mcL ) Monocyte, 0.80 Absolute LAB AEOS(LOINC 0.00-0.65 10 3/mcL ) High Eosinophil, 1.10 Absolute LAB ABAS(LOINC 0.00-0.27 10 3/mcL ) Basophil, 0.10 Absolute Performed By: #### CBC, ADIFF, ANEU, BMP, GFR #### [address] [address] .NEUABS Collected: 06/12/2017 Status: F Source: [facility] 6:51 AM [facility] REPOSITORY TYPE CODE TESTS RESULT OUT OF REFERENCE UNITS RANGE LAB ANEU(LOINC) 2.25-8.10 10 3/mcL Neutrophil, 4.70 Absolute Performed By: #### GT, NORA, ANEU, BMP, GFR #### [address] [address] BMP Collected: 06/12/2017 Status: F Source: [facility] 6:51 AM [facility] REPOSITORY TYPE CODE TESTS RESULT OUT OF REFERENCE UNITS RANGE LAB GLU(LOINC) 70-110 mg/dL Glucose High Level 117 LAB NA(LOINC) 136-145 mEq/L Sodium Level 140 LAB K(LOINC) 3.5-5.0 mEq/L Potassium Level 3.7 LAB CL(LOINC) 98-110 mEq/L Chloride 105 LAB CO2(LOINC) 22-32 mEq/L CO2 29 LAB EBAL(LOINC 4.0-15.0 mEq/L ) Electrolyte Balance 6.0 LAB BUN(LOINC) 8.0-22.0 mg/dL BUN 11.0 LAB CRE(LOINC) 0.60-1.40 mg/dL Creatinine Lvl (s) 0.66 LAB BC(LOINC) 10.0-22.0 ratio BUN/Creatinine 16.7 Ratio LAB CA(LOINC) 8.4-10.1 mg/dL Calcium Lvl 8.4 Performed By: #### GT, NORA, ANEU, BMP, GFR #### [address] [address] .GFR Collected: 06/12/2017 Status: F Source: [facility] 6:51 AM [facility] REPOSITORY TYPE CODE TESTS RESULT OUT OF REFERENCE UNITS RANGE LAB GFRAA(LOINC ml/min/1.73 ) sqm GFR >60 [place] Result Comment: GFR Population mean for , Non- Americans Ages 20-29 = 116 mL/min/1.73 sq.m. Ages 30-39 = 107 mL/min/1.73 sq.m. Ages 40-49 = 99 mL/min/1.73 sq.m. Ages 50-59 = 93 mL/min/1.73 sq.m. Ages 60-69 = 85 mL/min/1.73 sq.m. Ages 70+ = 75 mL/min/1.73 sq.m. Chronic Kidney Disease: Less than 60 mL/min/1.73 square meters End Stage Renal Disease: Less than 15 mL/min/1.73 square meters LAB GFRNO(LOINC) ml/min/1.73sqm GFR Non- >60 Result Comment: GFR Population mean for , Non- Americans Ages 20-29 = 116 mL/min/1.73 sq.m. Ages 30-39 = 107 mL/min/1.73 sq.m. Ages 40-49 = 99 mL/min/1.73 sq.m. Ages 50-59 = 93 mL/min/1.73 sq.m. Ages 60-69 = 85 mL/min/1.73 sq.m. Ages 70+ = 75 mL/min/1.73 sq.m. Chronic Kidney Disease: Less than 60 mL/min/1.73 square meters End Stage Renal Disease: Less than 15 mL/min/1.73 square meters Performed By: #### CBC, ADIFF, ANEU, BMP, GFR #### [address] [address] VANCT Collected: 06/11/2017 Status: F Source: [facility] 9:30 AM [facility] REPOSITORY Order Comment: Please draw prior to vancomycin administration. TYPE CODE TESTS RESULT OUT OF REFERENCE UNITS RANGE LAB LD019(LOIN C) LDose Vancomycin:(trou See eMAR gh) LAB 4092-3 5.0-20.0 mcg/mL VANCOMYCIN 16.8 Performed By: #### VANCT #### [address] [address] CBC Collected: 06/11/2017 Status: F Source: [facility] 7:07 AM [facility] REPOSITORY TYPE CODE TESTS RESULT OUT OF REFERENCE UNITS RANGE LAB WBC(LOINC) 4.50-10.80 10 3/mcL WBC 7.70 LAB RBCCT(LOINC 4.50-6.00 10 6/mcL ) Low RBC 3.72 LAB HGB(LOINC) 13.0-17.5 G/dL Low Hgb 10.2 LAB HCT(LOINC) 40.0-52.0 % Low Hct 31.0 LAB MCV(LOINC) 81.0-100.0 fL MCV 83.4 LAB MCH(LOINC) 27.0-33.0 pg MCH 27.3 LAB MCHC(LOINC) 32.0-36.0 G/dL MCHC 32.8 LAB RDW(LOINC) 11.5-15.5 % RDW 14.8 LAB PLT(LOINC) 150-450 10 3/mcL Platelet 367 LAB MPV(LOINC) 6.4-10.5 fL MPV 7.6 Performed By: #### CBC, ADIFF, ANEU, BMP, GFR #### [place] [address] .AUTO DIFF Collected: 06/11/2017 Status: F Source: [facility] 7:07 AM [facility] REPOSITORY TYPE CODE TESTS RESULT OUT OF REFERENCE UNITS RANGE LAB LAMONT(LOINC) 50.0-75.0 % Neutrophil % 52.9 LAB LYM(LOINC) 20.0-40.0 % Lymphocyte % 22.5 LAB MON(LOINC) 2.0-13.0 % Monocyte % 10.2 LAB EO(LOINC) 0.0-6.0 % High Eosinophil % 13.1 LAB BAS(LOINC) 0.0-2.5 % Basophil % 1.3 LAB ABLYM(LOIN 0.90-4.32 10 3/mcL C) Lymphocyte, 1.70 Absolute LAB KALYAN(LOINC 0.09-1.40 10 3/mcL ) Monocyte, 0.80 Absolute LAB AEOS(LOINC 0.00-0.65 10 3/mcL ) High Eosinophil, 1.00 Absolute LAB ABAS(LOINC 0.00-0.27 10 3/mcL ) Basophil, 0.10 Absolute Performed By: #### CBC, ADIFF, ANEU, BMP, GFR #### [place] [address] .NEUABS Collected: 06/11/2017 Status: F Source: [facility] 7:07 AM [facility] REPOSITORY TYPE CODE TESTS RESULT OUT OF REFERENCE UNITS RANGE LAB ANEU(LOINC) 2.25-8.10 10 3/mcL Neutrophil, 4.10 Absolute Performed By: #### CBC, ADIFF, ANEU, BMP, GFR #### [place] [address] BMP Collected: 06/11/2017 Status: F Source: [facility] 7:07 AM [facility] REPOSITORY TYPE CODE TESTS RESULT OUT OF REFERENCE UNITS RANGE LAB GLU(LOINC) 70-110 mg/dL Glucose Level 87 LAB NA(LOINC) 136-145 mEq/L Sodium Level 141 LAB K(LOINC) 3.5-5.0 mEq/L Potassium Level 3.9 LAB CL(LOINC) 98-110 mEq/L Chloride 103 LAB CO2(LOINC) 22-32 mEq/L CO2 High 33 LAB EBAL(LOINC 4.0-15.0 mEq/L ) Electrolyte Balance 5.0 LAB BUN(LOINC) 8.0-22.0 mg/dL BUN 11.0 LAB CRE(LOINC) 0.60-1.40 mg/dL Creatinine Lvl (s) 0.73 LAB BC(LOINC) 10.0-22.0 ratio BUN/Creatinine 15.1 Ratio LAB CA(LOINC) 8.4-10.1 mg/dL Calcium Lvl 8.5 Performed By: #### CBC, ADIFF, ANEU, BMP, GFR #### [place] [address] .GFR Collected: 06/11/2017 Status: F Source: [facility] 7:07 AM [facility] REPOSITORY TYPE CODE TESTS RESULT OUT OF REFERENCE UNITS RANGE LAB GFRAA(LOINC ml/min/1.73 ) sqm GFR >60 [place] Result Comment: GFR Population mean for , Non- Americans Ages 20-29 = 116 mL/min/1.73 sq.m. Ages 30-39 = 107 mL/min/1.73 sq.m. Ages 40-49 = 99 mL/min/1.73 sq.m. Ages 50-59 = 93 mL/min/1.73 sq.m. Ages 60-69 = 85 mL/min/1.73 sq.m. Ages 70+ = 75 mL/min/1.73 sq.m. Chronic Kidney Disease: Less than 60 mL/min/1.73 square meters End Stage Renal Disease: Less than 15 mL/min/1.73 square meters LAB GFRNO(LOINC) ml/min/1.73sqm GFR Non- >60 Result Comment: GFR Population mean for , Non- Americans Ages 20-29 = 116 mL/min/1.73 sq.m. Ages 30-39 = 107 mL/min/1.73 sq.m. Ages 40-49 = 99 mL/min/1.73 sq.m. Ages 50-59 = 93 mL/min/1.73 sq.m. Ages 60-69 = 85 mL/min/1.73 sq.m. Ages 70+ = 75 mL/min/1.73 sq.m. Chronic Kidney Disease: Less than 60 mL/min/1.73 square meters End Stage Renal Disease: Less than 15 mL/min/1.73 square meters Performed By: #### CBC, ADIFF, ANEU, BMP, GFR #### [address] [address] VANCT Collected: 06/10/2017 Status: F Source: [facility] 11:02 PM [facility] REPOSITORY Order Comment: Please draw level prior to vancomycin administration. TYPE CODE TESTS RESULT OUT OF REFERENCE UNITS RANGE LAB LD019(LOIN C) LDose Vancomycin:(trou See eMAR gh) LAB 4092-3 5.0-20.0 mcg/mL VANCOMYCIN 13.7 Performed By: #### VANCT #### [place] [address] CBC Collected: 06/10/2017 Status: F Source: [facility] 6:48 AM [facility] REPOSITORY TYPE CODE TESTS RESULT OUT OF REFERENCE UNITS RANGE LAB WBC(LOINC) 4.50-10.80 10 3/mcL WBC 7.90 LAB RBCCT(LOINC 4.50-6.00 10 6/mcL ) Low RBC 3.76 LAB HGB(LOINC) 13.0-17.5 G/dL Low Hgb 10.5 LAB HCT(LOINC) 40.0-52.0 % Low Hct 31.3 LAB MCV(LOINC) 81.0-100.0 fL MCV 83.1 LAB MCH(LOINC) 27.0-33.0 pg MCH 28.0 LAB MCHC(LOINC) 32.0-36.0 G/dL MCHC 33.7 LAB RDW(LOINC) 11.5-15.5 % RDW 14.6 LAB PLT(LOINC) 150-450 10 3/mcL Platelet 339 LAB MPV(LOINC) 6.4-10.5 fL MPV 7.6 Performed By: #### CBC, ADIFF, ANEU, BMP, GFR #### [place] [address] .AUTO DIFF Collected: 06/10/2017 Status: F Source: [facility] 6:48 AM [facility] REPOSITORY TYPE CODE TESTS RESULT OUT OF REFERENCE UNITS RANGE LAB LAMONT(LOINC) 50.0-75.0 % Neutrophil % 63.1 LAB LYM(LOINC) 20.0-40.0 % Low Lymphocyte % 14.5 LAB MON(LOINC) 2.0-13.0 % Monocyte % 7.2 LAB EO(LOINC) 0.0-6.0 % High Eosinophil % 14.3 LAB BAS(LOINC) 0.0-2.5 % Basophil % 0.9 LAB ABLYM(LOIN 0.90-4.32 10 3/mcL C) Lymphocyte, 1.20 Absolute LAB KALYAN(LOINC 0.09-1.40 10 3/mcL ) Monocyte, 0.60 Absolute LAB AEOS(LOINC 0.00-0.65 10 3/mcL ) High Eosinophil, 1.10 Absolute LAB ABAS(LOINC 0.00-0.27 10 3/mcL ) Basophil, 0.10 Absolute Performed By: #### CBC, ADIFF, ANEU, BMP, GFR #### [place] [address] .NEUABS Collected: 06/10/2017 Status: F Source: [facility] 6:48 AM [facility] REPOSITORY TYPE CODE TESTS RESULT OUT OF REFERENCE UNITS RANGE LAB ANEU(LOINC) 2.25-8.10 10 3/mcL Neutrophil, 5.00 Absolute Performed By: #### CBC, ADIFF, ANEU, BMP, GFR #### [place] [address] BMP Collected: 06/10/2017 Status: F Source: [facility] 6:48 AM [facility] REPOSITORY TYPE CODE TESTS RESULT OUT OF REFERENCE UNITS RANGE LAB GLU(LOINC) 70-110 mg/dL Glucose Level 89 LAB NA(LOINC) 136-145 mEq/L Sodium Level 137 LAB K(LOINC) 3.5-5.0 mEq/L Potassium Level 3.9 LAB CL(LOINC) 98-110 mEq/L Chloride 100 LAB CO2(LOINC) 22-32 mEq/L CO2 30 LAB EBAL(LOINC 4.0-15.0 mEq/L ) Electrolyte Balance 7.0 LAB BUN(LOINC) 8.0-22.0 mg/dL BUN 9.0 LAB CRE(LOINC) 0.60-1.40 mg/dL Creatinine Lvl (s) 0.74 LAB BC(LOINC) 10.0-22.0 ratio BUN/Creatinine 12.2 Ratio LAB CA(LOINC) 8.4-10.1 mg/dL Calcium Lvl 8.4 Performed By: #### CBC, ADIFF, ANEU, BMP, GFR #### [facility] [address] [place] [address] .GFR Collected: 06/10/2017 Status: F Source: [facility] 6:48 AM [facility] TYPE CODE TESTS RESULT OUT OF REFERENCE UNITS RANGE LAB GFRAA(LOINC ml/min/1.73 ) sqm GFR >60 [place] Result Comment: GFR Population mean for , Non- Americans Ages 20-29 = 116 mL/min/1.73 sq.m. Ages 30-39 = 107 mL/min/1.73 sq.m. Ages 40-49 = 99 mL/min/1.73 sq.m. Ages 50-59 = 93 mL/min/1.73 sq.m. Ages 60-69 = 85 mL/min/1.73 sq.m. Ages 70+ = 75 mL/min/1.73 sq.m. Chronic Kidney Disease: Less than 60 mL/min/1.73 square meters End Stage Renal Disease: Less than 15 mL/min/1.73 square meters LAB GFRNO(LOINC) ml/min/1.73sqm GFR Non- >60 Result Comment: GFR Population mean for , Non- Americans Ages 20-29 = 116 mL/min/1.73 sq.m. Ages 30-39 = 107 mL/min/1.73 sq.m. Ages 40-49 = 99 mL/min/1.73 sq.m. Ages 50-59 = 93 mL/min/1.73 sq.m. Ages 60-69 = 85 mL/min/1.73 sq.m. Ages 70+ = 75 mL/min/1.73 sq.m. Chronic Kidney Disease: Less than 60 mL/min/1.73 square meters End Stage Renal Disease: Less than 15 mL/min/1.73 square meters Performed By: #### CBC, ADIFF, ANEU, BMP, GFR #### [place] [id number] VANCT Collected: 06/09/2017 Status: F Source: [facility] 6:03 PM [facility] REPOSITORY TYPE CODE TESTS RESULT OUT OF REFERENCE UNITS RANGE LAB LD019(LOIN C) LDose Vancomycin:(trou See eMAR gh) LAB 4092-3 5.0-20.0 mcg/mL VANCOMYCIN 14.0 Performed By: #### VANCT #### [place] [address] CBC Collected: 06/09/2017 Status: F Source: [facility] 4:36 AM [facility] REPOSITORY TYPE CODE TESTS RESULT OUT OF REFERENCE UNITS RANGE LAB WBC(LOINC) 4.50-10.80 10 3/mcL WBC 8.70 LAB RBCCT(LOINC 4.50-6.00 10 6/mcL ) Low RBC 3.77 LAB HGB(LOINC) 13.0-17.5 G/dL Low Hgb 10.5 LAB HCT(LOINC) 40.0-52.0 % Low Hct 31.2 LAB MCV(LOINC) 81.0-100.0 fL MCV 82.7 LAB MCH(LOINC) 27.0-33.0 pg MCH 27.9 LAB MCHC(LOINC) 32.0-36.0 G/dL MCHC 33.8 LAB RDW(LOINC) 11.5-15.5 % RDW 14.6 LAB PLT(LOINC) 150-450 10 3/mcL Platelet 384 LAB MPV(LOINC) 6.4-10.5 fL MPV 7.5 Performed By: #### CBC, ADIFF, ANEU, BMP, GFR #### [place] [address] .AUTO DIFF Collected: 06/09/2017 Status: F Source: [facility] 4:36 AM [facility] REPOSITORY TYPE CODE TESTS RESULT OUT OF REFERENCE UNITS RANGE LAB LAMONT(LOINC) 50.0-75.0 % High Neutrophil % 76.2 LAB LYM(LOINC) 20.0-40.0 % Low Lymphocyte % 12.1 LAB MON(LOINC) 2.0-13.0 % Monocyte % 7.1 LAB EO(LOINC) 0.0-6.0 % Eosinophil % 3.8 LAB BAS(LOINC) 0.0-2.5 % Basophil % 0.8 LAB ABLYM(LOIN 0.90-4.32 10 3/mcL C) Lymphocyte, 1.10 Absolute LAB KALYAN(LOINC 0.09-1.40 10 3/mcL ) Monocyte, 0.60 Absolute LAB AEOS(LOINC 0.00-0.65 10 3/mcL ) Eosinophil, 0.30 Absolute LAB ABAS(LOINC 0.00-0.27 10 3/mcL ) Basophil, 0.10 Absolute Performed By: #### CBC, ADIFF, ANEU, BMP, GFR #### [place] [address] .NEUABS Collected: 06/09/2017 Status: F Source: [facility] 4:36 AM [facility] REPOSITORY TYPE CODE TESTS RESULT OUT OF REFERENCE UNITS RANGE LAB ANEU(LOINC) 2.25-8.10 10 3/mcL Neutrophil, 6.60 Absolute Performed By: #### CBC, ADIFF, ANEU, BMP, GFR #### [place] [address] BMP Collected: 06/09/2017 Status: F Source: [facility] 4:36 AM [facility] REPOSITORY TYPE CODE TESTS RESULT OUT OF REFERENCE UNITS RANGE LAB GLU(LOINC) 70-110 mg/dL Glucose Level 91 LAB NA(LOINC) 136-145 mEq/L Sodium Level 144 LAB K(LOINC) 3.5-5.0 mEq/L Potassium Level 3.8 LAB CL(LOINC) 98-110 mEq/L Chloride 106 LAB CO2(LOINC) 22-32 mEq/L CO2 31 LAB EBAL(LOINC 4.0-15.0 mEq/L ) Electrolyte Balance 7.0 LAB BUN(LOINC) 8.0-22.0 mg/dL Low BUN 7.0 LAB CRE(LOINC) 0.60-1.40 mg/dL Creatinine Lvl (s) 0.74 LAB BC(LOINC) 10.0-22.0 ratio Low BUN/Creatinine 9.5 Ratio LAB CA(LOINC) 8.4-10.1 mg/dL Low Calcium Lvl 8.1 Performed By: #### CBC, ADIFF, ANEU, BMP, GFR #### [address] [address] .GFR Collected: 06/09/2017 Status: F Source: [place] [facility] 4:36 AM [facility] REPOSITORY TYPE CODE TESTS RESULT OUT OF REFERENCE UNITS RANGE LAB GFRAA(LOINC ml/min/1.73 ) sqm GFR >60 [place] Result Comment: GFR Population mean for , Non- Americans Ages 20-29 = 116 mL/min/1.73 sq.m. Ages 30-39 = 107 mL/min/1.73 sq.m. Ages 40-49 = 99 mL/min/1.73 sq.m. Ages 50-59 = 93 mL/min/1.73 sq.m. Ages 60-69 = 85 mL/min/1.73 sq.m. Ages 70+ = 75 mL/min/1.73 sq.m. Chronic Kidney Disease: Less than 60 mL/min/1.73 square meters End Stage Renal Disease: Less than 15 mL/min/1.73 square meters LAB GFRNO(LOINC) ml/min/1.73sqm GFR Non- >60 Result Comment: GFR Population mean for , Non- Americans Ages 20-29 = 116 mL/min/1.73 sq.m. Ages 30-39 = 107 mL/min/1.73 sq.m. Ages 40-49 = 99 mL/min/1.73 sq.m. Ages 50-59 = 93 mL/min/1.73 sq.m. Ages 60-69 = 85 mL/min/1.73 sq.m. Ages 70+ = 75 mL/min/1.73 sq.m. Chronic Kidney Disease: Less than 60 mL/min/1.73 square meters End Stage Renal Disease: Less than 15 mL/min/1.73 square meters Performed By: #### CBC, ADIFF, ANEU, BMP, GFR #### [address] [address] CBC Collected: 06/08/2017 Status: F Source: [facility] 6:30 AM [facility] REPOSITORY TYPE CODE TESTS RESULT OUT OF REFERENCE UNITS RANGE LAB WBC(LOINC) 4.50-10.80 10 3/mcL High WBC 12.10 LAB RBCCT(LOINC 4.50-6.00 10 6/mcL ) Low RBC 3.72 LAB HGB(LOINC) 13.0-17.5 G/dL Low Hgb 10.1 LAB HCT(LOINC) 40.0-52.0 % Low Hct 30.9 LAB MCV(LOINC) 81.0-100.0 fL MCV 83.0 LAB MCH(LOINC) 27.0-33.0 pg MCH 27.2 LAB MCHC(LOINC) 32.0-36.0 G/dL MCHC 32.8 LAB RDW(LOINC) 11.5-15.5 % RDW 14.5 LAB PLT(LOINC) 150-450 10 3/mcL Platelet 424 LAB MPV(LOINC) 6.4-10.5 fL MPV 7.9 Performed By: #### CBC, ADIFF, ANEU, BMP, GFR #### [address] [address] .AUTO DIFF Collected: 06/08/2017 Status: F Source: [facility] 6:30 AM [facility] REPOSITORY TYPE CODE TESTS RESULT OUT OF REFERENCE UNITS RANGE LAB LAMONT(LOINC) 50.0-75.0 % High Neutrophil % 78.3 LAB LYM(LOINC) 20.0-40.0 % Low Lymphocyte % 11.7 LAB MON(LOINC) 2.0-13.0 % Monocyte % 9.3 LAB EO(LOINC) 0.0-6.0 % Eosinophil % 0.3 LAB BAS(LOINC) 0.0-2.5 % Basophil % 0.4 LAB ABLYM(LOIN 0.90-4.32 10 3/mcL C) Lymphocyte, 1.40 Absolute LAB KALYAN(LOINC 0.09-1.40 10 3/mcL ) Monocyte, 1.10 Absolute LAB AEOS(LOINC 0.00-0.65 10 3/mcL ) Eosinophil, 0.00 Absolute LAB ABAS(LOINC 0.00-0.27 10 3/mcL ) Basophil, 0.00 Absolute Performed By: #### CBC, ADIFF, ANEU, BMP, GFR #### [address] [address] .NEUABS Collected: 06/08/2017 Status: F Source: [facility] 6:30 AM [facility] REPOSITORY TYPE CODE TESTS RESULT OUT OF REFERENCE UNITS RANGE LAB ANEU(LOINC) 2.25-8.10 10 3/mcL High Neutrophil, 9.50 Absolute Performed By: #### CBC, NORA, ANEU, BMP, GFR #### [address] [address] BMP Collected: 06/08/2017 Status: F Source: [facility] 6:30 AM [facility] REPOSITORY TYPE CODE TESTS RESULT OUT OF REFERENCE UNITS RANGE LAB GLU(LOINC) 70-110 mg/dL Glucose Level 108 LAB NA(LOINC) 136-145 mEq/L Sodium Level 145 LAB K(LOINC) 3.5-5.0 mEq/L Potassium Level 4.4 LAB CL(LOINC) 98-110 mEq/L Chloride 108 LAB CO2(LOINC) 22-32 mEq/L CO2 29 LAB EBAL(LOINC 4.0-15.0 mEq/L ) Electrolyte Balance 8.0 LAB BUN(LOINC) 8.0-22.0 mg/dL BUN 8.0 LAB CRE(LOINC) 0.60-1.40 mg/dL Creatinine Lvl (s) 0.67 LAB BC(LOINC) 10.0-22.0 ratio BUN/Creatinine 11.9 Ratio LAB CA(LOINC) 8.4-10.1 mg/dL Calcium Lvl 8.4 Performed By: #### GT, NORA, ANEU, BMP, GFR #### [address] [address] .GFR Collected: 06/08/2017 Status: F Source: [facility] 6:30 AM [facility] REPOSITORY TYPE CODE TESTS RESULT OUT OF REFERENCE UNITS RANGE LAB GFRAA(LOINC ml/min/1.73 ) sqm GFR >60 [place] Result Comment: GFR Population mean for , Non- Americans Ages 20-29 = 116 mL/min/1.73 sq.m. Ages 30-39 = 107 mL/min/1.73 sq.m. Ages 40-49 = 99 mL/min/1.73 sq.m. Ages 50-59 = 93 mL/min/1.73 sq.m. Ages 60-69 = 85 mL/min/1.73 sq.m. Ages 70+ = 75 mL/min/1.73 sq.m. Chronic Kidney Disease: Less than 60 mL/min/1.73 square meters End Stage Renal Disease: Less than 15 mL/min/1.73 square meters LAB GFRNO(LOINC) ml/min/1.73sqm GFR Non- >60 Result Comment: GFR Population mean for , Non- Americans Ages 20-29 = 116 mL/min/1.73 sq.m. Ages 30-39 = 107 mL/min/1.73 sq.m. Ages 40-49 = 99 mL/min/1.73 sq.m. Ages 50-59 = 93 mL/min/1.73 sq.m. Ages 60-69 = 85 mL/min/1.73 sq.m. Ages 70+ = 75 mL/min/1.73 sq.m. Chronic Kidney Disease: Less than 60 mL/min/1.73 square meters End Stage Renal Disease: Less than 15 mL/min/1.73 square meters Performed By: #### CBC, ADIFF, ANEU, BMP, GFR #### [place] [id number] VANCT Collected: 06/08/2017 Status: F Source: [facility] 12:03 AM [facility] REPOSITORY TYPE CODE TESTS RESULT OUT OF REFERENCE UNITS RANGE LAB LD019(LOIN C) LDose Vancomycin:(trou See eMAR gh) LAB 4092-3 5.0-20.0 mcg/mL VANCOMYCIN 8.9 Performed By: #### VANCT #### [place] [id number] Observed: 06/07/2017 Status: F Source: [facility] 9:43 AM [facility] REPOSITORY . MICRO - Microbiology PROCEDURE: Acid Fast Bacilli Culture w Stain if Ind [*1] SOURCE: Protected Specimen [employer] BODY SITE: COLLECTED DATE/TIME: 06/07/2017 09:43 EST RECEIVED DATE/TIME: 06/07/2017 09:47 EST START DATE/TIME: 06/07/2017 09:47 EST FREE TEXT SOURCE: FINAL REPORTS Final Report [] Verified Date/Time/Personnel: 08/03/2017 11:36 EDT No growth of Acid Fast Bacilli PRELIMINARY REPORTS Preliminary Report [] Verified Date/Time/Personnel: 06/07/2017 10:59 EST No growth of Acid Fast Bacilli to date. Final report to follow at 8 weeks. STAINS AFS [] Verified Date/Time/Personnel: 06/08/2017 11:17 EST Test not performed Performing Locations *1: This test was performed at: [facility], [address] [place] [address], [address] [place] [address] Performed By: #### CAF #### [place] [id number] Observed: 06/07/2017 Status: F Source: [facility] 9:42 AM [facility] REPOSITORY . MICRO - Microbiology PROCEDURE: Fungal Culture with Stain if Ind [*1] SOURCE: Protected Specimen [employer] BODY SITE: COLLECTED DATE/TIME: 06/07/2017 09:42 EST RECEIVED DATE/TIME: 06/07/2017 09:47 EST START DATE/TIME: 06/07/2017 09:47 EST FREE TEXT SOURCE: FINAL REPORTS Final Report [] Verified Date/Time/Personnel: 07/11/2017 10:44 EST No fungus isolated in 4 weeks. PRELIMINARY REPORTS Preliminary Report [] Verified Date/Time/Personnel: 06/12/2017 07:58 EST No fungus isolated to date. Final report to follow. STAINS FUNSM [] Verified Date/Time/Personnel: 06/08/2017 11:16 EST No fungal elements observed by calcofluor white stain. Performing Locations *1: This test was performed at: [address] Performed By: #### CFUNG #### [place] [id number] Observed: 06/07/2017 Status: F Source: [facility] 9:40 AM [facility] REPOSITORY . MICRO - Microbiology PROCEDURE: Acid Fast Bacilli Culture w Stain if Ind [*1] SOURCE: Bronchial Alveolar BODY SITE: Lavage COLLECTED DATE/TIME: 06/07/2017 09:40 EST RECEIVED DATE/TIME: 06/07/2017 09:44 EST START DATE/TIME: 06/07/2017 09:44 EST FREE TEXT SOURCE: FINAL REPORTS Final Report [] Verified Date/Time/Personnel: 08/03/2017 11:35 EDT No growth of Acid Fast Bacilli PRELIMINARY REPORTS Preliminary Report [] Verified Date/Time/Personnel: 06/07/2017 10:59 EST No growth of Acid Fast Bacilli to date. Final report to follow at 8 weeks. STAINS AFS [] Verified Date/Time/Personnel: 06/08/2017 11:17 EST Acid Fast Smear from Concentrated Specimen: Negative Performing Locations *1: This test was performed at: [address], [address] [place] [address] Performed By: #### CAF #### [place] [address] Observed: 06/07/2017 Status: F Source: [facility] 9:40 AM [facility] REPOSITORY . MICRO - Microbiology PROCEDURE: Fungal Culture with Stain if Ind [*1] SOURCE: Bronchial Alveolar BODY SITE: Lavage COLLECTED DATE/TIME: 06/07/2017 09:40 EST RECEIVED DATE/TIME: 06/07/2017 09:44 EST START DATE/TIME: 06/07/2017 09:44 EST FREE TEXT SOURCE: FINAL REPORTS Final Report [] Verified Date/Time/Personnel: 06/12/2017 13:28 EST Rare Aspergillus species Rare Penicillium species STAINS FUNSM [] Verified Date/Time/Personnel: 06/08/2017 11:15 EST Fungal elements observed by calcofluor white stain. Performing Locations *1: This test was performed at: [address], [address] [place] [address] Performed By: #### CFUNG #### [place] [address] Observed: 06/07/2017 Status: F Source: [facility] 9:39 AM [facility] REPOSITORY . MICRO - Microbiology PROCEDURE: Acid Fast Bacilli Culture w Stain if Ind [*1] SOURCE: Bronchial Washing BODY SITE: COLLECTED DATE/TIME: 06/07/2017 09:39 EST RECEIVED DATE/TIME: 06/07/2017 09:44 EST START DATE/TIME: 06/07/2017 09:44 EST FREE TEXT SOURCE: FINAL REPORTS Final Report [] Verified Date/Time/Personnel: 08/03/2017 11:34 EDT No growth of Acid Fast Bacilli PRELIMINARY REPORTS Preliminary Report [] Verified Date/Time/Personnel: 06/07/2017 10:59 EST No growth of Acid Fast Bacilli to date. Final report to follow at 8 weeks. STAINS AFS [] Verified Date/Time/Personnel: 06/08/2017 11:16 EST Acid Fast Smear from Concentrated Specimen: Negative Performing Locations *1: This test was performed at: [address] Performed By: #### CAF #### [place] [address] Observed: 06/07/2017 Status: F Source: [facility] 9:38 AM [facility] REPOSITORY . MICRO - Microbiology PROCEDURE: Fungal Culture with Stain if Ind [*1] SOURCE: Bronchial Washing BODY SITE: COLLECTED DATE/TIME: 06/07/2017 09:38 EST RECEIVED DATE/TIME: 06/07/2017 09:44 EST START DATE/TIME: 06/07/2017 09:44 EST FREE TEXT SOURCE: FINAL REPORTS Final Report [] Verified Date/Time/Personnel: 07/11/2017 10:44 EST No fungus isolated in 4 weeks. PRELIMINARY REPORTS Preliminary Report [] Verified Date/Time/Personnel: 06/12/2017 07:58 EST No fungus isolated to date. Final report to follow. STAINS FUNSM [] Verified Date/Time/Personnel: 06/08/2017 11:15 EST Fungal elements observed by calcofluor white stain. Performing Locations *1: This test was performed at: [address] Performed By: #### CFUNG #### [place] [address] Observed: 06/07/2017 Status: F Source: [facility] 9:37 AM [facility] REPOS[facility] . MICRO - Microbiology PROCEDURE: Culture Respiratory with Gram Stain [1 *1] SOURCE: Bronchial Washing BODY SITE: COLLECTED DATE/TIME: 06/07/2017 09:37 EST RECEIVED DATE/TIME: 06/07/2017 09:44 EST START DATE/TIME: 06/07/2017 09:44 EST FREE TEXT SOURCE: FINAL REPORTS Final Report [] Verified Date/Time/Personnel: 06/09/2017 07:05 EST Normal respiratory eryn present. PRELIMINARY REPORTS Preliminary Report [] Verified Date/Time/Personnel: 06/08/2017 07:30 EST Negative for respiratory pathogens at 24 hours. STAINS GS [] Verified Date/Time/Personnel: 06/07/2017 11:59 EST 4+ per high power field Mononuclear cells 4+ per high power field Polymorphonuclear cells 1+ per high power field Gram Positive Cocci Interpretive Data 1: Culture Respiratory with Gram Stain Requests for Mycoplasma, Legionella, Fungi, Mycobacteria, Chlamydia, and Viruses require ordering of those individual tests. Performing Locations *1: This test was performed at: [address] Performed By: #### CRESP #### [place] [address] NON-NECKTIE STITCHER CYTOLOGY Observed: 06/07/2017 Status: F Source: [facility] 8:37 AM [facility] REPOSIT[facility] . Pathology Reports Accession: Collected Date/Time: Received Date/Time: Pathologist: [id number] 06/07/2017 08:37 EST 06/07/2017 10:07 EST MD ADAM PRASAD Non-Protective Clothing Issuer Cytology Report CLINICAL INFORMATION: SEPSIS, POSSIBLE TB DIAGNOSIS: ATYPICAL CELLS PRESENT COMMENT: Favor Reactive Bronchial cells SPECIMEN: BRONCHOALVEOLAR LAVAGE GROSS DESCRIPTION: # of Blocks: 1 # of Monolayers: 1 Volume (ml) 20 Color: FRESH CLEAR FLUID Electronically Signed by Pathology report verified by [facility] Screened by: ELTON DW Electronically signed by ADAM PRASAD MD Sign-Out Date: 06/08/2017 10:35 Performing Lab: [address] Performed By: #### NGCR #### [place] [address] NON-NECKTIE STITCHER CYTOLOGY Observed: 06/07/2017 Status: F Source: [facility] 8:37 AM [facility] REPOS[facility] . Pathology Reports Accession: Collected Date/Time: Received Date/Time: Pathologist: [id number] 06/07/2017 08:37 EST 06/07/2017 10:05 MD ADAM AREVALO Non-Protective Clothing Issuer Cytology Report CLINICAL INFORMATION: SEPSIS, POSSIBLE TB DIAGNOSIS: NEGATIVE FOR MALIGNANCY COMMENT: Reactive Bronchial cells SPECIMEN: BRONCHIAL WASHING GROSS DESCRIPTION: # of Blocks: 1 # of Monolayers: 1 Volume (ml) 10 Color: FRESH PINK FLUID Electronically Signed by Pathology report verified by [facility] Screened by: LS DW Electronically signed by ADAM PRASAD MD Sign-Out Date: 06/08/2017 10:56 Performing Lab: [address] Performed By: #### NGCR #### [place] [address] NON-NECKTIE STITCHER CYTOLOGY Observed: 06/07/2017 Status: F Source: [facility] 8:37 [facility] REPOSITORY . Pathology Reports Accession: Collected Date/Time: Received Date/Time: Pathologist: [id number] 06/07/2017 08:37 EST 06/07/2017 10:03 MD ADAM AREVALO Non-Protective Clothing Issuer Cytology Report CLINICAL INFORMATION: SEPSIS, POSSIBLE TB DIAGNOSIS: NEGATIVE FOR MALIGNANCY SPECIMEN: BRONCHIAL BRUSH GROSS DESCRIPTION: # of Monolayers: 1 Volume (ml) 5 Color: CLEAR FIXED FLUID WITH BRUSH Electronically Signed by Pathology report verified by [facility] Screened by: LS DW Electronically signed by ADAM PRASAD MD Sign-Out Date: 06/08/2017 10:56 Performing Lab: [place] [address] [facility] Performed By: #### NGCR #### [place] [address] XR BRONCHOSCOPY Observed: 06/07/2017 Status: F Source: [place] 8:00 AM [facility] REPOSITORY ORIGINAL XR BRONCHOSCOPY CLINICAL STATEMENT: Abnormal chest Xray COMPARISON: None FINDINGS:29 seconds of fluoroscopic time with a total dose of 3.4mGy was utilized. 8 intraoperative images confirming forcep biopsy in the right lung were recorded Interpreted By: Val Burris MD Preliminary Report By: Val Burris MD Electronically Signed By: Val Burris MD Dictated Date: 06/07/2017 9:15:35 AM Prelim Date: 06/07/2017 9:15:35 AM Sign Date: 06/07/2017 9:16:02 AM BUN Collected: 06/07/2017 Status: F Source: [facility] 5:54 AM [facility] REPOSITORY TYPE CODE TESTS RESULT OUT OF RANGE REFERENCE UNITS LAB BUN(LOINC) 8.0-22.0 mg/dL Low BUN 7.0 Performed By: #### BUN, CRE, GFR #### [place] [address] CRE Collected: 06/07/2017 Status: F Source: [facility] 5:54 AM [facility] REPOSIT[facility] TYPE CODE TESTS RESULT OUT OF REFERENCE UNITS RANGE LAB CRE(LOINC) 0.60-1.40 mg/dL Creatinine Lvl 0.72 (s) Performed By: #### BUN, CRE, GFR #### [place] [address] .GFR Collected: 06/07/2017 Status: F Source: [facility] 5:54 AM [facility] REPOSITORY TYPE CODE TESTS RESULT OUT OF REFERENCE UNITS RANGE LAB GFRAA(LOINC ml/min/1.73 ) sqm GFR >60 [place] Result Comment: GFR Population mean for , Non- Americans Ages 20-29 = 116 mL/min/1.73 sq.m. Ages 30-39 = 107 mL/min/1.73 sq.m. Ages 40-49 = 99 mL/min/1.73 sq.m. Ages 50-59 = 93 mL/min/1.73 sq.m. Ages 60-69 = 85 mL/min/1.73 sq.m. Ages 70+ = 75 mL/min/1.73 sq.m. Chronic Kidney Disease: Less than 60 mL/min/1.73 square meters End Stage Renal Disease: Less than 15 mL/min/1.73 square meters LAB GFRNO(LOINC) ml/min/1.73sqm GFR Non- >60 Result Comment: GFR Population mean for , Non- Americans Ages 20-29 = 116 mL/min/1.73 sq.m. Ages 30-39 = 107 mL/min/1.73 sq.m. Ages 40-49 = 99 mL/min/1.73 sq.m. Ages 50-59 = 93 mL/min/1.73 sq.m. Ages 60-69 = 85 mL/min/1.73 sq.m. Ages 70+ = 75 mL/min/1.73 sq.m. Chronic Kidney Disease: Less than 60 mL/min/1.73 square meters End Stage Renal Disease: Less than 15 mL/min/1.73 square meters Performed By: #### BUN, CRE, GFR #### [address] [address] TROPI Collected: 06/06/2017 Status: F Source: [facility] 11:18 PM [facility] REPOSITORY TYPE CODE TESTS RESULT OUT OF REFERENCE UNITS RANGE LAB TROPI(LOINC 0.000-0.040 ng/mL ) Troponin I <0.015 Result Comment: Troponin I reference ranges (01/20/14): 0.00-0.040 ng/mL Negative and non-diagnostic. >0.040 ng/mL Consistent with cardiac damage, increased clinical risk and possibility of myocardial infarction. Serial measurements, a rise & fall in test results, clinical history, appropriate symptoms and/or ECG changes may help assess possibility of AK. *Other non-acute coronary syndrome conditions such as CHF, myocarditis, pulmonary emboli, sepsis and cardiac surgery could result in myocardial damage and increased troponin levels. Performed By: #### TROPI #### [address] [address] TROPI Collected: 06/06/2017 Status: F Source: [facility] 4:34 PM [facility] REPOSITORY TYPE CODE TESTS RESULT OUT OF REFERENCE UNITS RANGE LAB TROPI(LOINC 0.000-0.040 ng/mL ) Troponin I <0.015 Result Comment: Troponin I reference ranges (01/20/14): 0.00-0.040 ng/mL Negative and non-diagnostic. >0.040 ng/mL Consistent with cardiac damage, increased clinical risk and possibility of myocardial infarction. Serial measurements, a rise & fall in test results, clinical history, appropriate symptoms and/or ECG changes may help assess possibility of AK. *Other non-acute coronary syndrome conditions such as CHF, myocarditis, pulmonary emboli, sepsis and cardiac surgery could result in myocardial damage and increased troponin levels. Performed By: #### TROPI #### [place] [address] VANCT Collected: 06/06/2017 Status: F Source: [facility] 4:34 PM [facility] REPOSITORY TYPE CODE TESTS RESULT OUT OF REFERENCE UNITS RANGE LAB LD019(LOIN C) LDose Vancomycin:(trou See eMAR gh) LAB 4092-3 5.0-20.0 mcg/mL VANCOMYCIN 6.6 Performed By: #### VANCT #### [place] [address] TROPI Collected: 06/06/2017 Status: F Source: [facility] 11:03 AM [facility] REPOSIT[facility] TYPE CODE TESTS RESULT OUT OF REFERENCE UNITS RANGE LAB TROPI(LOINC 0.000-0.040 ng/mL ) Troponin I <0.015 Result Comment: Troponin I reference ranges (01/20/14): 0.00-0.040 ng/mL Negative and non-diagnostic. >0.040 ng/mL Consistent with cardiac damage, increased clinical risk and possibility of myocardial infarction. Serial measurements, a rise & fall in test results, clinical history, appropriate symptoms and/or ECG changes may help assess possibility of AK. *Other non-acute coronary syndrome conditions such as CHF, myocarditis, pulmonary emboli, sepsis and cardiac surgery could result in myocardial damage and increased troponin levels. Performed By: #### TROPI #### [place] [address] CBC Collected: 06/06/2017 Status: F Source: [facility] 6:17 AM [facility] REPOSITORY TYPE CODE TESTS RESULT OUT OF REFERENCE UNITS RANGE LAB WBC(LOINC) 4.50-10.80 10 3/mcL High WBC 11.80 LAB RBCCT(LOINC 4.50-6.00 10 6/mcL ) Low RBC 3.64 LAB HGB(LOINC) 13.0-17.5 G/dL Low Hgb 10.2 LAB HCT(LOINC) 40.0-52.0 % Low Hct 30.3 LAB MCV(LOINC) 81.0-100.0 fL MCV 83.3 LAB MCH(LOINC) 27.0-33.0 pg MCH 27.9 LAB MCHC(LOINC) 32.0-36.0 G/dL MCHC 33.5 LAB RDW(LOINC) 11.5-15.5 % RDW 14.1 LAB PLT(LOINC) 150-450 10 3/mcL Platelet 413 LAB MPV(LOINC) 6.4-10.5 fL MPV 7.9 Performed By: #### CBC, ADIFF, ANEU, BMP, GFR #### [place] [address] .AUTO DIFF Collected: 06/06/2017 Status: F Source: [facility] 6:17 AM [facility] REPOSITORY TYPE CODE TESTS RESULT OUT OF REFERENCE UNITS RANGE LAB LAMONT(LOINC) 50.0-75.0 % Neutrophil % 56.2 LAB LYM(LOINC) 20.0-40.0 % Lymphocyte % 21.1 LAB MON(LOINC) 2.0-13.0 % Monocyte % 9.4 LAB EO(LOINC) 0.0-6.0 % High Eosinophil % 12.2 LAB BAS(LOINC) 0.0-2.5 % Basophil % 1.1 LAB ABLYM(LOIN 0.90-4.32 10 3/mcL C) Lymphocyte, 2.50 Absolute LAB KALYAN(LOINC 0.09-1.40 10 3/mcL ) Monocyte, 1.10 Absolute LAB AEOS(LOINC 0.00-0.65 10 3/mcL ) High Eosinophil, 1.40 Absolute LAB ABAS(LOINC 0.00-0.27 10 3/mcL ) Basophil, 0.10 Absolute Performed By: #### CBC, ADIFF, ANEU, BMP, GFR #### [place] [address] .NEUABS Collected: 06/06/2017 Status: F Source: [facility] 6:17 AM [facility] REPOSITORY TYPE CODE TESTS RESULT OUT OF REFERENCE UNITS RANGE LAB ANEU(LOINC) 2.25-8.10 10 3/mcL Neutrophil, 6.60 Absolute Performed By: #### CBC, ADIFF, ANEU, BMP, GFR #### [place] [address] BMP Collected: 06/06/2017 Status: F Source: [facility] 6:17 AM [facility] REPOSITORY TYPE CODE TESTS RESULT OUT OF REFERENCE UNITS RANGE LAB GLU(LOINC) 70-110 mg/dL Glucose Level 90 LAB NA(LOINC) 136-145 mEq/L Sodium Level 141 LAB K(LOINC) 3.5-5.0 mEq/L Potassium Level 3.8 LAB CL(LOINC) 98-110 mEq/L Chloride 108 LAB CO2(LOINC) 22-32 mEq/L CO2 26 LAB EBAL(LOINC 4.0-15.0 mEq/L ) Electrolyte Balance 7.0 LAB BUN(LOINC) 8.0-22.0 mg/dL Low BUN 7.0 LAB CRE(LOINC) 0.60-1.40 mg/dL Creatinine Lvl (s) 0.64 LAB BC(LOINC) 10.0-22.0 ratio BUN/Creatinine 10.9 Ratio LAB CA(LOINC) 8.4-10.1 mg/dL Low Calcium Lvl 8.2 Performed By: #### CBC, ADIFF, ANEU, BMP, GFR #### [place] [address] .GFR Collected: 06/06/2017 Status: F Source: [facility] 6:17 AM [facility] TYPE CODE TESTS RESULT OUT OF REFERENCE UNITS RANGE LAB GFRAA(LOINC ml/min/1.73 ) sqm GFR >60 [place] Result Comment: GFR Population mean for , Non- Americans Ages 20-29 = 116 mL/min/1.73 sq.m. Ages 30-39 = 107 mL/min/1.73 sq.m. Ages 40-49 = 99 mL/min/1.73 sq.m. Ages 50-59 = 93 mL/min/1.73 sq.m. Ages 60-69 = 85 mL/min/1.73 sq.m. Ages 70+ = 75 mL/min/1.73 sq.m. Chronic Kidney Disease: Less than 60 mL/min/1.73 square meters End Stage Renal Disease: Less than 15 mL/min/1.73 square meters LAB GFRNO(LOINC) ml/min/1.73sqm GFR Non- >60 Result Comment: GFR Population mean for , Non- Americans Ages 20-29 = 116 mL/min/1.73 sq.m. Ages 30-39 = 107 mL/min/1.73 sq.m. Ages 40-49 = 99 mL/min/1.73 sq.m. Ages 50-59 = 93 mL/min/1.73 sq.m. Ages 60-69 = 85 mL/min/1.73 sq.m. Ages 70+ = 75 mL/min/1.73 sq.m. Chronic Kidney Disease: Less than 60 mL/min/1.73 square meters End Stage Renal Disease: Less than 15 mL/min/1.73 square meters Performed By: #### CBC, ADIFF, ANEU, BMP, GFR #### [place] [address] TROPI Collected: 06/06/2017 Status: F Source: [facility] 6:17 AM [facility] REPOSITORY TYPE CODE TESTS RESULT OUT OF REFERENCE UNITS RANGE LAB TROPI(LOINC 0.000-0.040 ng/mL ) Troponin I <0.015 Result Comment: Troponin I reference ranges (01/20/14): 0.00-0.040 ng/mL Negative and non-diagnostic. >0.040 ng/mL Consistent with cardiac damage, increased clinical risk and possibility of myocardial infarction. Serial measurements, a rise & fall in test results, clinical history, appropriate symptoms and/or ECG changes may help assess possibility of AK. *Other non-acute coronary syndrome conditions such as CHF, myocarditis, pulmonary emboli, sepsis and cardiac surgery could result in myocardial damage and increased troponin levels. Performed By: #### TROPI #### [place] [address] CRYPS Collected: 06/06/2017 Status: F Source: [facility] 6:17 AM [facility] REPOSITORY TYPE CODE TESTS RESULT OUT OF REFERENCE UNITS RANGE LAB [id number] Negative 3(LOINC) Crypto Ag Negative Performed By: #### CRYPS1, CALCIT #### [place] [address] CALC Collected: 06/06/2017 Status: F Source: [facility] 6:17 AM [facility] REPOSITORY TYPE CODE TESTS RESULT OUT OF REFERENCE UNITS RANGE LAB CALCIT(FIGUEROA NC) Calcitonin Level <2.0 Result Comment: Reference range: 0.0 to 7.5 Unit: pg/mL (NOTE) INTERPRETIVE INFORMATION: Calcitonin Calcitonin levels greater than 100 pg/mL may occur in the following conditions: medullary thyroid carcinomas (MTC), leukemias, and myeloproliferative disorders. Provocative testing (calcium) is suggested in patients with MTC if the calcitonin is not clearly diagnostic. The Siemens Immulite 2000 method is used. Results obtained with different assay methods or kits cannot be used interchangeably. Calcitonin is useful in monitoring medullary thyroid carcinoma. The calcitonin assay value, regardless of level, should not be interpreted as absolute evidence of the presence or absence of malignant disease. Performed by [facility], [address] [place] [id number] [email or web address], Woodrow Vora MD, Lab. Director Performed By: #### CRYPS1, CALCIT #### [address] [address] HISTOAG Collected: 06/05/2017 Status: F Source: [facility] 11:10 PM [facility] REPOSITORY TYPE CODE TESTS RESULT OUT OF REFERENCE UNITS RANGE LAB HISTAG(FIGUEROA ND ng/mL NC) Histoplasma Ag Ur None detected. Result Comment: (NOTE) Reference interval: None Detected Results reported as ng/mL in 0.4 - 19.0 ng/mL range. Results above the limit of detection but below 0.4 ng/mL are reported as 'Positive, Below the Limit of Quantification'. Results above 19.0 ng/mL are reported as 'Positive, Above the Limit of Quantification'. This test was developed and its performance characteristics determined by [employer]. It has not been cleared or approved by the FDA; however, FDA clearance or approval is not currently required for clinical use. The results are not intended to be used as the sole means for clinical diagnosis or patient management decisions. Test performed by [facility], [address] [place] [address] [place] [address] Performed By: #### UHISTO #### [address] [address] TROPI Collected: 06/05/2017 Status: F Source: [facility] 10:53 PM [facility] REPOSITORY TYPE CODE TESTS RESULT OUT OF REFERENCE UNITS RANGE LAB TROPI(LOINC 0.000-0.040 ng/mL ) Troponin I <0.015 Result Comment: Troponin I reference ranges (01/20/14): 0.00-0.040 ng/mL Negative and non-diagnostic. >0.040 ng/mL Consistent with cardiac damage, increased clinical risk and possibility of myocardial infarction. Serial measurements, a rise & fall in test results, clinical history, appropriate symptoms and/or ECG changes may help assess possibility of AK. *Other non-acute coronary syndrome conditions such as CHF, myocarditis, pulmonary emboli, sepsis and cardiac surgery could result in myocardial damage and increased troponin levels. Performed By: #### TROPI #### [address] [address] TROPI Collected: 06/05/2017 Status: F Source: [facility] 5:33 PM [facility] REPOSITORY TYPE CODE TESTS RESULT OUT OF REFERENCE UNITS RANGE LAB TROPI(LOINC 0.000-0.040 ng/mL ) Troponin I <0.015 Result Comment: Troponin I reference ranges (01/20/14): 0.00-0.040 ng/mL Negative and non-diagnostic. >0.040 ng/mL Consistent with cardiac damage, increased clinical risk and possibility of myocardial infarction. Serial measurements, a rise & fall in test results, clinical history, appropriate symptoms and/or ECG changes may help assess possibility of AK. *Other non-acute coronary syndrome conditions such as CHF, myocarditis, pulmonary emboli, sepsis and cardiac surgery could result in myocardial damage and increased troponin levels. Performed By: #### TROPI #### [address] [address] TROPI Collected: 06/05/2017 Status: F Source: [facility] 10:51 AM [facility] REPOSITORY TYPE CODE TESTS RESULT OUT OF REFERENCE UNITS RANGE LAB TROPI(LOINC 0.000-0.040 ng/mL ) Troponin I <0.015 Result Comment: Troponin I reference ranges (01/20/14): 0.00-0.040 ng/mL Negative and non-diagnostic. >0.040 ng/mL Consistent with cardiac damage, increased clinical risk and possibility of myocardial infarction. Serial measurements, a rise & fall in test results, clinical history, appropriate symptoms and/or ECG changes may help assess possibility of AK. *Other non-acute coronary syndrome conditions such as CHF, myocarditis, pulmonary emboli, sepsis and cardiac surgery could result in myocardial damage and increased troponin levels. Performed By: #### TROPI #### [address] [address] CBC Collected: 06/05/2017 Status: F Source: [facility] 7:11 AM [facility] REPOSITORY TYPE CODE TESTS RESULT OUT OF REFERENCE UNITS RANGE LAB WBC(LOINC) 4.50-10.80 10 3/mcL WBC 10.50 LAB RBCCT(LOINC 4.50-6.00 10 6/mcL ) Low RBC 3.44 LAB HGB(LOINC) 13.0-17.5 G/dL Low Hgb 9.5 LAB HCT(LOINC) 40.0-52.0 % Low Hct 28.4 LAB MCV(LOINC) 81.0-100.0 fL MCV 82.7 LAB MCH(LOINC) 27.0-33.0 pg MCH 27.5 LAB MCHC(LOINC) 32.0-36.0 G/dL MCHC 33.2 LAB RDW(LOINC) 11.5-15.5 % RDW 14.3 LAB PLT(LOINC) 150-450 10 3/mcL Platelet 432 LAB MPV(LOINC) 6.4-10.5 fL MPV 7.8 Performed By: #### CBC, ADIFF, ANEU, MG, GFR, BMP, HBSAG, 1HAVM, HBCM, HCV1, HIV, AHBCOT, TBBLD #### [place] [address] .AUTO DIFF Collected: 06/05/2017 Status: F Source: [facility] 7:11 AM [facility] REPOSITORY TYPE CODE TESTS RESULT OUT OF REFERENCE UNITS RANGE LAB LAMONT(LOINC) 50.0-75.0 % Neutrophil % 52.7 LAB LYM(LOINC) 20.0-40.0 % Low Lymphocyte % 19.5 LAB MON(LOINC) 2.0-13.0 % Monocyte % 8.6 LAB EO(LOINC) 0.0-6.0 % High Eosinophil % 18.1 LAB BAS(LOINC) 0.0-2.5 % Basophil % 1.1 LAB ABLYM(LOIN 0.90-4.32 10 3/mcL C) Lymphocyte, 2.00 Absolute LAB KALYAN(LOINC 0.09-1.40 10 3/mcL ) Monocyte, 0.90 Absolute LAB AEOS(LOINC 0.00-0.65 10 3/mcL ) High Eosinophil, 1.90 Absolute LAB ABAS(LOINC 0.00-0.27 10 3/mcL ) Basophil, 0.10 Absolute Performed By: #### CBC, ADIFF, ANEU, MG, GFR, BMP, HBSAG, 1HAVM, HBCM, HCV1, HIV, AHBCOT, TBBLD #### [address] [address] .NEUABS Collected: 06/05/2017 Status: F Source: [facility] 7:11 AM [facility] REPOSITORY TYPE CODE TESTS RESULT OUT OF REFERENCE UNITS RANGE LAB ANEU(LOINC) 2.25-8.10 10 3/mcL Neutrophil, 5.50 Absolute Performed By: #### CBC, ADIFF, ANEU, MG, GFR, BMP, HBSAG, 1HAVM, HBCM, HCV1, HIV, AHBCOT, TBBLD #### [address] [address] MG Collected: 06/05/2017 Status: F Source: [facility] 7:11 AM [facility] REPOSITORY TYPE CODE TESTS RESULT OUT OF REFERENCE UNITS RANGE LAB MG(LOINC) 1.6-2.4 mg/dL Magnesium Lvl 2.0 Performed By: #### CBC, ADIFF, ANEU, MG, GFR, BMP, HBSAG, 1HAVM, HBCM, HCV1, HIV, AHBCOT, TBBLD #### [address] [address] .GFR Collected: 06/05/2017 Status: F Source: [facility] 7:11 [facility] REPOSITORY TYPE CODE TESTS RESULT OUT OF REFERENCE UNITS RANGE LAB GFRAA(LOINC ml/min/1.73 ) sqm GFR >60 [place] Result Comment: GFR Population mean for , Non- Americans Ages 20-29 = 116 mL/min/1.73 sq.m. Ages 30-39 = 107 mL/min/1.73 sq.m. Ages 40-49 = 99 mL/min/1.73 sq.m. Ages 50-59 = 93 mL/min/1.73 sq.m. Ages 60-69 = 85 mL/min/1.73 sq.m. Ages 70+ = 75 mL/min/1.73 sq.m. Chronic Kidney Disease: Less than 60 mL/min/1.73 square meters End Stage Renal Disease: Less than 15 mL/min/1.73 square meters LAB GFRNO(LOINC) ml/min/1.73sqm GFR Non- >60 Result Comment: GFR Population mean for , Non- Americans Ages 20-29 = 116 mL/min/1.73 sq.m. Ages 30-39 = 107 mL/min/1.73 sq.m. Ages 40-49 = 99 mL/min/1.73 sq.m. Ages 50-59 = 93 mL/min/1.73 sq.m. Ages 60-69 = 85 mL/min/1.73 sq.m. Ages 70+ = 75 mL/min/1.73 sq.m. Chronic Kidney Disease: Less than 60 mL/min/1.73 square meters End Stage Renal Disease: Less than 15 mL/min/1.73 square meters Performed By: #### CBC, ADIFF, ANEU, MG, GFR, BMP, HBSAG, 1HAVM, HBCM, HCV1, HIV, AHBCOT, TBBLD #### [address] [address] BMP Collected: 06/05/2017 Status: F Source: [facility] 7:11 AM [facility] TYPE CODE TESTS RESULT OUT OF REFERENCE UNITS RANGE LAB GLU(LOINC) 70-110 mg/dL Glucose Level 109 LAB NA(LOINC) 136-145 mEq/L Sodium Level 141 LAB K(LOINC) 3.5-5.0 mEq/L Potassium Level 3.5 LAB CL(LOINC) 98-110 mEq/L Chloride 106 LAB CO2(LOINC) 22-32 mEq/L CO2 26 LAB EBAL(LOINC 4.0-15.0 mEq/L ) Electrolyte Balance 9.0 LAB BUN(LOINC) 8.0-22.0 mg/dL BUN 10.0 LAB CRE(LOINC) 0.60-1.40 mg/dL Creatinine Lvl (s) 0.61 LAB BC(LOINC) 10.0-22.0 ratio BUN/Creatinine 16.4 Ratio LAB CA(LOINC) 8.4-10.1 mg/dL Low Calcium Lvl 8.2 Performed By: #### CBC, ADIFF, ANEU, MG, GFR, BMP, HBSAG, 1HAVM, HBCM, HCV1, HIV, AHBCOT, TBBLD #### [address] [address] HBSAG Collected: 06/05/2017 Status: F Source: [facility] 7:11 AM [facility] REPOSITORY TYPE CODE TESTS RESULT OUT OF REFERENCE UNITS RANGE LAB HBSAG(LOINC Negative ) Hep B Negative Surf Ag Performed By: #### CBC, ADIFF, ANEU, MG, GFR, BMP, HBSAG, 1HAVM, HBCM, HCV1, HIV, AHBCOT, TBBLD #### [place] [address] HAVM Collected: 06/05/2017 Status: F Source: [facility] 7:11 AM [facility] REPOSITORY TYPE CODE TESTS RESULT OUT OF REFERENCE UNITS RANGE LAB HAVM(LOINC Negative ) Negative Hep A IgM Ab LAB HAVM1(LOIN C) No Hep A serological IgM Ab Int evidence of a current Hepatitis A infection. Performed By: #### CBC, ADIFF, ANEU, MG, GFR, BMP, HBSAG, 1HAVM, HBCM, HCV1, HIV, AHBCOT, TBBLD #### [place] [address] HBCM Collected: 06/05/2017 Status: F Source: [facility] 7:11 AM [facility] REPOSITORY TYPE CODE TESTS RESULT OUT OF REFERENCE UNITS RANGE LAB HBCM(LOINC) Negative Hep B Negative Core IgM Ab Result Comment: No serological evidence of ACUTE Hepatitis B infection. Performed By: #### CBC, ADIFF, ANEU, MG, GFR, BMP, HBSAG, 1HAVM, HBCM, HCV1, HIV, AHBCOT, TBBLD #### [place] [address] HCV Collected: 06/05/2017 Status: F Source: [facility] 7:11 [facility] REPOSITORY TYPE CODE TESTS RESULT OUT OF REFERENCE UNITS RANGE LAB HCV(LOINC) Negative Negative Hep C Ab LAB HCV1(LOINC ) No serological Hep C evidence of Ab Int Hepatitis C infection, although levels of anti-HCV may be undetectable in early infection. Performed By: #### CBC, ADIFF, ANEU, MG, GFR, BMP, HBSAG, 1HAVM, HBCM, HCV1, HIV, AHBCOT, TBBLD #### [place] [address] HIV Collected: 06/05/2017 Status: F Source: [facility] 7:11 AM [facility] REPOSITORY TYPE CODE TESTS RESULT OUT OF RANGE REFERENCE UNITS LAB HIV(LOINC) Negative HIV 1/2 Ab Result Comment: Negative Specimen is negative for anti-HIV-1 and anti-HIV-2. Performed By: #### CBC, ADIFF, ANEU, MG, GFR, BMP, HBSAG, 1HAVM, HBCM, HCV1, HIV, AHBCOT, TBBLD #### [place] [id number] [place] [address] HBCAB Collected: 06/05/2017 Status: F Source: [facility] 7:11 AM [facility] REPOSITORY TYPE CODE TESTS RESULT OUT OF REFERENCE UNITS RANGE LAB HBCAB(LOINC NEGAT ) Hep B Negative Core Ab Result Comment: Performed By: [facility] [address] [place] [address] Molder Helper: Keya Erickson M.D. CLIA#: [id number] Phone#: Performed By: #### CBC, ADIFF, ANEU, MG, GFR, BMP, HBSAG, 1HAVM, HBCM, HCV1, HIV, AHBCOT, TBBLD #### [address] [address] TBBLD Collected: 06/05/2017 Status: F Source: [facility] 7:11 AM [facility] REPOSITORY TYPE CODE TESTS RESULT OUT OF REFERENCE UNITS RANGE LAB TBBLD(LOIN C) Quantiferon See Comments Result Comment: Complete reference lab report scanned to EMR. Performed By: #### CBC, ADIFF, ANEU, MG, GFR, BMP, HBSAG, 1HAVM, HBCM, HCV1, HIV, AHBCOT, TBBLD #### [address] [address] TROPI Collected: 06/05/2017 Status: F Source: [facility] 7:11 AM [facility] REPOSITORY TYPE CODE TESTS RESULT OUT OF REFERENCE UNITS RANGE LAB TROPI(LOINC 0.000-0.040 ng/mL ) Troponin I <0.015 Result Comment: Troponin I reference ranges (01/20/14): 0.00-0.040 ng/mL Negative and non-diagnostic. >0.040 ng/mL Consistent with cardiac damage, increased clinical risk and possibility of myocardial infarction. Serial measurements, a rise & fall in test results, clinical history, appropriate symptoms and/or ECG changes may help assess possibility of AK. *Other non-acute coronary syndrome conditions such as CHF, myocarditis, pulmonary emboli, sepsis and cardiac surgery could result in myocardial damage and increased troponin levels. Performed By: #### TROPI #### [place] [address] Observed: 06/05/2017 Status: F Source: [facility] 5:44 AM [facility] REPOSITORY . MICRO - Microbiology PROCEDURE: Fungal Culture with Stain if Ind [*1] SOURCE: Sputum BODY SITE: COLLECTED DATE/TIME: 06/05/2017 05:44 EST RECEIVED DATE/TIME: 06/05/2017 08:14 EST START DATE/TIME: 06/05/2017 08:14 EST FREE TEXT SOURCE: FINAL REPORTS Final Report [] Verified Date/Time/Personnel: 07/04/2017 09:26 EST Moderate Presumptive Jennifer albicans Rare Penicillium species PRELIMINARY REPORTS Preliminary Report [] Verified Date/Time/Personnel: 06/13/2017 14:54 EST Moderate Presumptive Jennifer albicans Rare Penicillium species Culture will be held for 4 weeks. Preliminary Report [] Verified Date/Time/Personnel: 06/07/2017 10:47 EST Moderate Presumptive Jennifer albicans Culture will be held for 4 weeks. STAINS FUNSM [] Verified Date/Time/Personnel: 06/05/2017 10:50 EST Fungal elements resembling septated hyphae observed by calcofluor white stain. Performing Locations *1: This test was performed at: [facility], [address] [place] [address], [address] [place] [address] Performed By: #### CFUNG #### [place] [address] Observed: 06/05/2017 Status: F Source: [facility] 5:44 AM [facility] REPOSITORY . MICRO - Microbiology PROCEDURE: Culture Respiratory with Gram Stain [1 *1] SOURCE: Sputum BODY SITE: COLLECTED DATE/TIME: 06/05/2017 05:44 EST RECEIVED DATE/TIME: 06/05/2017 08:14 EST START DATE/TIME: 06/05/2017 08:14 EST FREE TEXT SOURCE: FINAL REPORTS Final Report [] Verified Date/Time/Personnel: 06/07/2017 07:09 EST Normal respiratory eryn present. PRELIMINARY REPORTS Preliminary Report [] Verified Date/Time/Personnel: 06/06/2017 07:57 EST Negative for respiratory pathogens at 24 hours. STAINS GS [] Verified Date/Time/Personnel: 06/05/2017 11:14 EST Predominance of polys Rare Mononuclear cells 2+ Gram Positive Cocci 1+ Gram Positive Rods Interpretive Data 1: Culture Respiratory with Gram Stain Requests for Mycoplasma, Legionella, Fungi, Mycobacteria, Chlamydia, and Viruses require ordering of those individual tests. Performing Locations *1: This test was performed at: [address] Performed By: #### CRESP #### [place] [id number] Observed: 06/05/2017 Status: F Source: [facility] 5:44 AM [facility] . MICRO - Microbiology PROCEDURE: Acid Fast Bacilli Culture w Stain if Ind [*1] SOURCE: Sputum Induced BODY SITE: COLLECTED DATE/TIME: 06/05/2017 05:44 EST RECEIVED DATE/TIME: 06/05/2017 08:14 EST START DATE/TIME: 06/05/2017 08:14 EST FREE TEXT SOURCE: FINAL REPORTS Final Report [] Verified Date/Time/Personnel: 08/03/2017 11:33 EDT No growth of Acid Fast Bacilli PRELIMINARY REPORTS Preliminary Report [] Verified Date/Time/Personnel: 06/06/2017 01:59 EST No growth of Acid Fast Bacilli to date. Final report to follow at 8 weeks. STAINS AFS [] Verified Date/Time/Personnel: 06/06/2017 11:00 EST Acid Fast Smear from Concentrated Specimen: Negative Performing Locations *1: This test was performed at: [address] Performed By: #### CAF #### [place] [id number] Observed: 06/05/2017 Status: F Source: [facility] 5:36 AM [facility] REPOSITORY . MICRO - Microbiology PROCEDURE: Streptococcus Pneumoniae Urine Antig [1 *1] SOURCE: Urine, Clean Catch BODY SITE: COLLECTED DATE/TIME: 06/05/2017 05:36 EST RECEIVED DATE/TIME: 06/05/2017 06:00 EST START DATE/TIME: 06/05/2017 06:00 EST FREE TEXT SOURCE: FINAL REPORTS Final Report [] Verified Date/Time/Personnel: 06/05/2017 06:18 EST Presumptive negative for pneumococcal pneumonia, suggesting no current or recent pneumococcal infection. Infection due to Strep pneumoniae cannot be ruled out since the antigen present in the sample may be below the detection limit of the test. Interpretive Data 1: Streptococcus Pneumoniae Urine Antig This test has not been evaluated on patients taking antibiotics for greater than 24 hours or on patients who have recently completed an antibiotic regimen. The accuracy of this test has not been proven in young children. Performing Locations *1: This test was performed at: [address] Performed By: #### SPAG #### [place] [id number] Observed: 06/05/2017 Status: F Source: [facility] 5:36 AM [facility] REPOSITORY . MICRO - Microbiology PROCEDURE: Legionella Urine Ag [*1] SOURCE: Urine BODY SITE: COLLECTED DATE/TIME: 06/05/2017 05:36 EST RECEIVED DATE/TIME: 06/05/2017 06:00 EST START DATE/TIME: 06/05/2017 06:00 EST FREE TEXT SOURCE: FINAL REPORTS Final Report [] Verified Date/Time/Personnel: 06/05/2017 06:18 EST Presumptive negative for L. pneumophila serogroup 1 antigen in urine, suggesting no recent or current infection. Legionnaire's disease cannot be ruled out since other serogroups and species may also cause disease. Performing Locations *1: This test was performed at: [address] Performed By: #### ANNA #### [place] [address] UA Collected: 06/05/2017 Status: F Source: [facility] 5:36 AM [facility] REPOSITORY TYPE CODE TESTS RESULT OUT OF RANGE REFERENCE UNITS LAB SPCUA(FIGUEROA NC) UA Specimen Type Clean Catch LAB CLRUA(FIGUEROA NC) UA Color Yellow LAB APPUA(FIGUEROA Clear NC) UA Appear Abnormal Cloudy LAB SGUA(LOIN 1.006-1.029 C) UA Spec Abnormal Grav >=1.030 LAB GLUA(LOIN Negative mg/dL C) UA Glucose Negative LAB BILUA(FIGUEROA Neg-Trace NC) UA Bili Negative LAB KETUA(FIGUEROA Neg-Trace mg/dL NC) UA Ketones Trace LAB BLDUA(FIGUEROA Neg-Trace NC) UA Blood Negative LAB PHUA(LOIN 5.0 - 8.0 C) UA pH 6.0 LAB PROUA(FIGUEROA Negative mg/dL NC) UA Protein Negative LAB UROUA(FIGUEROA 0.2-1.0 E.U./dL NC) UA Urobilinogen 0.2 LAB NITUA(FIGUEROA Negative NC) UA Nitrite Negative LAB LEUUA(FIGUEROA Negative NC) UA Leuk Est Negative Performed By: #### UA, UAMIC #### [place] [address] UAMIC Collected: 06/05/2017 Status: F Source: [facility] 5:36 AM [facility] REPOSITORY TYPE CODE TESTS RESULT OUT OF REFERENCE UNITS RANGE LAB RBCUA(LOIN 0-2 /hpf C) UA RBC Negative LAB WBCUA(LOIN 0-5 /hpf C) UA WBC Negative LAB EPIUA(LOIN 0-20 /hpf C) UA Squam Epithelial Negative LAB AMOUA(LOIN /hpf C) UA 3+ Amorphus LAB COCR(LOINC /hpf ) UA CA Ox 1+ Crystal Performed By: #### UA, UAMIC #### [place] [address] Observed: 06/05/2017 Status: F Source: [facility] 5:36 AM [facility] REPOSITORY . MICRO - Microbiology PROCEDURE: Urine Culture [*1] SOURCE: Urine, Clean Catch BODY SITE: COLLECTED DATE/TIME: 06/05/2017 05:36 EST RECEIVED DATE/TIME: 06/05/2017 12:01 EST START DATE/TIME: 06/05/2017 12:01 EST FREE TEXT SOURCE: FINAL REPORTS Final Report [] Verified Date/Time/Personnel: 06/07/2017 07:25 EST No growth at 48 hours. Sensitivity testing not indicated. PRELIMINARY REPORTS Preliminary Report [] Verified Date/Time/Personnel: 06/06/2017 08:05 EST No growth to date Performing Locations *1: This test was performed at: [address] Performed By: #### CUR #### [place] [id number] Observed: 06/05/2017 Status: F Source: [facility] 2:53 AM [facility] REPOSITORY . MICRO - Microbiology PROCEDURE: Rapid Influenza A+B Screen w Cult if Ind [*1] SOURCE: Nares BODY SITE: COLLECTED DATE/TIME: 06/05/2017 02:53 EST RECEIVED DATE/TIME: 06/05/2017 03:06 EST START DATE/TIME: 06/05/2017 03:07 EST FREE TEXT SOURCE: FINAL REPORTS Final Report [] Verified Date/Time/Personnel: 06/05/2017 03:31 EST Specimen is negative for the presence of influenza A antigen. . Specimen is negative for the presence of influenza B antigen. . Inadequate specimen collection, improper sample handling and/or low levels of viral shedding may yield a false-negative result. . The optimal specimen type for the Rapid Flu test is a nasopharyngeal wash/aspirate or nasopharyngeal swab. All negative rapid tests for Flu A and Flu B will be confirmed with a Respiratory Id Panel by PCR. . Assay method employs immunofluorescence technology. Performing Locations *1: This test was performed at: [address] Performed By: #### RFLU #### [place] [address] RESPID Collected: 06/05/2017 Status: F Source: [facility] 12:12 AM [facility]POS[facility] TYPE CODE TESTS RESULT OUT OF REFERENCE UNITS RANGE LAB RESADENO( Not Detected LOINC) Adenovirus Not Detected LAB COVHKU1(L Not Detected OINC) Coronavirus HKU1 Not Detected LAB COVNL63(L Not Detected OINC) Coronavirus NL63 Not Detected LAB [id number](L Not Detected OINC) Coronavirus 229E Not Detected LAB COVOC43(L Not Detected OINC) Coronavirus OC43 Not Detected LAB HMV(LOINC Not Detected ) Human Metapneumovirus Not Detected LAB INFA(LOIN Not Detected C) Influenza A Not Detected LAB INFAB(FIGUEROA Not Detected NC) Influenza B Not Detected LAB PARAFLU1( Not Detected LOINC) Parainfluenza 1 Not Detected LAB PARAFLU2( Not Detected LOINC) Parainfluenza 2 Not Detected LAB PARAFLU3( Not Detected LOINC) Parainfluenza 3 Not Detected LAB PARAFLU4( Not Detected LOINC) Parainfluenza 4 Not Detected LAB RHINO(FIGUEROA Not Detected NC) Rhinovirus/Enterovir us Not Detected LAB RESRSV(LO Not Detected INC) Respiratory Syncytial Virus Not Detected LAB RESMYCO(L Not Detected OINC) Mycoplasma pneumoniae Not Detected LAB RESCHLAM( Not Detected LOINC) Chlamydophila pneumoniae Not Detected LAB RESBORD(L Not Detected OINC) Bordetella Pertussis Not Detected LAB RESBPAR(L Not Detected OINC) Bordetella Parapertussis Not Detected Performed By: #### RESPID #### [place] [address] HISTOAG Collected: 06/04/2017 Status: F Source: [facility] 11:14 PM [facility] REPOS[facility] TYPE CODE TESTS RESULT OUT OF REFERENCE UNITS RANGE LAB HISTAG(FIGUEROA ND ng/mL NC) Histoplasma Ag Ur None detected. Result Comment: (NOTE) Reference interval: None Detected Results reported as ng/mL in 0.4 - 19.0 ng/mL range. Results above the limit of detection but below 0.4 ng/mL are reported as 'Positive, Below the Limit of Quantification'. Results above 19.0 ng/mL are reported as 'Positive, Above the Limit of Quantification'. This test was developed and its performance characteristics determined by [employer]. It has not been cleared or approved by the FDA; however, FDA clearance or approval is not currently required for clinical use. The results are not intended to be used as the sole means for clinical diagnosis or patient management decisions. Test performed by [employer], [facility] [place] [address] Performed By: #### UHISTO #### [address] [address] Observed: 06/04/2017 Status: F Source: [facility] 11:03 PM [facility] REPOSITORY . MICRO - Microbiology PROCEDURE: Blood Culture (bacterial) [*1] SOURCE: Blood BODY SITE: COLLECTED DATE/TIME: 06/04/2017 23:03 EST RECEIVED DATE/TIME: 06/04/2017 23:11 EST START DATE/TIME: 06/04/2017 23:11 EST FREE TEXT SOURCE: FINAL REPORTS Final Report [] Verified Date/Time/Personnel: 06/09/2017 23:59 EST Blood Culture: No Growth at 5 days. PRELIMINARY REPORTS Preliminary Report [] Verified Date/Time/Personnel: 06/04/2017 23:59 EST Culture has been received in lab and is no growth to date. Routine cultures are held for 5 days. Performing Locations *1: This test was performed at: [facility], [address] [place] [address], [address] [place] [address] Performed By: #### CBL #### [place] [address] Observed: 06/04/2017 Status: F Source: [facility] 11:03 PM [facility] REPOSITORY . MICRO - Microbiology PROCEDURE: Acid Fast Blood Culture [*1] SOURCE: Blood BODY SITE: COLLECTED DATE/TIME: 06/04/2017 23:03 EST RECEIVED DATE/TIME: 06/04/2017 23:11 EST START DATE/TIME: 06/04/2017 23:11 EST FREE TEXT SOURCE: FINAL REPORTS Final Report [] Verified Date/Time/Personnel: 08/03/2017 11:32 EDT No growth of Acid Fast Bacilli PRELIMINARY REPORTS Preliminary Report [] Verified Date/Time/Personnel: 06/04/2017 23:59 EST No growth of Acid Fast Bacilli to date. Final report to follow at 8 weeks. STAINS AFS [] Verified Date/Time/Personnel: 06/05/2017 10:52 EST Acid Fast Smear from Concentrated Specimen: Negative Performing Locations *1: This test was performed at: [facility], [address] [place] [address], [id number] , [facility] Performed By: #### CAFB #### [address] [address] CAION Collected: 06/04/2017 Status: F Source: [facility] 11:01 [facility] REPOSITORY TYPE CODE TESTS RESULT OUT OF REFERENCE UNITS RANGE LAB CAION(LOINC 1.12-1.32 mmol/L ) Low Calcium 1.07 Ionized Performed By: #### CAION, LAC, CBC, ADIFF, ANEU, PRO, GFR, BMP, HFP, MG #### [address] [address] LAC Collected: 06/04/2017 Status: F Source: [facility] 11:01 [facility] REPOSITORY TYPE CODE TESTS RESULT OUT OF REFERENCE UNITS RANGE LAB LAC(LOINC) 0.2-2.0 mmol/L Lactic Acid 1.6 Lvl Performed By: #### CAION, LAC, CBC, ADIFF, ANEU, PRO, GFR, BMP, HFP, MG #### [address] [address] CBC Collected: 06/04/2017 Status: F Source: [facility] 11:01 [facility] REPOSITORY TYPE CODE TESTS RESULT OUT OF REFERENCE UNITS RANGE LAB WBC(LOINC) 4.50-10.80 10 3/mcL WBC 10.10 LAB RBCCT(LOINC 4.50-6.00 10 6/mcL ) Low RBC 3.88 LAB HGB(LOINC) 13.0-17.5 G/dL Low Hgb 10.6 LAB HCT(LOINC) 40.0-52.0 % Low Hct 32.5 LAB MCV(LOINC) 81.0-100.0 fL MCV 83.7 LAB MCH(LOINC) 27.0-33.0 pg MCH 27.4 LAB MCHC(LOINC) 32.0-36.0 G/dL MCHC 32.7 LAB RDW(LOINC) 11.5-15.5 % RDW 14.5 LAB PLT(LOINC) 150-450 10 3/mcL High Platelet 471 LAB MPV(LOINC) 6.4-10.5 fL MPV 7.9 Performed By: #### CAION, LAC, CBC, ADIFF, ANEU, PRO, GFR, BMP, HFP, MG #### [place] [id number] .AUTO DIFF Collected: 06/04/2017 Status: F Source: [facility] 11:01 [facility] REPOSITORY TYPE CODE TESTS RESULT OUT OF REFERENCE UNITS RANGE LAB LAMONT(LOINC) 50.0-75.0 % Neutrophil % 66.4 LAB LYM(LOINC) 20.0-40.0 % Low Lymphocyte % 16.3 LAB MON(LOINC) 2.0-13.0 % Monocyte % 6.4 LAB EO(LOINC) 0.0-6.0 % High Eosinophil % 9.7 LAB BAS(LOINC) 0.0-2.5 % Basophil % 1.2 LAB ABLYM(LOIN 0.90-4.32 10 3/mcL C) Lymphocyte, 1.60 Absolute LAB KALYAN(LOINC 0.09-1.40 10 3/mcL ) Monocyte, 0.60 Absolute LAB AEOS(LOINC 0.00-0.65 10 3/mcL ) High Eosinophil, 1.00 Absolute LAB ABAS(LOINC 0.00-0.27 10 3/mcL ) Basophil, 0.10 Absolute Performed By: #### CAICLAUDINE, LAC, CBC, ADIFF, ANEU, PRO, GFR, BMP, HFP, MG #### [place] [address] .NEUABS Collected: 06/04/2017 Status: F Source: [facility] 11:01 [facility] REPOSITORY TYPE CODE TESTS RESULT OUT OF REFERENCE UNITS RANGE LAB ANEU(LOINC) 2.25-8.10 10 3/mcL Neutrophil, 6.70 Absolute Performed By: #### CAION, LAC, CBC, ADIFF, ANEU, PRO, GFR, BMP, HFP, MG #### [address] [address] PRO Collected: 06/04/2017 Status: F Source: [facility] 11:01 [facility] REPOSITORY TYPE CODE TESTS RESULT OUT OF REFERENCE UNITS RANGE LAB PT(LOINC) 9.0-14.5 seconds Protime 14.0 Result Comment: Effective 07/15/08, Protime results may be affected by some antibiotics (i.e. Ciprofloxacin, Azithromycin, Bactrim) which may potentiate the action of oral anticoagulants, with further increases in Protime/INR. LAB INR(LOINC) ratio PT International Ratio 1.2 Result Comment: The [employer] [employer] (CHEST, 1992, [id number]) recommended therapeutic range for oral anticoagulant therapy is: LOW RISK: Prophylaxis of venous thrombosis INR: 2.0-3.0 Treatment of pulmonary embolism 2.0-3.0 Prevention of systemic embolism 2.0-3.0 HIGH RISK: Mechanical prosthetic valves 2.5-3.5 Performed By: #### CAION, LAC, CBC, ADIFF, ANEU, PRO, GFR, BMP, HFP, MG #### [place] [address] .GFR Collected: 06/04/2017 Status: F Source: [facility] 11:01 PM [facility] REPOSITORY TYPE CODE TESTS RESULT OUT OF REFERENCE UNITS RANGE LAB GFRAA(LOINC ml/min/1.73 ) sqm GFR >60 [place] Result Comment: GFR Population mean for , Non- Americans Ages 20-29 = 116 mL/min/1.73 sq.m. Ages 30-39 = 107 mL/min/1.73 sq.m. Ages 40-49 = 99 mL/min/1.73 sq.m. Ages 50-59 = 93 mL/min/1.73 sq.m. Ages 60-69 = 85 mL/min/1.73 sq.m. Ages 70+ = 75 mL/min/1.73 sq.m. Chronic Kidney Disease: Less than 60 mL/min/1.73 square meters End Stage Renal Disease: Less than 15 mL/min/1.73 square meters LAB GFRNO(LOINC) ml/min/1.73sqm GFR Non- >60 Result Comment: GFR Population mean for , Non- Americans Ages 20-29 = 116 mL/min/1.73 sq.m. Ages 30-39 = 107 mL/min/1.73 sq.m. Ages 40-49 = 99 mL/min/1.73 sq.m. Ages 50-59 = 93 mL/min/1.73 sq.m. Ages 60-69 = 85 mL/min/1.73 sq.m. Ages 70+ = 75 mL/min/1.73 sq.m. Chronic Kidney Disease: Less than 60 mL/min/1.73 square meters End Stage Renal Disease: Less than 15 mL/min/1.73 square meters Performed By: #### XAVIER, LAC, CBC, ADIFF, ANEU, PRO, GFR, BMP, HFP, MG #### [address] [address] BMP Collected: 06/04/2017 Status: F Source: [facility] 11:01 [facility] REPOSITORY TYPE CODE TESTS RESULT OUT OF REFERENCE UNITS RANGE LAB GLU(LOINC) 70-110 mg/dL Glucose Level 84 LAB NA(LOINC) 136-145 mEq/L Sodium Level 142 LAB K(LOINC) 3.5-5.0 mEq/L Potassium Level 4.2 Result Comment: Specimen slightly hemolyzed. Results may be falsely elevated. LAB CL(LOINC) 98-110 mEq/L Chloride 108 LAB CO2(LOINC) 22-32 mEq/L CO2 26 LAB EBAL(LOINC) 4.0-15.0 mEq/L Electrolyte Balance 8.0 LAB BUN(LOINC) 8.0-22.0 mg/dL BUN 10.0 LAB CRE(LOINC) 0.60-1.40 mg/dL Creatinine Lvl (s) 0.70 LAB BC(LOINC) 10.0-22.0 ratio BUN/Creatinine Ratio 14.3 LAB CA(LOINC) 8.4-10.1 mg/dL Calcium Lvl Low 8.1 Performed By: #### XAVIER, LAC, CBC, ADIFF, ANEU, PRO, GFR, BMP, HFP, MG #### [address] [address] HFP Collected: 06/04/2017 Status: F Source: [facility] 11:01 [facility] REPOSITORY TYPE CODE TESTS RESULT OUT OF REFERENCE UNITS RANGE LAB PROT(LOINC) 6.0-8.5 G/dL Total Protein 6.4 LAB ALB(LOINC) 3.2-4.8 G/dL Low Albumin Level 2.2 LAB GLB(LOINC) 1.5-3.8 G/dL High Globulin 4.2 LAB AG(LOINC) 0.9-1.6 ratio Low A/G Ratio 0.5 LAB BILT(LOINC) 0.2-1.2 mg/dL Bili Total 0.2 LAB BILAD(LOINC 0.0-0.4 mg/dL ) Bili Direct 0.1 LAB BILI(LOINC) 0.1-10.0 mg/dL Bili Indirect 0.1 LAB AP(LOINC) 38-126 U/L Alk Phos 95 LAB AST(LOINC) 8-34 U/L AST/SGOT 15 Result Comment: Specimen slightly hemolyzed. Results may be falsely elevated. LAB ALT(LOINC) 12-55 U/L ALT/SGPT 18 Performed By: #### CAION, LAC, CBC, ADIFF, ANEU, PRO, GFR, BMP, HFP, MG #### [address] [address] MG Collected: 06/04/2017 Status: F Source: [facility] 11:01 [facility] REPOSITORY TYPE CODE TESTS RESULT OUT OF REFERENCE UNITS RANGE LAB MG(LOINC) 1.6-2.4 mg/dL Magnesium Lvl 2.0 Result Comment: Specimen slightly hemolyzed. Results may be falsely elevated. Performed By: #### CAION, LAC, CBC, ADIFF, ANEU, PRO, GFR, BMP, HFP, MG #### [address] [address] Observed: 06/04/2017 Status: F Source: [facility] 11:01 [facility] REPOSITORY . MICRO - Microbiology PROCEDURE: Blood Culture (bacterial and fungal) [*1] SOURCE: Blood BODY SITE: COLLECTED DATE/TIME: 06/04/2017 23:01 EST RECEIVED DATE/TIME: 06/04/2017 23:11 EST START DATE/TIME: 06/04/2017 23:11 EST FREE TEXT SOURCE: FINAL REPORTS Final Report [] Verified Date/Time/Personnel: 07/02/2017 08:31 EST Blood Culture with fungus: No growth at 4 weeks. PRELIMINARY REPORTS Preliminary Report [] Verified Date/Time/Personnel: 06/04/2017 23:59 EST Culture has been received in lab and is no growth to date. Culture will be held for four weeks. Performing Locations *1: This test was performed at: [facility], [address] [place] [address], [id number] Performed By: #### CFUNGB #### [address] [address] COCIMG Collected: 06/04/2017 Status: F Source: [facility] 11:01 PM [facility] REPOSITORY TYPE CODE TESTS RESULT OUT OF REFERENCE UNITS RANGE LAB COCIGG(FIGUEROA NC) Coccidioides Ab, IgG 0.1 Result Comment: Reference range: <=0.9 Unit: IV (NOTE) INTERPRETIVE INFORMATION: Coccidioides Antibody, Ig.9 IV or less: Negative - No significant level of Coccidioides IgG antibody detected. 1.0 - 1.4 IV: Equivocal - Questionable presence of Coccidioides IgG antibody detected. Repeat testing in 10-14 days may be helpful. 1.5 IV or greater: Positive - Presence of IgG antibody to Coccidioides detected, suggestive of current or past infection. IgG antibody usually appears by the third week of infection and may persist for years. Both tube precipitin (TP) and CF antigens are represented in the PJ tests. LAB COCIGM(LOINC) Coccidioides Ab, IgM 0.3 Result Comment: Reference range: <=0.9 Unit: IV (NOTE) INTERPRETIVE INFORMATION: Coccidioides Antibody, IgM: 0.9 IV or less: Negative - No significant level of Coccidioides IgM antibody detected. 1.0 - 1.4 IV: Equivocal - Questionable presence of Coccidioides IgM antibody detected. Repeat testing in 10-14 days may be helpful. 1.5 IV or greater: Positive - Presence of IgM antibody to Coccidioides detected, suggestive of current or recent infection. In most symptomatic patients, IgM antibody usually appears by the second week of infection and disappears by the fourth month. Both tube precipitin (TP) and CF antigens are represented in the PJ tests. Performed by [facility], [address] [place] [id number] [email or web address], Woodrow Vora MD, Lab. Director Performed By: #### COCIMG, HISTAB #### [address] [address] HISTAB Collected: 06/04/2017 Status: F Source: [facility] 11:01 PM FOUNDATION REPOSITORY TYPE CODE TESTS RESULT OUT OF REFERENCE UNITS RANGE LAB HSTMCF(LOIN DLT8 C) Histo Mycelial <1:8 AB-CF Result Comment: Reference Range: Negative <1:8 Performed By: [facility] KO-SU [facility] [place] [address] Molder Helper: Keya Erickson M.D. CLIA#: [id number] Phone#: LAB HSTYCF(LOINC) DLT8 Histo Yeast <1:8 AB-CF Result Comment: Reference Range: Negative <1:8 Performed By: [address] [place] [address] Molder Helper: Keya Erickson M.D. CLIA#: [id number] Phone#: LAB HISTID(LOINC) NEGAT Histoplasma AB - ID Negative Result Comment: Performed By: [facility] KO-SU [address] [place] [address] Molder Helper: Keya Erickson M.D. CLIA#: [id number] Phone#: Performed By: #### COCIMG, HISTAB #### [place] [address] ALLERGIES ALLERGIES DATE TYPE / CODE NAME / CODE REACTION SEVERITY SOURCE 04/27/2018 Drug methotrexate Hives Rash [facility] Allergy/4160 /[id number]( [facility] [address]19(SNOMED RXNORM) Repository CT) Drug METHOTREXATE Moderate Abdifatah [place] Allergy/4160 /[id number](RX (Severity [facility] [address]43(SNOMED NORM) Modifier) Repository CT) (Qualifier Value) ENCOUNTERS ENCOUNTERS ADMIT/DISCHARGE ACCOUNT NUMBER ADMITTING ENCOUNTER LOCATION SOURCE CLASS 06/07/2018 [id number] Ambulatory [facility] ding:PAVLAB Repository 06/07/2018/06/07/19 [id number] Ambulatory BMSBuilding: Anahi 19 BMS.[facility] Repository 06/04/2018 [id number] Ambulatory [facility] ding:MTLAB Repository 05/18/2018 [id number] Ambulatory [facility] ding:CT Repository 05/04/2018 [id number] Ambulatory [facility] ding:PSN Repository 05/04/2018 [id number] Ambulatory BMSBuilding: [facility] Repository 04/27/2018/04/27/20 [id number] Ambulatory BMSBuilding: [place] 18 BMS.[facility] Repository 01/31/2018 [id number] OLY, Ambulatory Abdifatah BARBER [facility] Repository 01/31/2018 [id number] JOAQUIM, Ambulatory Abdifatah FREEDMAN [facility] Repository 10/23/2017/10/24/[id number] TAMMY [facility] [address] [place] [address] 18 HUMPHREY Mcfarland Room: ERBed: [facility] Repository 08/04/2017/08/05/19 [id number] [facility] Ambulatory Abdifatah Garcia 18 , [facility] Repository 07/17/2017/07/19/19 [id number] Ambulatory [address] Repository 07/09/2017/07/10/19 [id number] BRITTANEY, Emergency [address] [place] [address] DANIEL Harden Room: ERBed: [facility] Repository 07/08/2017/07/08/19 [id number] [facility] Ambulatory [facility]h [facility] , [facility] Repository 07/06/2017/07/06/19 [id number] Ambulatory AULTMANBuild Jos 18 ing:Critical access hospital Repository 06/04/2017/06/25/19 [id number] FATEHCHAND, Inpatient ABuilding:CV Jos 18 ANODIKA Encounter SDRoom: Health 0219Bed: A [facility] Repository PAYERS PAYERS ENCOUNTER GUARANTOR PAYER SUBSCRIBER SOURCE 06/07/2018 CHARLIE AMAYA Primary CHARLIE Christian Jr.[address] Insurance:JORGEInvrepRakesh Latif: [address] Number: [id number] Indian Dental Clinic [address]Swi: [id number] Repository Date:6227-59-04AI BOX (MG) [address] [address]WX: 06/07/2018 Secondary NOT GIVENUNK [place] Insurance:SELF PAY [facility] Number: Effective Repository Date:2018-06-07 06/07/2018 CHARLIE AMAYA Primary CHARLIE Christian Jr.[address] SR Insurance:AULTCAREPol Jr.: [address] Number: [id number] Indian Dental Clinic [address]Qos: [id number] Repository Date:5158-99-60AH BOX () [address] [address]BM: 06/07/2018 Secondary NOT GIVENUNK [place] Insurance:SELF PAY [facility] Number: Effective Repository Date:2018-05-31 06/04/2018 CHARLIE AMAYA Primary CHARLIE Christian Jr.[address] SR Insurance:AULTCAREPol Jr.: [address] Number: [id number] Indian Dental Clinic [address]Vsr: [id number] Repository Date:4783-61-96FN BOX () [address] [address]QA: 06/04/2018 Secondary NOT GIVENUNK [place] Insurance:SELF PAY [facility] Number: Effective Repository Date:2018-06-04 05/18/2018 CHARLIE AMAYA Primary CHARLIE Christian Jr.[address] Insurance:AULTCAREPol Jr.: [address] Number: [id number] Indian Dental Clinic [address]Nhm: [id number] Repository Date:7687-02-03LM BOX () [address] [address]IB: 05/18/2018 Secondary NOT GIVENUNK [place] Insurance:SELF PAY [facility] Number: Effective Repository Date:2018-05-02 05/04/2018 CHARLIE AMAYA Primary CHARLIE Christian Jr.[address] Insurance:AULTCAREPol Jr.: [address] Number: [id number] Indian Dental Clinic [address]Rni: [id number] Repository Date:8327-73-02FU BOX () [address] [address]OT: 05/04/2018 Secondary NOT GIVENUNK [place] Insurance:SELF PAY [facility] Number: Effective Repository Date:2018-04-27 05/04/2018 CHARLIE AMAYA Primary CHARLIE Christian Jr.[address] SR Insurance:AULTCAREPol Jr.: [address] icy Number: [id number] Indian Dental Clinic [address]Zlt: [id number] Repository Date:7307-60-29WH BOX () [address] [place] [address]LN: 05/04/2018 Secondary NOT GIVENUNK [place] Insurance:SELF PAY [facility] Number: Effective Repository Date:2018-05-04 04/27/2018 CHARLIE AMAYA Primary CHARLIE Lemusoster [id number] SR Insurance:AULTCAREPol JRDOB: [address] icy Number: [id number] Indian Dental Clinic [address]Kwg: [id number] Repository Date:5118-56-01YD BOX () [address] [place] [address]AG: 04/27/2018 Secondary NOT GIVENUNK [place] Insurance:SELF PAY [facility] Number: Effective Repository Date:2018-03-02 01/31/2018 CHARLIE DYERB: Insurance:AULTCAREPol BUTLERDOB: [facility] [id number] icy Number: [id number] [facility] [id number] 0 SR Repository [address] [place] [address], Date:Plan Name:[address] [id number]: [place] [address] () 01/31/2018 CHARLIE DYERB: Insurance:AULTCAREPol BUTLERDOB: [facility] icy Number: [id number] [facility] SR [id number] 0 SR Repository [address] [place] [address], Date:Plan Name:[address] [place] [id number]: [place] [phone] (HP) 10/23/2017 CHARLIE Mclain Primary CHARLIE Mclain Abdifatah Garcia BUTLERDOB: Insurance:AULTCAREPol BUTLERDOB: [facility] icy Number: [id number] [facility] SR [id number] 0 SR Repository [address] [place] [address], Date:Plan Name:[address] [place] [id number]: [place] [phone] (HP) 08/04/2017 CHARLIE Mclain Primary CHARLIE Mclain Abdifatah Garcia BUTLERDOB: Insurance:AULTCAREPol BUTLERDOB: [facility] icy Number: [id number] [facility] SR [id number] 0 SR Repository [address] [place] [address], Date:Plan Name:[address] [id number]: [place] [phone] (HP) 07/09/2017 CHARLIE Mclain Primary CHARLIE Mclain Abdifatah Garcia BUTLERDOB: Insurance:AULTCAREPol BUTLERDOB: [facility] icy Number: [id number] [facility] SR [id number] 0 SR Repository [address] [place] [address], Date:Plan Name:[address] [place] [id number]: [place] [phone] (HP) 07/08/2017 CHARLIE Mclain Primary CHARLIE Mclain Abdifatah Garcia BUTLERDOB: Insurance:AULTCAREPol BUTLERDOB: [facility] icy Number: [id number] [facility] SR [id number] 0 SR Repository [address] [place] [address], Date:Plan Name:[address] [id number]: [place] [phone] (HP) 07/06/2017 CHAR[facility]IE [facility]clain [facility] Insurance:AULTCARE JrDOB: [facility] [id number] Number: [id number] Repository [address] [id number] [address], Date:2017-07-06 - [address] [place] [address]Vnj: [id number] [place] [id number]: Name:GARDEN TRACTOR MECHANIC Box (HP) [address] [place] [address] ()Tel: [phone]: (wp) [phone] 06/04/2017 CHARLIE AMAYA Primary CHARLIE AMAYA [facility] Insurance:MONAHANSCARE DOB: [facility] P99Whzsec Number: [id number] Repository [address] [id number] [address], Date:2017-05-15 - [address] [place] [address]Rnu: [id number] [address]Sax: Name:GARDEN TRACTOR MECHANIC Box (HP) [address] [place] [address] (HP)Tel: [phone]: ([phone]
== END ==
LOC: MTLAB 08:30
PROVIDERS: Family Provider Family Medicine; PCP Family Medicine; Referring Provider Internal Medicine Rheumatology; Visit Provider Internal Medicine Rheumatology
DX: M05.79 Rheumatoid arthritis with rheumatoid factor of multiple sites without organ or systems involvement (principal); Z79.899 Other long term (current) drug therapy
CPT/HCPCS: 36415; 80053; 85025

== ENCOUNTER → 2018-06-07 13:42 | Outpatient (CLI) | payer OTHER, SELFPAY ==
[2018-06-12 05:07] LABS: Ash, White 0.11 kU/L (Class 0/I); Black Walnut <0.10 kU/L (Class 0); Cat Hair / Dander,Stand 0.21 kU/L (Class 0/I); Cedar, Mountain 0.16 kU/L (Class 0/I); Cladosporium herbarum <0.10 kU/L (Class 0); Cockroach, American 1.03 kU/L (Class II); Cottonwood 0.12 kU/L (Class 0/I); D farinae Mite 3.26 kU/L (Class III); D pteronyssinus 2.63 kU/L (Class III); Dog Epithelia 0.27 kU/L (Class 0/I); Elm, American White 0.13 kU/L (Class 0/I); Immunoglobulin E 443 IU/mL (0-100); Maple/Box Elder <0.10 kU/L (Class 0); Mulberry, White <0.10 kU/L (Class 0); Oak, White <0.10 kU/L (Class 0); Pecan <0.10 kU/L (Class 0); Penicillium Notatum 2.92 kU/L (Class III); Pigweed, Rough <0.10 kU/L (Class 0); Russian Thistle 0.16 kU/L (Class 0/I); Sheep Sorrel <0.10 kU/L (Class 0); Sycamore, American <0.10 kU/L (Class 0); Timothy Grass 0.95 kU/L (Class II)
[2018-06-12 12:44] LABS: Mouse Urine <0.10 kU/L (Class 0)
== END ==
LOC: PAVLAB 13:49
PROVIDERS: Referring Provider Internal Medicine Critical Care Medicine; Visit Provider Internal Medicine Critical Care Medicine
DX: R05 Cough (principal)
CPT/HCPCS: 36415; 82785; 86003

== ENCOUNTER → 2019-03-08 13:14 | Outpatient (CLI) | payer OTHER, SELFPAY ==
[2019-02-01 14:14] VITALS: BMI 18.8
== END ==
LOC: SL 13:14
PROVIDERS: Referring Provider Nurse Practitioner Acute Care; Visit Provider Nurse Practitioner Acute Care
DX: G47.33 Obstructive sleep apnea (adult) (pediatric) (principal)
CPT/HCPCS: 95806

== ENCOUNTER → 2019-07-05 20:06 | Outpatient (CLI) | payer OTHER, SELFPAY ==
[2019-02-01 14:14] VITALS: BMI 18.8
== END ==
PROVIDERS: Referring Provider Internal Medicine Critical Care Medicine; Visit Provider Internal Medicine Critical Care Medicine
DX: G47.10 Hypersomnia, unspecified (principal)
CPT/HCPCS: 95810

== ENCOUNTER → 2020-09-04 12:04 | Outpatient (CLI) | payer OTHER, SELFPAY ==
[2020-09-04 11:12] VITALS: BMI 18.9
[2020-09-04 12:41] LABS: Absolute Lymphocyte Count 1.11 X10^3/uL (0.83-4.51); Basophil# 0.06 X10^3/uL; Basophil% 0.8 % (0-1); Eosinophil# 0.22 X10^3/uL; Hematocrit 41.6 % (40-54); Hemoglobin 13.6 g/dL (13.0-16.5); Lymphocyte # 1.11 X10^3/ul (0.83-4.51); Lymphocyte % 15.1 % (19-41); Mean Corp Hgb Conc 32.7 g/dL (32-36); Mean Corpuscular Hgb 29.1 pg (27.0-32.0); Mean Corpuscular Volume 88.9 fL (80-94); Mean Platelet Vol. 10.6 fl (6.2-12.0); Monocyte# 0.94 X10^3/uL; Monocyte% 12.8 % (0-10); NRBC Flagged by Analyzer 0 % (0-5); Neutrophil % 67.8 % (47-70); Platelet Count 302 K/mm3 (150-450); RBC Distribution Width SD 42.1 fl (35.1-43.9); Red Blood Count 4.68 M/mm3 (4.6-6.2); White Blood Count 7.4 K/mm3 (4.4-11.0)
[2020-09-09 20:07] LABS: Alternaria tenuis 0.29 kU/L (Class 0/I); Aspergillus fumigatus 5.26 kU/L (Class IV); Bermuda Grass 0.49 kU/L (Class I); Birch 0.13 kU/L (Class 0/I); Cat Hair / Dander,Stand 0.93 kU/L (Class II); Cedar, Mountain 0.19 kU/L (Class 0/I); Cladosporium herbarum 0.12 kU/L (Class 0/I); Cockroach, American 0.84 kU/L (Class II); Cottonwood 0.17 kU/L (Class 0/I); Cytoplasmic Ab (C-ANCA) <1:20 titer (Neg:<1:20); D farinae Mite 2.92 kU/L (Class III); D pteronyssinus 2.13 kU/L (Class III); Dog Epithelia 1.07 kU/L (Class II); Elm, American White 0.17 kU/L (Class 0/I); Immunoglobulin E 998 IU/mL (6-495); Maple/Box Elder 0.14 kU/L (Class 0/I); Mulberry, White <0.10 kU/L (Class 0); Oak, White 0.13 kU/L (Class 0/I); Pecan 0.12 kU/L (Class 0/I); Penicillium Notatum 4.56 kU/L (Class IV); Pigweed, Rough <0.10 kU/L (Class 0); Russian Thistle 0.22 kU/L (Class 0/I); Sheep Sorrel 0.25 kU/L (Class 0/I); Sycamore, American 0.11 kU/L (Class 0/I); Timothy Grass 1.25 kU/L (Class II)
[2020-09-09 21:05] LABS: Mouse Urine <0.10 kU/L (Class 0)
[2020-09-09 21:06] LABS: Immunoglobulin E 1035 IU/mL (6-495); Perinuclear Ab (P-ANCA) <1:20 titer (Neg:<1:20)
== END ==
PROVIDERS: Referring Provider Internal Medicine Critical Care Medicine; Visit Provider Internal Medicine Critical Care Medicine
DX: J45.20 Mild intermittent asthma, uncomplicated (principal)
CPT/HCPCS: 36415; 82785; 85025; 86003; 86256

== ENCOUNTER → 2024-10-18 | Outpatient (CLI) | payer BC, SELFPAY ==
[2024-10-18 12:22] LABS: Absolute Lymphocyte Count 0.46 X10^3/uL (0.83-4.51); Absolute Neutrophil Count 3.9 X10^3/uL (2.0-7.7); Basophil# 0.03 X10^3/uL; Basophil% 0.6 % (0-1); Hematocrit 39.9 % (40-54); Hemoglobin 12.9 g/dL (13.0-16.5); Lymphocyte # 0.46 X10^3/ul (0.83-4.51); Lymphocyte % 9.3 % (19-41); Mean Corp Hgb Conc 32.3 g/dL (32-36); Mean Corpuscular Hgb 27.5 pg (27.0-32.0); Mean Corpuscular Volume 85.1 fL (80-94); Mean Platelet Vol. 11.5 fl (6.2-12.0); Monocyte# 0.37 X10^3/uL; Monocyte% 7.5 % (0-10); NRBC Flagged by Analyzer 0 % (0-5); Neutrophil # 3.94 X10^3/uL (2.7-7.7); Neutrophil % 80.2 % (47-70); POSITIVE DIFFERENTIAL YES; Platelet Count 205 K/mm3 (150-450); RBC Distribution Width CV 16.5 % (11.6-14.6); RBC Distribution Width SD 51.2 fl (35.1-43.9); Red Blood Count 4.69 M/mm3 (4.6-6.2); White Blood Count 4.9 K/mm3 (4.4-11.0)
[2024-10-18 12:46] LABS: ALB/GLOB Ratio 1.1 RATIO (0.9-2.4); AST(SGOT) 31 U/L (<=37); Alanine Aminotransfer ALT/SGPT 19 U/L (<=46); Albumin, Serum 3.9 g/dL (3.5-5.0); Alkaline Phosphatase 80 U/L (40-129); Anion Gap 9 (5-15); BUN 14 mg/dL (4-19); BUN/Creat Ratio 19.2 RATIO (10-20); Calcium,Total 8.9 mg/dL (7.6-11.0); Carbon Dioxide 24.7 mmol/L (21.0-32.0); Chloride 103 mmol/L (98-108); Creatinine, Serum 0.73 mg/dL (0.70-1.20); EST Glomerular Filtration Rate 112 (>60); Globulin 3.4 g/dL (2.2-4.2); Glucose 86 mg/dL (70-99); Potassium 4.5 mmol/L (3.3-5.1); Protein, Total 7.3 g/dL (5.9-8.4); Sodium Level 137 mmol/L (133-145); Total Bilirubin 0.33 mg/dL (0.00-1.30)
--- OUTSIDE RECORDS SUMMARY | 2024-10-18 14:44 | XMS RPT_ITS | CCD ---
Author Organization [facility] Care Team Providers Care Electrical Project Manager Name Role Phone JOSSELIN NOWAK Primary Care Physicia n CHIARA SINGH DO Attending Unavailable JOSSELIN NOWAK Primary Care Unava ilable JOSSELIN NOWAK Primary Care Unava ilable GRAEME WANG MD Attending Unavailable JOSSELIN REIS CNP Admitting Unavailable JOSSELIN REIS CNP Primary Care Unavailable JOSSELIN REIS CNP Attending Unavailable JASMINA MARCH MD Primary Care Unavailable JASMINA MARCH MD Attending Unavailable JASMINA MARCH MD Admitting Unavailable JASMINA MARCH MD Primary Care Unavailable JASMINA MARCH MD Attending Unavailable JASMINA MARCH MD Admitting Unavailable JOSSELIN REIS CNP Admitting Unavailable JOSSELIN REIS CNP Primary Care Unavailable JOSSELIN REIS CNP Consulting Unavailable JOSSELIN REIS CNP Attending Unavailable PROVIDER, UNKNOWN Consulting Unavailable PROVIDER, UNKNOWN Consulting Unavailable JASMINA MARCH MD Attending Unavailable JASMINA MARCH MD Admitting Unavailable JASMINA MARCH MD Primary Care Unavailable Coby Mcdonnell Attending Unavailable Care Physician, No Primary Primary Care Unava ilable Coby Mcdonnell Attending Unavailable Care Physician, No Primary Primary Care Unava ilable Andre Barnhart Attending Unavailable Andre Barnhart Referring Unavailable Care Physician, No Primary Primary Care Unava ilable Andre Barnhart Attending Unavailable Andre Barnhart Referring Unavailable Care Physician, No Primary Primary Care Unava ilable Josselin Reis Referring Unavailable Andre Barnhart Attending Unavailable Care Physician, No Primary Primary Care Unava ilable Allergies Allergy Classification Reported Allergen(s) Allergy Type Date of Onset Reaction(s) Facility Methotrexate (1 source) Methotrexate; Translations: [methotrexate] Drug Allergy [facility] (2 sources) Methotrexate; Translations: [methotrexate] Drug Allergy [facility] (1 source) Methotrexate Drug Allergy [facility] (1 source) Methotrexate Drug Allergy 07-01-2024 [facility] Medications Current Medications Medication Drug Class(es) Dates Sig (Normalized) Sig (Original) acetaminophen 325 mg oral tablet (3 sources) Start: 06-25-2017 Tylenol 325 mg oral tablet Dose : 650 mg = 2 tab(s), Oral, q4h, PRN Pain, scale 1-3, 0 Refill(s) Start Date: 06/25/17 Status: Ordered amoxicillin 875 mg / clavulanate 125 mg oral tablet (1 source) Penicillin-class Antibacterial Start: 04-12-2024 End: 04-19-2024 take 1 tablet by mouth every twelve hours amoxicillin-clav ulanate 875 mg-125 mg oral tablet 1 tab(s), Oral, q12h, X 7 day(s), # 14 tab(s), 0 Refill(s), 04/19/24 5:26:00 PM EST, 56.8 Start Date: 04/12/24 Stop Date: 04/19/24 Status: Ordered ascorbic acid 250 mg / folic acid 1 mg / iron carbonyl 100 mg / vitamin b12 0.025 mg oral tablet (3 sources) Vitamin B12, Vitamin C Start: 06-25-2017 take 1 tablet by mouth once daily Vitamin B Complex with C, Folic Acid, and Iron oral tablet * 1 mg Dose = 1 tab(s), Oral, qDay, 0 Refill(s) Start Date: 06/25/17 Status: Ordered melatonin 10 mg oral capsule (3 sources) Start: 06-04-2017 melatonin 10 mg oral capsule Dose : 10 mg = 1 cap(s), Oral, qHS, 0 Refill(s) Start Date: 06/04/17 Status: Ordered predniSONE 20 mg oral tablet (4 sources) Start: 04-12-2024 End: 04-19-2024 predniSONE 20 mg oral tablet Dose : 20 mg = 1 tab(s), Oral, qDay, Take with food, X 7 day(s), # 7 tab(s), 0 Refill(s), 04/19/24 5:27:00 PM EST Start Date: 04/12/24 Stop Date: 04/19/24 Status: Ordered Start: 06-04-2017 predniSONE 10 mg oral tablet Dose : 10 mg = 1 tab(s), Oral, qDay, # 10 tab(s), 0 Refill(s) Start Date: 06/04/17 Status: Ordered Vitamin C 1000 mg oral table t (3 sources) Start: 05-25-2017 Vitamin C 1000 mg oral tablet Dose : 1,000 mg = 1 tab(s), Oral, qDay, # 30 tab(s), 0 Refill(s) Start Date: 05/25/17 Status: Ordered Completed/Discontinued Medications Medication Drug Class(es) Dates Sig (Normalized) Sig (Original) guaiFENesin (3 sources) Start: 05-25-2017 End: 06-01-2017 take 1 tablet by mouth every twelve hours Mucinex DM 30 mg-600 mg oral tablet, extended release Dose = 1 tab(s), Oral, q12h, # 14 tab(s), 0 Refill(s) Start Date: 05/25/17 Stop Date: 06/01/17 Status: Ordered Problems Active Problems Problem Classification Problem Date Documented Da te Episodic/Chronic Abdominal pain (1 source) Abdominal pain; Translations: [Unspecified abdominal pain] Onset: 10-20-2023 Episodic Anxiety disorders (3 sources) Claustrophobia 05-25-2017 Chronic Chronic obstructive pulmonary disease and bronchiectasis (3 sources) Chronic obstructive lung disease 05-25-2017 Chronic Conditions associated with dizziness or vertigo (1 source) Dizziness and giddiness; Translations: [Dizziness and giddiness] Onset: 05-03-2024 Episodic Deficiency and other anemia (2 sources) Anemia, unspecified; Translations: [Anemia, unspecified] Onset: 07-01-2024 Episodic Diseases of white blood cells (2 sources) Decreased white blood cell count, unspecified; Translations: [Decreased white blood cell count, unspecified] Onset: 07-01-2024 Chronic Malaise and fatigue (1 source) Other fatigue; Translations: [Other fatigue] Onset: 05-03-2024 Episodic Open wounds of head; neck; and trunk (3 sources) Fracture of tooth 05-25-2017 Episodic Other connective tissue disease (1 source) Muscle pain; Translations: [Myalgia, other site] Onset: 10-20-2023 Episodic Other gastrointestinal disorders (3 sources) Diarrhea 05-25-2017 Episodic Comment on above: thinks due to curren t antibiotic Other lower respiratory disease (3 sources) Cough 05-25-2017 Episodic Comment on above: prod of green Other lower respiratory disease (3 sources) Lesion of lung 05-25-2017 Episodic Other nutritional; endocrine; and metabolic disorders (1 source) Abnormal weight loss; Translations: [Abnormal weight loss] Onset: 05-03-2024 Episodic Other skin disorders (3 sources) Eruption 05-25-2017 Episodic Comment on above: on left cheek, red a nd scaley, peeled off and now on right cheek Other upper respiratory infections (1 source) Acute pharyngitis; Translations: [Acute pharyngitis, unspecified] Onset: 04-12-2024 Episodic Rheumatoid arthritis and related disease (4 sources) Rheumatoid arthritis; Translations: [Rheumatoid arthritis, unspecified] Onset: 04-12-2024 05-25-2017 Chronic Screening and history of mental health and substance abuse codes (3 sources) Ex-cigarette smoker 05-25-2017 Episodic Unclassified (3 sources) Eye glasses, device (physical object) 05-25-2017 Past or Other Problems Problem Classification Problem Date Documented Da te Episodic/Chronic Other nutritional; endocrine; and metabolic disorders (3 sources) Weight decreased Onset: 05-25-2017 05-25-2017 Episodic Comment on above: 10# IN 6 WEEKS Results Test Name Value Interpretation Reference Range Facility CBC + DIFFon 07-19-2024 Baso # 0.04 x10EE3/UL Normal 0.00 - 0.10 [facility] Comment on above: Performed By: #### 2 [id number] #### [facility],[address] [place] [address] 29781 Basophils/100 WBC (Bld) 0.8 % Normal 0.0 - 2.0 [facility] Comment on above: Performed By: #### 2 45736 #### [facility],[address] [place] [address] CBC + DIFF Normal [facility] Comment on above: Result Comment: CBC- COMPLETE BLOOD COUNT Performed By: #### 2 96251 #### [facility],[address] [place] [address] EO # 0.12 x10EE3/UL Normal 0.00 - 0.50 [facility] Comment on above: Performed By: #### 2 67487 #### [facility],[address] [place] [address] Eosinophils/100 WBC (Bld) 2.4 % Normal 0.0 - 7.0 [facility] Comment on above: Performed By: #### 2 15048 #### [facility],[address] [place] [address] Erythrocyte distribution width (RBC) [Ratio] 15.6 % Normal 12.0 - 15.6 [facility] Comment on above: Performed By: #### 2 58169 #### [facility],[address] [place] [address] Hematocrit (Bld) [Volume fraction] 37.1 % Low 40.0 - 52.0 [facility] Comment on above: Performed By: #### 2 16238 #### [facility],[address] [place] [address] Hemoglobin (Bld) [Mass/Vol] 12.5 g/dL Low 13.0 - 17.5 [facility] Comment on above: Performed By: #### 2 86101 #### [facility],[address] [place], [place] [id number] Lymph # 0.70 x10EE3/UL Low 0.80 - 2.80 [facility] Comment on above: Performed By: #### 2 10762 #### [facility],[address] [place], [place] [id number] Lymphocytes/100 WBC (Bld) 14.4 % Low 20.0 - 45.0 [facility] Comment on above: Performed By: #### 2 12919 #### [facility],[address] [place] [address] MANUAL DIFF N/A Normal [facility] Comment on above: Performed By: #### 2 73034 #### [facility],[address] [place] [address] MCH (RBC) [Entitic mass] 28 pg Normal 27 - 33 [facility] Comment on above: Performed By: #### 2 54780 #### [facility],[address] [place] [address] MCHC 34 X10 3 Normal 32 - 36 [facility] Comment on above: Performed By: #### 2 02366 #### [facility],[address] [place] [address] MCV (RBC) [Entitic vol] 84 fL Normal 81 - 98 [facility] Comment on above: Performed By: #### 2 75784 #### [facility],[address] [place] [address] Zapata # 0.25 x10EE3/UL Normal 0.20 - 1.00 [facility] Comment on above: Performed By: #### 2 92327 #### [facility],[address] [place] [address] MONOS % 5.1 % Normal 0.0 - 10.0 [facility] Comment on above: Performed By: #### 2 88476 #### [facility],[address] [place] [address] Morphology Len (Bld) [Interp] N/A Normal [facility] Comment on above: Performed By: #### 2 04549 #### [facility],[address] [place] [address] Neut # 3.75 x10EE3/UL Normal 1.50 - 7.10 [facility] Comment on above: Performed By: #### 2 15761 #### [facility],[address] [place] [address] 24395 Neutrophils/100 WBC (Bld) 77.4 % High 46.0 - 76.0 [facility] Comment on above: Performed By: #### 2 39019 #### [facility],[address] [place] [address] 27020 PLATELET 325 x10EE3/UL Normal 150 - 450 [facility] Comment on above: Performed By: #### 2 22586 #### [facility],[address] [place] [address] 11675 Platelet mean volume (Bld) [Entitic vol] 7.9 fL Normal 6.4 - 10.5 [facility] Comment on above: Result Comment: AUTO MATED DIFFERENTIAL Performed By: #### 2 87558 #### [facility],[address] [place] [address] 98099 RBC 4.41 x 10EE6/UL Low 4.50 - 6.00 [facility] Comment on above: Performed By: #### 2 73711 #### [facility],[address] [place] [address] 70359 WBC 4.9 x 10EE3/UL Normal 4.5 - 10.8 [facility] Comment on above: Performed By: #### 2 00732 #### [facility],[address] [place] [address] 10575 CMP with eGFRon 07-19-2024 AGE 48 years Normal [facility] Comment on above: Performed By: #### 2 11811 #### [facility],[address] [place] [address] 05126 Albumin [Mass/Vol] 3.1 g/dL Low 3.4 - 5.0 [facility] Comment on above: Performed By: #### 2 73592 #### [facility],[address] [place] [address] 40520 Albumin/Globulin [Mass ratio] 0.7 {ratio} Low 0.9 - 1.6 [facility] Comment on above: Performed By: #### 2 88949 #### [facility],[address] [place] [address] 55323 ALK PHOS 71 U/L Normal 46 - 116 [facility] Comment on above: Performed By: #### 2 75020 #### [facility],[address] [place] [address] 05151 ALT [Catalytic activity/Vol] 20 U/L Normal 16 - 63 [facility] Comment on above: Performed By: #### 2 40644 #### [facility],[address] [place] [address] 40238 Anion gap [Moles/Vol] 13 mmol/L Normal 10 - 20 [facility] Comment on above: Performed By: #### 2 66363 #### [facility],[address] [place] [address] 96747 AST [Catalytic activity/Vol] 21 U/L Normal 15 - 37 [facility] Comment on above: Performed By: #### 2 98688 #### [facility],[address] [place] [address] 18276 B/C RATIO 6 ratio Normal 0 - 30 [facility] Comment on above: Performed By: #### 2 78257 #### [facility],[address] [place] [address] 37975 Bilirubin [Mass/Vol] 0.3 mg/dL Normal 0.2 - 1.0 [facility] Comment on above: Performed By: #### 2 02409 #### [facility],[address] [place] [address] 38086 Calcium [Mass/Vol] 9.2 mg/dL Normal 8.5 - 10.1 [facility] Comment on above: Performed By: #### 2 32801 #### [facility],[address] [place] [address] 84337 Chloride [Moles/Vol] 101 mmol/L Normal 98 - 107 [facility] Comment on above: Performed By: #### 2 50358 #### [facility],[address] [place] [address] 57643 CMP with eGFR Normal [facility] Comment on above: Result Comment: COMP REHENSIVE METABOLIC PANEL Performed By: #### 2 63806 #### [facility],[address] [place] [address] 25887 CO2 [Moles/Vol] 27.3 mmol/L Normal 21.0 - 32.0 [facility] Comment on above: Performed By: #### 2 37189 #### [facility],[address] [place] [address] 37847 Creatinine [Mass/Vol] 0.79 mg/dL Normal 0.70 - 1.30 [facility] Comment on above: Performed By: #### 2 67660 #### [facility],[address] [place] [address] 23684 GFR/1.73 sq M.predicted among non-blacks MDRD (S/P/Bld) [Vol rate/Area] mL/min/{1.73_m2} Normal 60 - 999 [facility] Comment on above: Performed By: #### 2 13079 #### [facility],[address] [place] [address] 54243 Result Comment: ACCO RDING TO THE NATIONAL KIDNEY DISEASE EDUCATION PROGRAM(NKDE), A NORMAL eGFR IS A VALUE GREATER THAN OR EQUAL TO 60 ML/MIN/1.73 SQ METERS. CHRONIC KIDNEY DISEASE: <60mL/MIN/1.73 SQ METERS KIDNEY FAILURE: <15mL/MIN/1.73 SQ METERS THIS TEST SHOULD ONLY BE USED FOR PATIENTS 18 YEARS OF AGE AND OLDER. Globulin (S) [Mass/Vol] 4.7 g/dL High 1.5 - 3.8 [facility] Comment on above: Performed By: #### 2 62202 #### [facility],[address] [place] [address] 53519 Glucose [Mass/Vol] 99 mg/dL Normal 74 - 106 [facility] Comment on above: Performed By: #### 2 90171 #### [facility],[address] [place] [address] 28576 Potassium [Moles/Vol] 4.7 mmol/L Normal 3.5 - 5.1 [facility] Comment on above: Performed By: #### 2 17894 #### [facility],[address] [place] [address] 83068 Protein [Mass/Vol] 7.8 g/dL Normal 6.4 - 8.2 [facility] Comment on above: Performed By: #### 2 65967 #### [facility],[address] [place] [address] 72549 Sodium [Moles/Vol] 137 mmol/L Normal 136 - 145 [facility] Comment on above: Performed By: #### 2 59147 #### [facility],[address] [place] [address] 67991 Urea nitrogen [Mass/Vol] 5 mg/dL Low 7 - 18 [facility] Comment on above: Performed By: #### 2 02292 #### [address] [address] CBC W/Diff, Automatedon 06-15 Absolute Lymph 0.69 X10 3/uL Low 0.83-4.51 [facility] Comment on above: Performed By: #### L 506.0250, L503.0105, L500.4050, L100.0100, L503.6030, L100.9950, L503.6550 #### [facility] [address] [place] [address], [address] Absolute Neut 5.6 X10 3/uL Normal 2.0-7.7 [facility] Comment on above: Performed By: #### L 506.0250, L503.0105, L500.4050, L100.0100, L503.6030, L100.9950, L503.6550 #### [facility] [address] [place], [address] Basophils/100 WBC (Bld) 0.4 % Normal 0-1 [facility] Comment on above: Performed By: #### L 506.0250, L503.0105, L500.4050, L100.0100, L503.6030, L100.9950, L503.6550 #### [facility] [address] [place], [address] Eosinophils/100 WBC (Bld) 2.0 % Normal 0-5 [facility] Comment on above: Performed By: #### L 506.0250, L503.0105, L500.4050, L100.0100, L503.6030, L100.9950, L503.6550 #### [facility] [address] [place], [address] Erythrocyte distribution width (RBC) [Ratio] 14.8 % High 11.6-14.6 [facility] Comment on above: Performed By: #### L 506.0250, L503.0105, L500.4050, L100.0100, L503.6030, L100.9950, L503.6550 #### [facility] [address] [place], [address] Hematocrit (Bld) [Volume fraction] 38.2 % Low 40-54 [facility] Comment on above: Performed By: #### L 506.0250, L503.0105, L500.4050, L100.0100, L503.6030, L100.9950, L503.6550 #### [facility] [address] [place], [address] Hemoglobin (Bld) [Mass/Vol] 12.1 g/dL Low 13.0-16.5 [facility] Comment on above: Performed By: #### L 506.0250, L503.0105, L500.4050, L100.0100, L503.6030, L100.9950, L503.6550 #### [facility] [address] [place], [address] IG% 0.300 Normal 0.0-0.9 [facility] Comment on above: Result Comment: IG% - Immature Granulocytes (promyelocytes, myelocytes and metamyelocytes) > 1% indicates that a LEFT SHIFT is Present. Performed By: #### L 506.0250, L503.0105, L500.4050, L100.0100, L503.6030, L100.9950, L503.6550 #### [facility] [address] [facility] [place], [address] Lymphocytes/100 WBC (Bld) 10.0 % Low 19-41 [facility] Comment on above: Performed By: #### L 506.0250, L503.0105, L500.4050, L100.0100, L503.6030, L100.9950, L503.6550 #### [facility] [address] [place], [address] MCH (RBC) [Entitic mass] 26.9 pg Low 27.0-32.0 [facility] Comment on above: Performed By: #### L 506.0250, L503.0105, L500.4050, L100.0100, L503.6030, L100.9950, L503.6550 #### [facility] [address] [place], [address] MCHC (RBC) [Mass/Vol] 31.7 g/dL Low 32-36 [facility] Comment on above: Performed By: #### L 506.0250, L503.0105, L500.4050, L100.0100, L503.6030, L100.9950, L503.6550 #### [facility] [address], [address] MCV (RBC) [Entitic vol] 85.1 fL Normal 80-94 [facility] Comment on above: Performed By: #### L 506.0250, L503.0105, L500.4050, L100.0100, L503.6030, L100.9950, L503.6550 #### [facility] [address] [place], [address] Monocytes/100 WBC (Bld) 6.3 % Normal 0-10 [facility] Comment on above: Performed By: #### L 506.0250, L503.0105, L500.4050, L100.0100, L503.6030, L100.9950, L503.6550 #### [facility] [address] [place], [address] Neutrophils/100 WBC (Bld) 81.0 % High 47-70 [facility] Comment on above: Performed By: #### L 506.0250, L503.0105, L500.4050, L100.0100, L503.6030, L100.9950, L503.6550 #### [facility] [address] [place], [address] Nucleated RBC (Bld) [#/Vol] 0 10*3/uL Normal 0-5 [facility] Comment on above: Performed By: #### L 506.0250, L503.0105, L500.4050, L100.0100, L503.6030, L100.9950, L503.6550 #### [facility] [address] [place], [address] Platelet mean volume (Bld) [Entitic vol] 9.6 fL Normal 6.2-12.0 [facility] Comment on above: Performed By: #### L 506.0250, L503.0105, L500.4050, L100.0100, L503.6030, L100.9950, L503.6550 #### [facility] [address] [place], [address] Platelets (Bld) [#/Vol] 335 10*3/uL Normal 150-450 [facility] Comment on above: Performed By: #### L 506.0250, L503.0105, L500.4050, L100.0100, L503.6030, L100.9950, L503.6550 #### [facility] [address] [place], [address] RBC (Bld) [#/Vol] 4.49 10*6/uL Low 4.6-6.2 [facility] Comment on above: Performed By: #### L 506.0250, L503.0105, L500.4050, L100.0100, L503.6030, L100.9950, L503.6550 #### [facility] [address] [place], [address] RDW SD 45.3 fl High 35.1-43.9 [facility] Comment on above: Performed By: #### L 506.0250, L503.0105, L500.4050, L100.0100, L503.6030, L100.9950, L503.6550 #### [facility] [address] [place], [address] WBC (Bld) [#/Vol] 6.9 10*3/uL Normal 4.4-11.0 [place] Comment on above: Performed By: #### L 506.0250, L503.0105, L500.4050, L100.0100, L503.6030, L100.9950, L503.6550 #### [facility] [address] [place], [address] Comprehensive Metabolic Prof [facility] 07-01-2024 Albumin [Mass/Vol] 2.9 g/dL Low 3.2-5.0 [place] Comment on above: Order Comment: UNK Performed By: #### L 506.0250, L503.0105, L500.4050, L100.0100, L503.6030, L100.9950, L503.6550 #### [facility] [address] [place], [address] Albumin/Globulin [Mass ratio] 0.6 {ratio} Low 0.9-2.4 [facility] Comment on above: Order Comment: UNK Performed By: #### L 506.0250, L503.0105, L500.4050, L100.0100, L503.6030, L100.9950, L503.6550 #### [facility] [address] [place], [address] ALK P 76 U/L Normal 45-117 [facility] Comment on above: Order Comment: UNK Performed By: #### L 506.0250, L503.0105, L500.4050, L100.0100, L503.6030, L100.9950, L503.6550 #### [facility] [address] [place], [address] ALT [Catalytic activity/Vol] 21 U/L Normal 16-61 [facility] Comment on above: Order Comment: UNK Performed By: #### L 506.0250, L503.0105, L500.4050, L100.0100, L503.6030, L100.9950, L503.6550 #### [facility] [address] [place], [address] AST [Catalytic activity/Vol] 21 U/L Normal 15-37 [facility] Comment on above: Order Comment: UNK Performed By: #### L 506.0250, L503.0105, L500.4050, L100.0100, L503.6030, L100.9950, L503.6550 #### [facility] [address] [place], [address] Bilirubin [Mass/Vol] 0.30 mg/dL Normal 0.20-1.[address] [facility] Comment on above: Order Comment: UNK Result Comment: For patients on eltrombopag therapy, use of Dimension [employer]crombie TBIL is not recommended. Performed By: #### L 506.0250, L503.0105, L500.4050, L100.0100, L503.6030, L100.9950, L503.6550 #### [facility] [address] [place], [address] BUN/CRE 9.2 RATIO Low 10-20 [facility] Comment on above: Order Comment: UNK Performed By: #### L 506.0250, L503.0105, L500.4050, L100.0100, L503.6030, L100.9950, L503.6550 #### [facility] [address] [place], [address] CA,Total 9.4 mg/dL Normal 8.5-10.1 [facility] Comment on above: Order Comment: UNK Performed By: #### L 506.0250, L503.0105, L500.4050, L100.0100, L503.6030, L100.9950, L503.6550 #### [facility] [address] [place], [address] Chloride [Moles/Vol] 102 mmol/L Normal 98-[address] [facility] Comment on above: Order Comment: UNK Performed By: #### L 506.0250, L503.0105, L500.4050, L100.0100, L503.6030, L100.9950, L503.6550 #### [facility] [address] [place], [address] CO2 [Moles/Vol] 31.0 mmol/L Normal 21.0-32.0 [facility] Comment on above: Order Comment: UNK Performed By: #### L 506.0250, L503.0105, L500.4050, L100.0100, L503.6030, L100.9950, L503.6550 #### [facility] [address] [place], [place], [id number] (877) Creatinine [Mass/Vol] 0.76 mg/dL Normal 0.70-1.30 [facility] Comment on above: Order Comment: UNK Result Comment: The validity of the calculated GFR GFRAA in patients over 70 years has not been determined. Clinical correlation is essential. Performed By: #### L 506.0250, L503.0105, L500.4050, L100.0100, L503.6030, L100.9950, L503.6550 #### [facility] [address] [address] [place], [place], [id number] (490) EST GFR - AA 141 mL/min Normal >60 [facility] Comment on above: Order Comment: UNK Result Comment: Afri can Anguillan GFR Calc Performed By: #### L 506.0250, L503.0105, L500.4050, L100.0100, L503.6030, L100.9950, L503.6550 #### [facility] [address] [place], [place], [id number] (486) GAP 5 Normal 5-15 [facility] Comment on above: Order Comment: UNK Performed By: #### L 506.0250, L503.0105, L500.4050, L100.0100, L503.6030, L100.9950, L503.6550 #### [facility] [address] [place], [address] GFR/1.73 sq M.predicted among non-blacks MDRD (S/P/Bld) [Vol rate/Area] 116 mL/min/{1.73_m2} Normal >60 [facility] Comment on above: Order Comment: UNK Result Comment: Non- GFR Calc Performed By: #### L 506.0250, L503.0105, L500.4050, L100.0100, L503.6030, L100.9950, L503.6550 #### [facility] [address] [place], [address] Globulin (S) [Mass/Vol] 4.8 g/dL High 2.2-4.2 [facility] Comment on above: Order Comment: UNK Performed By: #### L 506.0250, L503.0105, L500.4050, L100.0100, L503.6030, L100.9950, L503.6550 #### [facility] [address] [place], [address] Glucose [Mass/Vol] 90 mg/dL Normal 74-106 [place] Comment on above: Order Comment: UNK Performed By: #### L 506.0250, L503.0105, L500.4050, L100.0100, L503.6030, L100.9950, L503.6550 #### [facility] [address] [place], [address] Potassium [Moles/Vol] 4.0 mmol/L Normal 3.5-5.1 [facility] Comment on above: Order Comment: UNK Performed By: #### L 506.0250, L503.0105, L500.4050, L100.0100, L503.6030, L100.9950, L503.6550 #### [facility] [address] [place], [address] Sodium [Moles/Vol] 138 mmol/L Normal 136-145 [place] Comment on above: Order Comment: UNK Performed By: #### L 506.0250, L503.0105, L500.4050, L100.0100, L503.6030, L100.9950, L503.6550 #### [facility] [address] [place], [address] T PROT 7.7 g/dL Normal 6.4-8.2 [facility] Comment on above: Order Comment: UNK Performed By: #### L 506.0250, L503.0105, L500.4050, L100.0100, L503.6030, L100.9950, L503.6550 #### [facility] [address] [place], [address] Urea nitrogen [Mass/Vol] 7 mg/dL Normal 7-18 [facility] Comment on above: Order Comment: UNK Performed By: #### L 506.0250, L503.0105, L500.4050, L100.0100, L503.6030, L100.9950, L503.6550 #### [facility] [address] [place], [place], [phone] (236) Ferritinon 07-01-2024 Ferritin [Mass/Vol] 395 ng/mL High 26-388 [facility] Comment on above: Performed By: #### L 506.0250, L503.0105, L500.4050, L100.0100, L503.6030, L100.9950, L503.6550 #### [facility] [address] [place], [place], [id number] Folates, (Folic Acid)on 06-15 FOLATES 4.30 ng/mL Normal 3.1-55.4 [facility] Comment on above: Order Comment: UNK N Performed By: #### L 506.0250, L503.0105, L500.4050, L100.0100, L503.6030, L100.9950, L503.6550 #### [facility] [address] [place], [place], [phone] (783) Iron+Iron Binding Capacityon 02-17-2025 Iron [Mass/Vol] 49 ug/dL Low 65-175 [facility] Comment on above: Order Comment: UNK Performed By: #### L 506.0250, L503.0105, L500.4050, L100.0100, L503.6030, L100.9950, L503.6550 #### [facility] [address] [place], [address] IRON SATURATION 18.4 Normal 15.0-55.0 [facility] Comment on above: Order Comment: UNK Performed By: #### L 506.0250, L503.0105, L500.4050, L100.0100, L503.6030, L100.9950, L503.6550 #### [facility] [address] [place], [address] TIBC 266 ug/dL Normal 250-450 [facility] Comment on above: Order Comment: UNK Performed By: #### L 506.0250, L503.0105, L500.4050, L100.0100, L503.6030, L100.9950, L503.6550 #### [facility] [address] [facility] [place], [address] Oncology Visit Reporton 06-15 Oncology Visit Report [facility] [address] [place] [address]. [place] [address] OFFICE VISIT Date of Service: 07/01/24 1458 MR#: [id number] Acct: [id number] Name: CHARLIE ESTES . Rep #: [id number] : 1975 From: Andre Barnhart MD Age/Sex: 48/M Location: [facility] [place] [place] Status: Signed HPI Subjective Date of Service 07/01/24 Chief Complaint Fatigue, weight loss History of Present Illness Patient was referred for hematology consultation due to low blood counts. Patient reports that his main problem is fatigue and weight loss despite a preserved appetite. See lab section for escrow representative blood counts which are notable for a mild normocytic anemia and mild leukopenia with preserved neutrophil count and a normal platelet count. Patient's medical history notable for rheumatoid arthritis for almost 10 years on various biologic therapies, history of pulmonary aspergillosis status post right upper lobectomy and antifungal therapy and last follow-up in pulmonary clinic was in [address] scan of the chest was in 2019. He is an ex-smoker quit around 2018. [facility] Medical History (Updated 07/01/24 @ 15:[address] Andre Barnhart MD) Leukopenia Anemia Rheumatoid arthritis History of pulmonary aspergillosis Rheumatoid arthritis Pneumonia Arthralgia Surgical History History of lung surgery Family History Brother Diabetes Father Hypertension Heart disease Uncle Diabetes Grandfather Diabetes Mother Hypertension Aunt Asthma Social History (Updated 07/01/24 @ 15:06 by Coby Mcdonnell) household members: spouse housing: other details: mobile home current occupational status: employed current occupation: [employer] pets and animals: Yes pets and animals: cat(s), dog(s), fish, snake(s) and turtle(s) Smoking Status: Former smoker quit date: 05/15/16 pack-years: 14 Tobacco: How many years used: 28 Smokeless tobacco user: chewing tobacco second hand exposure: No alcohol intake: never substance use type: does not use ROS Constitutional Constitutional: Reports systems reviewed and no addt'l complaints, except as documented, fatigue, weight loss and other Details: According to the patient's he went down 3 sizes of closing in the course of the past 6 months or so. 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 ; Denies anorexia or fever(s) Eyes Eyes: Reports systems reviewed and no addt'l complaints, except as documented ENT HEENT: Reports systems reviewed and no addt'l complaints, except as documented, nasal discharge and post nasal drip; Denies mouth lesions Cardiovascular Cardiovascular: Reports systems reviewed and no addt'l complaints, except as documented; Denies chest pain or edema Respiratory/Chest Respiratory/Chest: Reports cough; Denies dyspnea or hemoptysis Gastrointestinal Gastrointestinal: Reports systems reviewed and no addt'l complaints, except as documented; Denies change in bowel habits, dysphagia, hematochezia or melena Genitourinary Genitourinary: Reports systems reviewed and no addt'l complaints, except as documented and urinary frequency; Denies hematuria Musculoskeletal Musculoskeletal: Reports systems reviewed and no addt'l complaints, except as documented; Denies back pain Integumentary Integumentary: Reports systems reviewed and no addt'l complaints, except as documented; Denies new lesions Neurologic Neurologic: Reports systems reviewed and no addt'l complaints, except as documented; Denies focal weakness or paresthesias Psychiatric Psychiatric: Reports systems reviewed and no addt'l complaints, except as documented Endocrine Endocrinology: Reports systems reviewed and no addt'l complaints, except as documented Hematologic/Lymphat ic Hematologic/Lymphat ic: Reports systems reviewed and no addt'l complaints, except as documented Allergic/Immunologi c Allergic/Immunologi c: Reports systems reviewed and no addt'l complaints, except as documented Intake Vital Signs 07/01/24 15:00 07/01/24 15:07 Height 5 ft 9.5 in 5 ft 9.5 in Weight: 56.302 kg BMI 18.0 BP 149/96 H Blood Pressure Location Lt brachial Position Sitting Respiration 16 Pulse 115 H Pulse Source Monitor Temp 99.1 F Temperature Source Temporal Artery Pulse Oximetry (%) 95 Oxygen Delivery Method room air Intake Is patient in pain?: Yes (arthritic pain throughout whole body ) Pain scale (1-10): 3 Allergies methotrexate Adverse Reaction (Intermediate, Verified 07/01/24 15:02) Hives Rash Medications ???Medication ???Instructions ???Recorded ???Confirmed ???Type meloxicam 15 mg tablet 15 mg PO DAILY PRN 02/26/18 History cetirizine 10 mg (more content not included)... Normal [facility] Retic Panelon 07-01-2024 IM RET FRACTION 14.50 Normal 3.00-15.90 [facility] Comment on above: Performed By: #### L 506.0250, L503.0105, L500.4050, L100.0100, L503.6030, L100.9950, L503.6550 #### [facility] [address] [place], [address] RET-HE 29.8 pg Low 30-35 [facility] Comment on above: Performed By: #### L 506.0250, L503.0105, L500.4050, L100.0100, L503.6030, L100.9950, L503.6550 #### [facility] [address] [place], [address] Retic Count 1.07 Normal 0.5-1.5 [facility] Comment on above: Performed By: #### L 506.0250, L503.0105, L500.4050, L100.0100, L503.6030, L100.9950, L503.6550 #### [facility] [address] [place], [address] Vitamin B12on 07-01-2024 Cobalamin (Vitamin B12) [Mass/Vol] 1035 pg/mL High 211-911 [facility] Comment on above: Performed By: #### L 506.0250, L503.0105, L500.4050, L100.0100, L503.6030, L100.9950, L503.6550 #### [facility] [address] [place], [place], [address] CT ABDOMEN/PELVIS Won 2024 CT ABDOMEN/PELVIS [place] [address] Patient: CHARLIE ESTES Phone#: : 1975 Age: 48 Gender: M Pt. Type: Out Account: [id number] Location: [facility] Ordering: JOSSELIN REIS Exam Date: 05/31/2024/16:04 Family Phys: Charge Code: 710303 Physician: [place] Order #: [id number] Dose#: 4.20 PROCEDURE: CT ABDOMEN/PELVIS WITH CONTRAST COMPARISON: [facility], CT, CHEST PE W CON, 06/04/2017, 13:56. [facility], CT, CHEST PE W CON, 07/09/2017, 23:32. INDICATIONS: Pancytopenia. TECHNIQUE: After obtaining the patient's consent, CT images were created with non-ionic intravenous contrast and oral contrast material. All CT scans at this facility use dose modulation, iterative reconstruction, and/or weight based dosing when appropriate to reduce radiation dose to as low as reasonably achievable. IV CONTRAST: Omnipaque 350,80ml TOTAL DOSE: 4.20 CTDIvol(mGy) FINDINGS: LIVER: Normal. No enlargement, atrophy, abnormal density, or significant focal lesion. BILIARY: Gallbladder is present and contracted PANCREAS: Normal. No lesion, fluid collection, ductal dilatation, or atrophy. SPLEEN: Normal. No enlargement or focal lesion. Spleen is unremarkable in size measures 11.7 x 8.1 x 3.4 cm KIDNEYS: Kidneys enhance and excrete contrast symmetrically. No hydronephrosis. There is a left upper pole renal cyst measuring 1.6 x 1.5 cm. Nonobstructing right nephrolithiasis measuring 0.4 cm. ADRENALS: Normal. No mass or enlargement. AORTA/VASCULAR: No aortic aneurysm. The origin of the celiac artery is unremarkable. The superior mesenteric artery angle is 11.6. There is narrowing of the left renal vein as it passes between the superior mesenteric artery and aorta. The compression ratio measures 3.7 (pre compressed vein 1.1 cm divided by compressed vein 0.3 cm). RETROPERITONEUM: Normal. No mass or adenopathy. BOWEL/MESENTERY: No bowel obstruction or dilatation. Oral contrast is seen in the stomach, small and large bowel and reaches the splenic flexure. There is large stool burden Continued Report - Page 2 of 2 Patient: CHARLIE ESTES Phone#: : 1975 Age: 48 Gender: M Pt. Type: Out Account: [id number] Location: 052 Ordering: JOSSELIN REIS Exam Date: 05/31/2024/16:04 Family Phys: Charge Code: [id number] Physician: [place] Order #: [id number] Dose#: 4.20 throughout the colon. The visualized portion of the appendix is unremarkable and contains air. ABDOMINAL WALL: Normal. No mass or hernia. URINARY BLADDER: Partially filled. PELVIC NODES: Normal. No adenopathy. PELVIC ORGANS: Normal. No visible mass. Pelvic organs appropriate for patient age. BONES: Subacute to chronic nondisplaced left 9th rib fracture, series 2, image 23. LUNG BASES: Normal. No visible pulmonary or pleural disease. OTHER: Negative. CONCLUSION: 1. Constipation 2. Nonobstructing right nephrolithiasis Dictated by: Melodie Vinson MD on 05/31/2024 at 16:58 Approved by: Melodie Vinson MD on 05/31/2024 at 17:24 Normal [facility] CK ISOENZYMES [CCL]on 2023 CK [Catalytic activity/Vol] 23 U/L Low 39-308 [facility] Comment on above: Result Comment: REFE RENCE INTERVAL: CK Total Access complete set of age- and/or gender-specific reference intervals for this test in the [facility] Test Directory ([employer]). Performed By: #### 2 59873 #### [place] [id number] CK BB Isoenzyme 0 % Normal 0-0 [facility] Comment on above: Result Comment: The electrophoretic method is imprecise when used on specimens with total CK values <73 U/L. Isoenzyme results must be interpreted with caution. Performed By: #### 2 28870 #### [address] [address] CK MACRO TYPE I 0 % Normal 0-0 [facility] Comment on above: Performed By: #### 2 21184 #### [address] [address] CK MACRO TYPE II 0 % Normal 0-0 [facility] Comment on above: Result Comment: Perf ormed By: [employer] [address] [place] [address] Staff Nurse [employer] Resource Team: Leonardo Oleary MD, PhD CLIA Number: [id number] [place] [address] Rafael Phillip III, M.D. [id number] Performed By: #### 2 77377 #### [facility],[address] [place] [address] CK MB Isoenzyme 0 % Normal 0-4 [facility] Comment on above: Performed By: #### 2 96750 #### [facility],[address] [place] [address] CK MM Isoenzyme 100 % Normal 96-100 [facility] Comment on above: Performed By: #### 2 25672 #### [facility],[address] [place] [address] 266[address] CBC + DIFFon 05-03-2024 Baso # 0.02 x10EE3/UL Normal 0.00 - 0.10 [facility] Comment on above: Performed By: #### 2 87161 #### [facility],[address] [place] [address]67 Basophils/100 WBC (Bld) 0.5 % Normal 0.0 - 2.0 [facility] Comment on above: Performed By: #### 2 95356 #### [facility],[address] [place] [address] 32788 CBC + DIFF Normal [facility] Comment on above: Result Comment: CBC- COMPLETE BLOOD COUNT Performed By: #### 2 68705 #### [facility],[address] [place] [address] EO # 0.07 x10EE3/UL Normal 0.00 - 0.50 [facility] Comment on above: Performed By: #### 2 59424 #### [facility],[address] [place] [address] Eosinophils/100 WBC (Bld) 1.9 % Normal 0.0 - 7.0 [facility] Comment on above: Performed By: #### 2 88891 #### [facility],[address] [place] [address] Erythrocyte distribution width (RBC) [Ratio] 14.3 % Normal 12.0 - 15.6 [facility] Comment on above: Performed By: #### 2 38361 #### [facility],[address] [place] [address] Hematocrit (Bld) [Volume fraction] 36.4 % Low 40.0 - 52.0 [facility] Comment on above: Performed By: #### 2 34297 #### [facility],[address] [place] [address] Hemoglobin (Bld) [Mass/Vol] 12.0 g/dL Low 13.0 - 17.5 [facility] Comment on above: Performed By: #### 2 30965 #### [facility],[address] [place] [address] Lymph # 0.87 x10EE3/UL Normal 0.80 - 2.80 [facility] Comment on above: Performed By: #### 2 39070 #### [facility],[address] [place] [address] Lymphocytes/100 WBC (Bld) 22.2 % Normal 20.0 - 45.0 [facility] Comment on above: Performed By: #### 2 76096 #### [facility],[address] [place] [address] MANUAL DIFF N/A Normal [facility] Comment on above: Performed By: #### 2 94481 #### [facility],[address] [place] [address] MCH (RBC) [Entitic mass] 28 pg Normal 27 - 33 [facility] Comment on above: Performed By: #### 2 65138 #### [facility],[address] [place], [place] [address] MCHC 33 X10 3 Normal 32 - 36 [facility] Comment on above: Performed By: #### 2 58484 #### [facility],[address] [place], [place] [address] MCV (RBC) [Entitic vol] 85 fL Normal 81 - 98 [facility] Comment on above: Performed By: #### 2 47327 #### [facility],[address] [place] [address] Zapata # 0.20 x10EE3/UL Normal 0.20 - 1.00 [facility] Comment on above: Performed By: #### 2 91602 #### [facility],[address] [place] [address] MONOS % 5.2 % Normal 0.0 - 10.0 [facility] Comment on above: Performed By: #### 2 19732 #### [facility],[address] [place] [address] Morphology Len (Bld) [Interp] N/A Normal [facility] Comment on above: Performed By: #### 2 84302 #### [facility],[address] [place] [address] Neut # 2.74 x10EE3/UL Normal 1.50 - 7.10 [facility] Comment on above: Performed By: #### 2 78918 #### [facility],[address] [place] [address] Neutrophils/100 WBC (Bld) 70.3 % Normal 46.0 - 76.0 [facility] Comment on above: Performed By: #### 2 70426 #### [facility],[address] [place] [address] PLATELET 261 x10EE3/UL Normal 150 - 450 [facility] Comment on above: Performed By: #### 2 71865 #### [facility],[address] [place] [address] Platelet mean volume (Bld) [Entitic vol] 8.1 fL Normal 6.4 - 10.5 [facility] Comment on above: Result Comment: AUTO MATED DIFFERENTIAL Performed By: #### 2 37612 #### [facility],[address] [place], [place] [address] RBC 4.28 x 10EE6/UL Low 4.50 - 6.00 [facility] Comment on above: Performed By: #### 2 38697 #### [facility],[address] [place] [address] WBC 3.9 x 10EE3/UL Low 4.5 - 10.8 [facility] Comment on above: Performed By: #### 2 74606 #### [facility],[address] [place] [address] CK FRAC BY ELECTROPHon 05-03 CK BB 0 % Normal 0-0 [facility] Comment on above: Order Comment: Speci men Type: BLOOD SPECIMEN Ordering Facility: [facility] Address: [address] [place] [address] Result Comment: The electrophoretic method is imprecise when used on specimens with total CK values <73 U/L. Isoenzyme results must be interpreted with caution. Performed By: #### C KISO #### [facility] CLIA [id number] [address] [place] [address] CK MACOR TYPE II 0 % Normal 0-0 [facility] Comment on above: Order Comment: Speci men Type: BLOOD SPECIMEN Ordering Facility: [facility] Address: [address] [place] [address] Result Comment: Perf ormed By: [facility] [address] [place] [address] Staff Nurse [employer] Resource Team: Leonardo Oleary MD, PhD CLIA Number: [id number] Performed By: #### C KISO #### [facility] CLIA [id number] [address] [place] [address] CK MACRO TYPE I 0 % Normal 0-0 [facility] Comment on above: Order Comment: Speci men Type: BLOOD SPECIMEN Ordering Facility: [facility] Address: [address] [place] [address] Performed By: #### C KISO #### [facility] CLIA [id number] [address] [place] [address] CK MB 0 % Normal 0-4 [facility] Comment on above: Order Comment: Speci men Type: BLOOD SPECIMEN Ordering Facility: [facility] Address: [address] [place] [address] Performed By: #### C KISO #### [facility] CLIA [id number] [address] [place] [address] CK MM 100 % Normal 96-100 [facility] Comment on above: Order Comment: Speci men Type: BLOOD SPECIMEN Ordering Facility: [facility] Address: [address] [place] [address] Performed By: #### C KISO #### [facility] CLIA [id number] [address] [place] [address] CK TOTAL (CKISO) 23 U/L Low 39-308 [facility] Comment on above: Order Comment: Speci men Type: BLOOD SPECIMEN Ordering Facility: [facility] Address: [address] [place] [address] Result Comment: REFE RENCE INTERVAL: CK Total Access complete set of age- and/or gender-specific reference intervals for this test in the [facility] Test Directory ([employer]). Performed By: #### C PHILLIPSO #### [facility] CLIA [id number] [address] [place] [address] CMP with eGFRon 05-03-2024 AGE 48 years Normal [facility] Comment on above: Performed By: #### 2 74249 #### [facility],[address] [place] [address] 470[address] Albumin [Mass/Vol] 2.7 g/dL Low 3.4 - 5.0 [facility] Comment on above: Performed By: #### 2 12739 #### [facility],[address] [place] [address]65 Albumin/Globulin [Mass ratio] 0.6 {ratio} Low 0.9 - 1.6 [facility] Comment on above: Performed By: #### 2 84614 #### [facility],[address] [place] [address] 80591 ALK PHOS 65 U/L Normal 46 - 116 [facility] Comment on above: Performed By: #### 2 61896 #### [facility],[address] [place] [address] 30463 ALT [Catalytic activity/Vol] 22 U/L Normal 16 - 63 [facility] Comment on above: Performed By: #### 2 14239 #### [facility],[address] [place] [address] 17471 Anion gap [Moles/Vol] 9 mmol/L Low 10 - 20 [facility] Comment on above: Performed By: #### 2 53059 #### [facility],[address] [place] [address] 11614 AST [Catalytic activity/Vol] 20 U/L Normal 15 - 37 [facility] Comment on above: Performed By: #### 2 22627 #### [facility],[address] [place] [address] 75995 B/C RATIO 14 ratio Normal 0 - 30 [facility] Comment on above: Performed By: #### 2 61782 #### [facility],[address] [place] [address] 70123 Bilirubin [Mass/Vol] 0.3 mg/dL Normal 0.2 - 1.0 [facility] Comment on above: Performed By: #### 2 70904 #### [facility],[address] [place] [address] 75760 Calcium [Mass/Vol] 8.5 mg/dL Normal 8.5 - 10.1 [facility] Comment on above: Performed By: #### 2 08847 #### [facility],[address] [place] [address] 94897 Chloride [Moles/Vol] 105 mmol/L Normal 98 - 107 [facility] Comment on above: Performed By: #### 2 25138 #### [facility],[address] [place] [address] 10311 CMP with eGFR Normal [facility] Comment on above: Result Comment: COMP REHENSIVE METABOLIC PANEL Performed By: #### 2 00503 #### [facility],[address] [place] [address] 47418 CO2 [Moles/Vol] 30.4 mmol/L Normal 21.0 - 32.0 [facility] Comment on above: Performed By: #### 2 59040 #### [facility],[address] [place] [address] 62523 Creatinine [Mass/Vol] 0.71 mg/dL Normal 0.70 - 1.30 [facility] Comment on above: Performed By: #### 2 01008 #### [facility],[address] [place] [address] 26567 GFR/1.73 sq M.predicted among non-blacks MDRD (S/P/Bld) [Vol rate/Area] mL/min/{1.73_m2} Normal 60 - 999 [facility] Comment on above: Performed By: #### 2 35748 #### [facility],[address] [place] [address] 48700 Result Comment: ACCO RDING TO THE NATIONAL KIDNEY DISEASE EDUCATION PROGRAM(NKDE), A NORMAL eGFR IS A VALUE GREATER THAN OR EQUAL TO 60 ML/MIN/1.73 SQ METERS. CHRONIC KIDNEY DISEASE: <60mL/MIN/1.73 SQ METERS KIDNEY FAILURE: <15mL/MIN/1.73 SQ METERS THIS TEST SHOULD ONLY BE USED FOR PATIENTS 18 YEARS OF AGE AND OLDER. Globulin (S) [Mass/Vol] 4.3 g/dL High 1.5 - 3.8 [facility] Comment on above: Performed By: #### 2 91487 #### [facility],[address] [place] [address] 60903 Glucose [Mass/Vol] 123 mg/dL High 74 - 106 [facility] Comment on above: Performed By: #### 2 09527 #### [facility],[address] [place] [address] 80501 Potassium [Moles/Vol] 4.1 mmol/L Normal 3.5 - 5.1 [facility] Comment on above: Performed By: #### 2 24943 #### [facility],[address] [place] [address] 00710 Protein [Mass/Vol] 7.0 g/dL Normal 6.4 - 8.2 [facility] Comment on above: Performed By: #### 2 60768 #### [facility],[address] [place] [address] 37316 Sodium [Moles/Vol] 140 mmol/L Normal 136 - 145 [facility] Comment on above: Performed By: #### 2 39192 #### [place] [id number] Urea nitrogen [Mass/Vol] 10 mg/dL Normal 7 - 18 [facility] Comment on above: Performed By: #### 2 53543 #### [place] [id number] CULTURE BLOOD [TRAMAINE]on Microscopic examination of blood, culture CULTURE BLOOD [TRAMAINE] _BLOOD CULTURE_ GO TO [employer] REPORTS AND ATTACHMENTS FOR SCANNED REPORT 05/10/24.1054.DNP.C OMPLETE Normal [facility] Comment on above: Performed By: #### 2 21541 #### [place] [id number] Microscopic examination of blood, culture CULTURE BLOOD [TRAMAINE] _BLOOD CULTURE_ GO TO [employer] REPORTS AND ATTACHMENTS FOR SCANNED REPORT 05/10/24.1053.DNP.C OMPLETE Normal [facility] Comment on above: Performed By: #### 2 45849 #### [address] [address] D-DIMER, QUANTITATIVEon 04-15 D-DIMER QUANT 2763 ng/ml High 0 - 230 [facility] Comment on above: Performed By: #### 2 08147 #### [address],[place] [address] D-DIMER, QUANTITATIVE Normal Jacques l [facility] Comment on above: Result Comment: UDAY T D-DIMER Performed By: #### 2 21456 #### [facility],[address] [place] [address] 82726 LACTATEon 05-03-2024 Lactate [Moles/Vol] 1.5 mmol/L Normal 0.4 - 2.0 [facility] Comment on above: Performed By: #### 2 40716 #### [facility],[address] [place] [address] 83590 TROPONINon 05-03-2024 HS TROPONIN 9.4 pg/mL Normal 0.0 - 76.2 [facility] Comment on above: Performed By: #### 2 60888 #### [facility],[address] [place], [place] [id number] LABORATORYOrdered By: SYSTEM SYSTEM on 04-19-2024 Albumin BCP dye [Mass/Vol] 2.4 G/dL Low 3.5 - 5.0 G/dL AO ADM SS Albumin/Globulin [Mass ratio] 0.6 {ratio} Low 1.1 - 2.5 ratio AO ADM SS ALP [Catalytic activity/Vol] 69 U/L Normal 40 - 135 U/L AO ADM SS ALT With P-5'-P [Catalytic activity/Vol] 30 U/L Normal 16 - 63 U/L AO ADM SS AST With P-5'-P [Catalytic activity/Vol] 23 U/L Normal 10 - 40 U/L AO ADM SS Basophils (Bld) [#/Vol] 0.1 103/mcL Normal 0.0 - 0.2 10^3/mcL AO Workflow SS Basophils/100 WBC (Bld) 0.8 % Normal 0.0 - 2.5 % AO Workflow SS Bilirubin [Mass/Vol] 0.2 mg/dL Normal 0.2 - 1 .0 mg/dL AO ADM SS Comment on above: Interpretive Data: U se of this assay is not recommended for patients undergoing treatment with eltrombopag due to the potential for falsely elevated results. Calcium [Mass/Vol] 8.8 mg/dL Normal 8.4 - 10. 2 mg/dL AO ADM SS Chloride [Moles/Vol] 100 mmol/L Normal 98 - 10 7 mmol/L AO ADM SS CO2 [Moles/Vol] 30 mmol/L High 22 - 29 mmol/L AO ADM SS Creatinine [Mass/Vol] 0.75 mg/dL Normal 0.70 - 1.30 mg/dL AO ADM SS Comment on above: Interpretive Data: T esting performed on Siemens Dimension EXL analyzer using a modified kinetic Bridger technique. Electrolyte Balance 10.0 mEq/L Normal 4.0 - 15 .0 mEq/L AO ADM SS Eosinophil, Absolute 0.1 103/mcL Normal 0.0 - 0 .7 10^3/mcL AO Workflow SS Eosinophils/100 WBC (Bld) 1.9 % Normal 0.0 - 7.0 % AO Workflow SS Erythrocyte distribution width (RBC) [Ratio] 13.2 % Normal 11.5 - 15.5 % AO Workflow SS GFR/1.73 sq M.predicted among blacks MDRD (S/P/Bld) [Vol rate/Area] 134 ml/min/1.73sqm Invalid Interpretation Code AO Chemistry S Comment on above: Interpretive Data: GFR Population mean for , Non- Americans Ages 20-29 = 116 mL/min/1.73 sq.m. Ages 30-39 = 107 mL/min/1.73 sq.m. Ages 40-49 = 99 mL/min/1.73 sq.m. Ages 50-59 = 93 mL/min/1.73 sq.m. Ages 60-69 = 85 mL/min/1.73 sq.m. Ages 70+ = 75 mL/min/1.73 sq.m. Chronic Kidney Disease: Less than 60 mL/min/1.73 square meters End Stage Renal Disease: Less than 15 mL/min/1.73 square meters GFR/1.73 sq M.predicted among non-blacks MDRD (S/P/Bld) [Vol rate/Area] 111 ml/min/1.73sqm Invalid Interpretation Code AO Chemistry S Comment on above: Interpretive Data: GFR Population mean for , Non- Americans Ages 20-29 = 116 mL/min/1.73 sq.m. Ages 30-39 = 107 mL/min/1.73 sq.m. Ages 40-49 = 99 mL/min/1.73 sq.m. Ages 50-59 = 93 mL/min/1.73 sq.m. Ages 60-69 = 85 mL/min/1.73 sq.m. Ages 70+ = 75 mL/min/1.73 sq.m. Chronic Kidney Disease: Less than 60 mL/min/1.73 square meters End Stage Renal Disease: Less than 15 mL/min/1.73 square meters Globulin 4.1 G/dL Invalid Interpretation Code AO ADM SS Glucose [Mass/Vol] 78 mg/dL Normal 70 - 105 mg/dL AO ADM SS Hematocrit (Bld) [Volume fraction] 35.3 % Low 40.0 - 52.0 % AO Workflow SS Hemoglobin (Bld) [Mass/Vol] 11.9 G/dL Low 13.0 - 17.5 G/dL AO Workflow SS Lymphocytes (Bld) [#/Vol] 1.4 103/mcL Normal 0.9 - 4.3 10^3/mcL AO Workflow SS Lymphocytes/100 WBC (Bld) 21.5 % Normal 20.0 - 40.0 % AO Workflow SS MCH (RBC) [Entitic mass] 28.8 pg Normal 27.0 - 33.0 pg AO Workflow SS MCHC 33.7 G/dL Normal 32.0 - 36.0 G/dL AO Workflow SS MCV (RBC) [Entitic vol] 85.4 fL Normal 81.0 - 100.0 fL AO Workflow SS Monocytes (Bld) [#/Vol] 0.4 103/mcL Normal 0.1 - 1.4 10^3/mcL AO Workflow SS Monocytes/100 WBC (Bld) 6.1 % Normal 2.0 - 13.0 % AO Workflow SS Neutrophils (Bld) [#/Vol] 4.4 103/mcL Normal 2.3 - 8.1 10^3/mcL AO Workflow SS Neutrophils/100 WBC (Bld) 69.7 % Normal 50.0 - 75.0 % AO Workflow SS Platelet mean volume (Bld) [Entitic vol] 8.2 fL Normal 6.4 - 10.5 fL AO Workflow SS Platelets (Bld) [#/Vol] 390 103/mcL Normal 150 - 450 10^3/mcL AO Workflow SS Potassium [Moles/Vol] 4.2 mmol/L Normal 3.5 - 5.1 mmol/L AO ADM SS Protein [Mass/Vol] 6.5 G/dL Normal 6.4 - 8.2 G/dL AO ADM SS RBC (Bld) [#/Vol] 4.14 106/mcL Low 4.50 - 6.0 0 10^6/mcL AO Workflow SS Sodium [Moles/Vol] 140 mmol/L Normal 136 - 145 mmol/L AO ADM SS Urea nitrogen [Mass/Vol] 10 mg/dL Normal 7 - 18 mg/dL AO ADM SS Urea nitrogen/Creatinine [Mass ratio] 13 ratio Normal 7 - 27 ratio AO ADM SS WBC (Bld) [#/Vol] 6.3 103/mcL Normal 4.5 - 10.8 10^3/mcL AO Workflow SS CBC + DIFFon 11-04-2023 Baso # 0.01 x10EE3/UL Normal 0.00 - 0.10 [facility] Comment on above: Performed By: #### 2 85148 #### [facility],[address] [place] [address] 72154 Basophils/100 WBC (Bld) 0.3 % Normal 0.0 - 2.0 [facility] Comment on above: Performed By: #### 2 71523 #### [facility],[address] [place] [address] CBC + DIFF Normal [facility] Comment on above: Result Comment: CBC- COMPLETE BLOOD COUNT Performed By: #### 2 40157 #### [facility],[address] [place], [place] [id number] EO # 0.16 x10EE3/UL Normal 0.00 - 0.50 [facility] Comment on above: Performed By: #### 2 88173 #### [facility],[address] [place] [address] 68769 Eosinophils/100 WBC (Bld) 4.0 % Normal 0.0 - 7.0 [facility] Comment on above: Performed By: #### 2 78893 #### [facility],[address] [place] [address] Erythrocyte distribution width (RBC) [Ratio] 13.9 % Normal 12.0 - 15.6 [facility] Comment on above: Performed By: #### 2 17276 #### [facility],[address] [place] [address] Hematocrit (Bld) [Volume fraction] 39.2 % Low 40.0 - 52.0 [facility] Comment on above: Performed By: #### 2 73323 #### [facility],[address] [place] [address] Hemoglobin (Bld) [Mass/Vol] 13.3 g/dL Normal 13.0 - 17.5 [facility] Comment on above: Performed By: #### 2 58495 #### [facility],[address] [place] [address] Lymph # 1.15 x10EE3/UL Normal 0.80 - 2.80 [facility] Comment on above: Performed By: #### 2 88103 #### [facility],[address] [place] [address] Lymphocytes/100 WBC (Bld) 29.2 % Normal 20.0 - 45.0 [facility] Comment on above: Performed By: #### 2 05194 #### [facility],[address] [place] [address] MANUAL DIFF N/A Normal [facility] Comment on above: Performed By: #### 2 38400 #### [facility],[address] [place], [place] [phone] MCH (RBC) [Entitic mass] 30 pg Normal 27 - 33 [facility] Comment on above: Performed By: #### 2 67831 #### [place] [id number] MCHC 34 X10 3 Normal 32 - 36 [facility] Comment on above: Performed By: #### 2 15336 #### [facility],[address] [place], [place] [id number] MCV (RBC) [Entitic vol] 88 fL Normal 81 - 98 [facility] Comment on above: Performed By: #### 2 68855 #### [facility],[address] [place] [address] [place]apata # 0.57 x10EE3/UL Normal 0.20 - 1.00 [facility] Comment on above: Performed By: #### 2 05891 #### [facility],[address] [place] [address] MONOS % 14.4 % High 0.0 - 10.0 [facility] Comment on above: Performed By: #### 2 19103 #### [place] [address] Morphology Len (Bld) [Interp] N/A Normal [facility] Comment on above: Performed By: #### 2 35879 #### [facility],[address] [place] [address] Neut # 2.06 x10EE3/UL Normal 1.50 - 7.10 [facility] Comment on above: Performed By: #### 2 70541 #### [place] [address] Neutrophils/100 WBC (Bld) 52.1 % Normal 46.0 - 76.0 [facility] Comment on above: Performed By: #### 2 58836 #### [facility],[address] [place] [address] PLATELET 210 x10EE3/UL Normal 150 - 450 [facility] Comment on above: Performed By: #### 2 45979 #### [place] [address] Platelet mean volume (Bld) [Entitic vol] 8.5 fL Normal 6.4 - 10.5 [facility] Comment on above: Result Comment: AUTO MATED DIFFERENTIAL Performed By: #### 2 23060 #### [facility],[address] [place] [address] 70455 RBC 4.48 x 10EE6/UL Low 4.50 - 6.00 [facility] Comment on above: Performed By: #### 2 43553 #### [facility],[address] [place] [address] 31042 WBC 4.0 x 10EE3/UL Low 4.5 - 10.8 [facility] Comment on above: Performed By: #### 2 41513 #### [facility],[address] [place] [address] 05559 CMP with eGFRon 11-04-2023 AGE 47 years Normal [facility] Comment on above: Performed By: #### 2 92015 #### [facility],[address] [place] [address] 41865 Albumin [Mass/Vol] 3.1 g/dL Low 3.4 - 5.0 [facility] Comment on above: Performed By: #### 2 96989 #### [facility],[address] [place] [address] 42815 Albumin/Globulin [Mass ratio] 0.9 {ratio} Normal 0.9 - 1.6 [facility] Comment on above: Performed By: #### 2 86303 #### [facility],[address] [place] [address] 37819 ALK PHOS 58 U/L Normal 46 - 116 [facility] Comment on above: Performed By: #### 2 70328 #### [facility],[address] [place] [address] 52889 ALT [Catalytic activity/Vol] 28 U/L Normal 16 - 63 [facility] Comment on above: Performed By: #### 2 88385 #### [facility],[address] [place] [address] 33933 Anion gap [Moles/Vol] 13 mmol/L Normal 10 - 20 [facility] Comment on above: Performed By: #### 2 70964 #### [facility],[address] [place] [address] 00520 AST [Catalytic activity/Vol] 27 U/L Normal 15 - 37 [facility] Comment on above: Performed By: #### 2 99139 #### [facility],[address] [place] [address] 93089 B/C RATIO 13 ratio Normal 0 - 30 [facility] Comment on above: Performed By: #### 2 43814 #### [facility],[address] [place] [address] 63614 Bilirubin [Mass/Vol] 0.3 mg/dL Normal 0.2 - 1.0 [facility] Comment on above: Performed By: #### 2 56856 #### [facility],[address] [place] [address] 07185 Calcium [Mass/Vol] 8.5 mg/dL Normal 8.5 - 10.1 [facility] Comment on above: Performed By: #### 2 90880 #### [facility],[address] [place] [address] 08260 Chloride [Moles/Vol] 105 mmol/L Normal 98 - 107 [facility] Comment on above: Performed By: #### 2 69845 #### [facility],[address] [place] [address] 24458 CMP with eGFR Normal [facility] Comment on above: Result Comment: COMP REHENSIVE METABOLIC PANEL Performed By: #### 2 32179 #### [facility],[address] [place] [address] 30373 CO2 [Moles/Vol] 27.3 mmol/L Normal 21.0 - 32.0 [facility] Comment on above: Performed By: #### 2 71951 #### [facility],[address] [place] [address] 93145 Creatinine [Mass/Vol] 0.76 mg/dL Normal 0.70 - 1.30 [facility] Comment on above: Performed By: #### 2 19430 #### [facility],[address] [place] [address] 46976 GFR/1.73 sq M.predicted among non-blacks MDRD (S/P/Bld) [Vol rate/Area] mL/min/{1.73_m2} Normal 60 - 999 [facility] Comment on above: Performed By: #### 2 68989 #### [facility],[address] [place] [address] 14897 Result Comment: ACCO RDING TO THE NATIONAL KIDNEY DISEASE EDUCATION PROGRAM(NKDE), A NORMAL eGFR IS A VALUE GREATER THAN OR EQUAL TO 60 ML/MIN/1.73 SQ METERS. CHRONIC KIDNEY DISEASE: <60mL/MIN/1.73 SQ METERS KIDNEY FAILURE: <15mL/MIN/1.73 SQ METERS THIS TEST SHOULD ONLY BE USED FOR PATIENTS 18 YEARS OF AGE AND OLDER. Globulin (S) [Mass/Vol] 3.4 g/dL Normal 1.5 - 3.8 [facility] Comment on above: Performed By: #### 2 35459 #### [facility],[address] [place] [address] 37319 Glucose [Mass/Vol] 94 mg/dL Normal 74 - 106 [facility] Comment on above: Performed By: #### 2 72728 #### [facility],[address] [place] [address] 66667 Potassium [Moles/Vol] 4.1 mmol/L Normal 3.5 - 5.1 [facility] Comment on above: Performed By: #### 2 38226 #### [facility],[address] [place] [address] 36913 Protein [Mass/Vol] 6.5 g/dL Normal 6.4 - 8.2 [facility] Comment on above: Performed By: #### 2 79784 #### [facility],[address] [place] [address] 64536 Sodium [Moles/Vol] 141 mmol/L Normal 136 - 145 [facility] Comment on above: Performed By: #### 2 33301 #### [facility],[address] [place] [address] 15128 Urea nitrogen [Mass/Vol] 10 mg/dL Normal 7 - 18 [facility] Comment on above: Performed By: #### 2 60210 #### [facility],[address] [place] [address] ABDOMEN/PELVIS W/O CONTRA STon 10-20-2023 CT ABDOMEN/PELVIS W/O CONTRAST ORIGINAL EXAMINATION: CT OF THE ABDOMEN AND PELVIS WITHOUT CONTRAST 10/19/2023 11:56 pm TECHNIQUE: CT of the abdomen and pelvis was performed without the administration of intravenous contrast. Multiplanar reformatted images are provided for review. Automated exposure control, iterative reconstruction, and/or weight based adjustment of the mA/kV was utilized to reduce the radiation dose to as low as reasonably achievable. COMPARISON: Chest radiograph 07/06/2017 HISTORY: ORDERING SYSTEM PROVIDED HISTORY: Reason for Exam: Left sided pain for a couple of weeks. pain FINDINGS: Evaluation for mass and inflammatory process is limited by absence of intravenous contrast. Lower Chest: Visualized lower thorax demonstrates no consolidation or pleural effusion. Organs: The liver demonstrates no biliary duct dilatation or gross mass. The gallbladder is decompressed without gross gallstones. The pancreas demonstrates no evidence of mass, ductal dilatation, or inflammatory process. Spleen is normal in size. Adrenal glands are normal in size. There is inferior right renal 7 mm calculus without hydronephrosis. Left kidney demonstrates no hydronephrosis or obstructive calculi. There is superior left renal hypodense cortical 1.6 x 1.2 cm cyst. Ureters are normal in caliber bilaterally. GI/Bowel: Stomach and duodenal sweep demonstrate no acute abnormality. Small bowel and colon are normal in caliber. The appendix is not discretely visualized. There is no gross pericecal mass or inflammatory process. Pelvis: Urinary bladder is within normal limits. Prostate gland is mildly enlarged measuring 3.7 cm AP x 5.1 cm TR. Seminal vesicles are grossly normal in morphology. Peritoneum/Retroper itoneum: Aorta is normal in caliber without acute abnormality. There are a few calcified plaques of the aorta. Bones/Soft Tissues: Osseous structures are intact. IMPRESSION: 1. There is no evidence of obstructive uropathy. Kidneys demonstrate no hydronephrosis or renal calculi. There is inferior right renal 7 mm calculus without hydronephrosis. There is superior left renal hypodense cortical 1.6 x 1.2 cm cyst. 2. There is no bowel obstruction or adynamic ileus. The appendix is not discretely visualized. There is no gross pericecal mass or inflammatory process. Interpreted by: David Valenzuela Preliminary Report By: David Valenzuela Electronically signed By David Valenzuela Dictated Date: 10/19/2023 11:59:57 PM Prelim Date: 10/20/2023 12:09:46 AM Sign Date: 10/20/2023 12:09:46 AM Ordering Provider: CHIARA Beard [facility] ([place]) CBC + DIFFon 07-27-2023 Baso # 0.04 x10EE3/UL Normal 0.00 - 0.10 [facility] Comment on above: Performed By: #### 2 77948 #### [address] [address] Basophils/100 WBC (Bld) 0.7 % Normal 0.0 - 2.0 [facility] Comment on above: Performed By: #### 2 43390 #### [address] [address] CBC + DIFF Normal [facility] Comment on above: Result Comment: CBC- COMPLETE BLOOD COUNT Performed By: #### 2 75020 #### [address] [address] EO # 0.25 x10EE3/UL Normal 0.00 - 0.50 [facility] Comment on above: Performed By: #### 2 88108 #### [address] [address] Eosinophils/100 WBC (Bld) 4.4 % Normal 0.0 - 7.0 [facility] Comment on above: Performed By: #### 2 44622 #### [address] [address] Erythrocyte distribution width (RBC) [Ratio] 13.6 % Normal 12.0 - 15.6 [facility] Comment on above: Performed By: #### 2 71035 #### [facility],[address] [place] [address] Hematocrit (Bld) [Volume fraction] 41.0 % Normal 40.0 - 52.0 [facility] Comment on above: Performed By: #### 2 69992 #### [facility],[address] [place] [address] Hemoglobin (Bld) [Mass/Vol] 14.0 g/dL Normal 13.0 - 17.5 [facility] Comment on above: Performed By: #### 2 95157 #### [facility],[address] [place] [address] Lymph # 1.79 x10EE3/UL Normal 0.80 - 2.80 [facility] Comment on above: Performed By: #### 2 43970 #### [facility],[address] [place] [address] Lymphocytes/100 WBC (Bld) 31.8 % Normal 20.0 - 45.0 [facility] Comment on above: Performed By: #### 2 71202 #### [facility],[address] [place] [address] MANUAL DIFF N/A Normal [facility] Comment on above: Performed By: #### 2 03696 #### [facility],[address] [place], [place] [id number] MCH (RBC) [Entitic mass] 30 pg Normal 27 - 33 [facility] Comment on above: Performed By: #### 2 81003 #### [facility],[address] [place] [address] MCHC 34 X10 3 Normal 32 - 36 [facility] Comment on above: Performed By: #### 2 31020 #### [facility],[address] [place] [address] MCV (RBC) [Entitic vol] 88 fL Normal 81 - 98 [facility] Comment on above: Performed By: #### 2 42293 #### [facility],[address] [place] [address] [place] # 0.66 x10EE3/UL Normal 0.20 - 1.00 [facility] Comment on above: Performed By: #### 2 27450 #### [facility],[address] [place] [address] MONOS % 11.7 % High 0.0 - 10.0 [facility] Comment on above: Performed By: #### 2 38718 #### [place] [address] Morphology Len (Bld) [Interp] N/A Normal [facility] Comment on above: Performed By: #### 2 35552 #### [place] [address] Neut # 2.89 x10EE3/UL Normal 1.50 - 7.10 [facility] Comment on above: Performed By: #### 2 26872 #### [place] [address] Neutrophils/100 WBC (Bld) 51.4 % Normal 46.0 - 76.0 [facility] Comment on above: Performed By: #### 2 22888 #### [facility],[address] [place] [address] PLATELET 256 x10EE3/UL Normal 150 - 450 [facility] Comment on above: Performed By: #### 2 99340 #### [place] [address] Platelet mean volume (Bld) [Entitic vol] 9.1 fL Normal 6.4 - 10.5 [facility] Comment on above: Result Comment: AUTO MATED DIFFERENTIAL Performed By: #### 2 69302 #### [address],[place] [address] RBC 4.68 x 10EE6/UL Normal 4.50 - 6.00 [facility] Comment on above: Performed By: #### 2 44562 #### [facility],[address] [place] [address] 60229 WBC 5.6 x 10EE3/UL Normal 4.5 - 10.8 [facility] Comment on above: Performed By: #### 2 97995 #### [facility],[address] [place] [address] 46873 CMP with eGFRon 07-27-2023 AGE 47 years Normal [facility] Comment on above: Performed By: #### 2 98834 #### [facility],[address] [place] [address] 23909 Albumin [Mass/Vol] 3.2 g/dL Low 3.4 - 5.0 [facility] Comment on above: Performed By: #### 2 64351 #### [facility],[address] [place] [address] 26039 Albumin/Globulin [Mass ratio] 0.8 {ratio} Low 0.9 - 1.6 [facility] Comment on above: Performed By: #### 2 64462 #### [facility],[address] [place] [address] 88320 ALK PHOS 59 U/L Normal 46 - 116 [facility] Comment on above: Performed By: #### 2 98279 #### [facility],[address] [place] [address] 05379 ALT [Catalytic activity/Vol] 37 U/L Normal 16 - 63 [facility] Comment on above: Performed By: #### 2 87119 #### [facility],[address] [place] [address] 16289 Anion gap [Moles/Vol] 9 mmol/L Low 10 - 20 [facility] Comment on above: Performed By: #### 2 27999 #### [facility],[address] [place] [address] 68763 AST [Catalytic activity/Vol] 25 U/L Normal 15 - 37 [facility] Comment on above: Performed By: #### 2 10427 #### [facility],[address] [place] [address] 83061 B/C RATIO 12 ratio Normal 0 - 30 [facility] Comment on above: Performed By: #### 2 13120 #### [facility],[address] [place] [address] 54178 Bilirubin [Mass/Vol] 0.3 mg/dL Normal 0.2 - 1.0 [facility] Comment on above: Performed By: #### 2 26386 #### [facility],[address] [place] [address] 49471 Calcium [Mass/Vol] 8.6 mg/dL Normal 8.5 - 10.1 [facility] Comment on above: Performed By: #### 2 56226 #### [facility],[address] [place] [address] 30260 Chloride [Moles/Vol] 105 mmol/L Normal 98 - 107 [facility] Comment on above: Performed By: #### 2 79188 #### [facility],[address] [place] [address] 63927 CMP with eGFR Normal [facility] Comment on above: Result Comment: COMP REHENSIVE METABOLIC PANEL Performed By: #### 2 37115 #### [facility],[address] [place] [address] 63513 CO2 [Moles/Vol] 33.7 mmol/L High 21.0 - 32.0 [facility] Comment on above: Performed By: #### 2 82736 #### [facility],[address] [place] [address] 66684 Creatinine [Mass/Vol] 0.94 mg/dL Normal 0.70 - 1.30 [facility] Comment on above: Performed By: #### 2 65359 #### [facility],[address] [place] [address] 76747 GFR/1.73 sq M.predicted among non-blacks MDRD (S/P/Bld) [Vol rate/Area] mL/min/{1.73_m2} Normal 60 - 999 [facility] Comment on above: Performed By: #### 2 61261 #### [facility],[address] [place] [address] 23301 Result Comment: ACCO RDING TO THE NATIONAL KIDNEY DISEASE EDUCATION PROGRAM(NKDE), A NORMAL eGFR IS A VALUE GREATER THAN OR EQUAL TO 60 ML/MIN/1.73 SQ METERS. CHRONIC KIDNEY DISEASE: <60mL/MIN/1.73 SQ METERS KIDNEY FAILURE: <15mL/MIN/1.73 SQ METERS THIS TEST SHOULD ONLY BE USED FOR PATIENTS 18 YEARS OF AGE AND OLDER. Globulin (S) [Mass/Vol] 3.8 g/dL Normal 1.5 - 3.8 [facility] Comment on above: Performed By: #### 2 [id number] #### [facility],[address] [place] [id number] Glucose [Mass/Vol] 59 mg/dL Low 74 - 106 [facility] Comment on above: Performed By: #### 2 68465 #### [facility],[address] [place] [address]1022 Potassium [Moles/Vol] 4.3 mmol/L Normal 3.5 - 5.1 [facility] Comment on above: Performed By: #### 2 54100 #### [facility],[address] [place] [address] 86693 Protein [Mass/Vol] 7.0 g/dL Normal 6.4 - 8.2 [facility] Comment on above: Performed By: #### 2 02696 #### [facility],[address] [place] [address]17 Sodium [Moles/Vol] 143 mmol/L Normal 136 - 145 [facility] Comment on above: Performed By: #### 2 78600 #### [facility],[address] [id number] Urea nitrogen [Mass/Vol] 11 mg/dL Normal 7 - 18 [facility] Comment on above: Performed By: #### 2 67788 #### [facility],[address] [id number] TB by QuantiFERON *OUTSIDE U SE ONLY*on 02-13-2019 Interpretation TBNEG Normal [facility] Comment on above: Performed By: #### I NTPGP #### [facility] [address] [phone] Mitogen minus Nil 5.80 Normal [facility] Comment on above: Performed By: #### I NTPGP #### [facility] [address] [phone] TB NIL 0.02 IU/mL Normal [facility] Comment on above: Performed By: #### I NTPGP #### [facility] [address] [phone] TB Result NEGAT Normal Negative [facility] Comment on above: Performed By: #### I NTPGP #### [facility] [address] [phone] TB1 Ag minus Nil 0.00 IU/mL [facility] Comment on above: Performed By: #### I NTPGP #### [facility] [address] [phone] TB2 Ag minus Nil 0.00 IU/mL Normal [facility]0.35 [facility] Comment on above: Performed By: #### I NTPGP #### [facility] [address] [phone] Vital Signs Date Time Vital Sign Value Performing Clinician Justin watts 04-12-2024 17:17-0500 Body height 175.3 cm GRAEME WANG MD [facility] 04-12-2024 17:17-0500 Body temperature 97.7 [degF] GRAEME WANG MD [facility] 04-12-2024 17:17-0500 Body weight 56.8 kg GRAEME WANG MD [facility] 04-12-2024 17:17-0500 Diastolic Blood Pressure Non-Invasive 79 mm[Hg] GRAEME WANG MD [facility] 04-12-2024 17:17-0500 Heart rate 115 /min GRAEME WANG MD [facility] 04-12-2024 17:17-0500 Respiratory rate 16 /min GRAEME WANG MD [facility] 04-12-2024 17:17-0500 Systolic Blood Pressure Non-Invasive 118 mm[Hg] GRAEME WANG MD [facility] 10-20-2023 00:58-0400 Diastolic Blood Pressure Non-Invasive 78 mm[Hg] NIDAL CHOUJAA DO [facility] 10-20-2023 00:58-0400 Heart rate 78 /min NIDAL CHOUJAA DO [facility] 10-20-2023 00:58-0400 Respiratory rate 16 /min NIDAL CHOUJAA DO [facility] 10-20-2023 00:58-0400 Systolic Blood Pressure Non-Invasive 130 mm[Hg] NIDAL CHOUJAA DO [facility] 10-19-2023 22:46-0400 Body height 175.3 cm NIDAL CHOUJAA DO [facility] 10-19-2023 22:46-0400 Body temperature 98.42 [degF] NIDAL CHOUJAA DO [facility] 10-19-2023 22:46-0400 Body weight 56.8 kg NIDAL CHOUJAA DO [facility] 10-19-2023 22:46-0400 Diastolic Blood Pressure Non-Invasive 87 mm[Hg] NIDAL CHOUJAA DO [facility] 10-19-2023 22:46-0400 Heart rate 97 /min NIDAL CHOUJAA DO [facility] 10-19-2023 22:46-0400 Respiratory rate 20 /min NIDAL CHOUJAA DO [facility] 10-19-2023 22:46-0400 Systolic Blood Pressure Non-Invasive 127 mm[Hg] [facility] Encounters Encounter Date Encounter Type Care Provider Facility Start: 07-19-2024 End: 07-19-2024 ambulatory JASMINA MARCH [facility] Start: 07-01-2024 End: 07-01-2024 ambulatory Josselin Reis Facility:[facility] [place] [place] Start: 06-05-2024 ambulatory Coby Mcdonnell Facility :[facility] [place] [place] Start: 05-31-2024 End: 05-31-2024 ambulatory JOSSELIN HERNANDEZ [facility] Start: 05-03-2024 End: 05-03-2024 ambulatory JOSSELIN HERNANDEZ [facility] Start: 04-19-2024 End: 04-19-[address] JASMINA MARCH MD [facility] Start: 04-12-2024 End: 04-12-2024 Emergency department patient visit GRAEME WANG MD [facility] [place] Start: 11-04-2023 End: 11-04-2023 [facility] Start: 10-19-2023 End: 10-20-2023 Emergency department patient visit CHIARA SINGH DO [facility] [place] Start: 07-27-2023 End: 07-27-2023 ambulatory JASMINA POWERS [facility] Procedures Date Procedure Procedure Detail Performing Clinician Start: 06-19-2017 Lobectomy of lung CHIARA SINGH DO Comment on above: Right upper lobectom y Start: 06-19-2017 Video assisted thora scopic surgery (qualifier value) NIDONDINA SINGH DO Comment on above: RVAT None (qualifier value) NIDAL FRANCISCO DO Payers Date Payer Category Payer Self-pay 2024 Unknown [id number] 2023 Unknown [id number] 2023 Unknown [id number] 1974 Unknown [id number] 2.16.8 [id number] 1974 Unknown [id number] 2.16.8 [id number] 1974 Unknown [id number] 2.16.8 [id number] 1974 Unknown [id number] 2.16.8 [id number] 1974 Unknown [id number] 2.16.8 [id number] 1974 Unknown [id number] 2.16.8 [id number] 1974 Unknown [id number] 2.16.8 [id number] Unknown [id number] Unknown [id number] Unknown [id number] 2.16.8 [id number] Unknown [id number] 2.16.8 [id number] Unknown [id number] 2.16.8 [id number] Unknown [id number] 2.16.8 [id number] Unknown [id number] 2.16.8 [id number] Social History Date Type Detail Facility Tobacco smoking status Ex-smoker (finding ) [facility] Sex Assigned At Male [facility] Functional Status Date Assessment Result Facility 04-12-2024 Functional Status Independent [facility] 10-20-2023 Functional Status Assistive Device None [facility] 10-19-2023 Functional Status Standard Safet y ID band on, Call device within reach, Bed in low position, Wheels locked [facility] Mental Status Date Assessment Result Facility 04-12-2024 Mental Status Oriented x 4 [facility] 10-20-2023 Mental Status Orientation Oriented x 4 [facility] 10-19-2023 Mental Status [facility] Clinical Notes 10-19-2023 to 05-09-2024 Note Date & Type Note Facility 05-09-2024 Note . MICRO - Microbiology PROCEDURE: Blood Culture (bacterial) [O1 *1] SOURCE: Blood BODY SITE: COLLECTED DATE/TIME: 05/03/2024 15:10 EST RECEIVED DATE/TIME: 05/04/2024 16:31 EST START DATE/TIME: 05/04/2024 16:32 EST FREE TEXT SOURCE: FINAL REPORTS Final Report [] Verified Date/Time/Personnel: 05/09/2024 16:59 EST Blood Culture: No Growth at 5 days. PRELIMINARY REPORTS Preliminary Report [] Verified Date/Time/Personnel: 05/04/2024 17:59 EST Culture has been received in lab and is no growth to date. Routine cultures are held for 5 days. Order Comments O1: Blood Culture (bacterial) [id number] Performing Locations *1: This test was performed at: [address], [facility] , [facility] 05-09-2024 Note . MICRO - Microbiology PROCEDURE: Blood Culture (bacterial) [O1 *1] SOURCE: Blood BODY SITE: COLLECTED DATE/TIME: 05/03/2024 15:15 EST RECEIVED DATE/TIME: 05/04/2024 16:29 EST START DATE/TIME: 05/04/2024 16:30 EST FREE TEXT SOURCE: FINAL REPORTS Final Report [] Verified Date/Time/Personnel: 05/09/2024 16:59 EST Blood Culture: No Growth at 5 days. PRELIMINARY REPORTS Preliminary Report [] Verified Date/Time/Personnel: 05/04/2024 17:59 EST Culture has been received in lab and is no growth to date. Routine cultures are held for 5 days. Order Comments O1: Blood Culture (bacterial) [id number] Performing Locations *1: This test was performed at: [address], [facility] , [facility] 04-12-2024 Hospital Discharg e instructions Patient Education 04/12/2024 17:27:09 Pharyngitis, Viral Viral Pharyngitis (Sore Throat) You or your child have pharyngitis (sore throat). This infection is caused by a virus. It can cause throat pain that is worse when swallowing, aching all over, headache, and fever. The infection may be spread by coughing, kissing, or touching others after touching your mouth or nose. Antibiotic medicines do not work against viruses. They are not used for treating this illness. Home care If symptoms are severe, you or your child should rest at home. Return to work or school when you or your child feel well enough. You or your child should drink plenty of fluids to prevent dehydration. Use throat lozenges or numbing throat sprays to help reduce pain. Gargling with warm salt water will also help reduce throat pain. Dissolve 1/2 teaspoon of salt in 1 glass of warm water. Children can sip on juice or a popsicle. Children 5 years and older can also suck on a lollipop or hard candy. Don t eat salty or spicy foods or give them to your child. These can be irritating to the throat. Medicines for a child: You can give your child acetaminophen for fever, fussiness, or discomfort. In babies over 6 months of age, you may use ibuprofen instead of acetaminophen. If your child has chronic liver or kidney disease or ever had a stomach ulcer or GI bleeding, talk with your child s healthcare provider before giving these medicines. Aspirin should never be used by any child under 18 years of age who has a fever. It may cause severe liver damage. Medicines for an adult: You may use acetaminophen or ibuprofen to control pain or fever, unless another medicine was prescribed for this. If you have chronic liver or kidney disease or ever had a stomach ulcer or GI bleeding, talk with your healthcare provider before using these medicines. Follow-up care Follow up with a healthcare provider or our staff if you or your child are not getting better over the next week. When to seek medical advice Call your healthcare provider right away if any of these occur: Fever as directed by your healthcare provider. For children, seek care if: oYour child is of any age and has repeated fevers above 104 F (40 C). oYour child is younger than 2 years of age and has a fever of 100.4 F (38 C) for more than 1 day. oYour child is 2 years old or older and has a fever of 100.4 F (38 C) for more than 3 days. New or worsening ear pain, sinus pain, or headache Painful lumps in the back of neck Stiff neck Lymph nodes are getting larger Can t swallow liquids, a lot of drooling, or can t open mouth wide due to throat pain Signs of dehydration, such as very dark urine or no urine, sunken eyes, dizziness Trouble breathing or noisy breathing Muffled voice New rash Other symptoms are getting worse [id number] [employer]. [address] [place] [address], [place] [address]. All rights reserved. This information is not intended as a substitute for professional medical care. Always follow your healthcare professional's instructions. Follow Up Care 04/12/2024 17:07:57 With:JOSSELIN REIS Address: [address] [place] [address] [place] [id number] [phone] When:2-4 days [facility] 04-12-2024 Note Discharge Instructions Thank you for allowing [facility] to assist you with your healthcare needs. The following is important discharge information regarding your hospital visit. Diagnosis from Today's Visit Acute pharyngitis Rheumatoid arthritis What to Do Next Instructions from Your Care Team No qualifying data available. Post Acute Orders No qualifying data available. You Need to Schedule the Following Appointments Follow Up with JOSSELIN REIS When:Within 2-4 days Where:[address] [place] [address] [address] [place] [address] [phone] Allergies methotrexate Medications Please ask your primary doctor or pharmacist before taking any other medication not listed, including over the counter drugs, herbal medications, vitamins and or supplements as they may interact with your home medications. What How Much When Instructions Last Dose New amoxicillin-clavulanate (amoxicillin-clavulanate 875 mg-125 mg oral tablet) 1 tab(s) by mouth Every 12 hours Duration: 7 Days Printed Prescription Changed predniSONE (predniSONE 10 mg oral tablet) 1 tab(s) by mouth Once a day Changed predniSONE (predniSONE 20 mg oral tablet) 1 tab(s) by mouth Once a day Duration: 7 Days Take with food Printed Prescription Unchanged acetaminophen (Tylenol 325 mg oral tablet) 2 tab(s) by mouth Every 4 hours as needed for Pain, scale 1-3 Unchanged ascorbic acid (Vitamin C 1000 mg oral tablet) 1 tab(s) by mouth Once a day Unchanged dextromethorphan-guaifenesin (Mucinex DM 30 mg-600 mg oral tablet, extended release) 1 tab(s) by mouth Every 12 hours Duration: 7 Days Unchanged melatonin (melatonin 10 mg oral capsule) 1 cap by mouth Daily at bedtime Unchanged multivitamin with iron (Vitamin B Complex with C, Folic Acid, and Iron oral tablet *) 1 tab(s) by mouth Once a day Please take this list to your next doctor s visit. Bring all medications you take, including over the counter medications, herbals and other supplements with you to your doctor s visit. Patients and families are reminded to discard old lists and to update any records with all medication providers or retail pharmacies. Education Materials Viral Pharyngitis (Sore Throat) You or your child have pharyngitis (sore throat). This infection is caused by a virus. It can cause throat pain that is worse when swallowing, aching all over, headache, and fever. The infection may be spread by coughing, kissing, or touching others after touching your mouth or nose. Antibiotic medicines do not work against viruses. They are not used for treating this illness. Home care If symptoms are severe, you or your child should rest at home. Return to work or school when you or your child feel well enough. You or your child should drink plenty of fluids to prevent dehydration. Use throat lozenges or numbing throat sprays to help reduce pain. Gargling with warm salt water will also help reduce throat pain. Dissolve 1/2 teaspoon of salt in 1 glass of warm water. Children can sip on juice or a popsicle. Children 5 years and older can also suck on a lollipop or hard candy. Don t eat salty or spicy foods or give them to your child. These can be irritating to the throat. Medicines for a child: You can give your child acetaminophen for fever, fussiness, or discomfort. In babies over 6 months of age, you may use ibuprofen instead of acetaminophen. If your child has chronic liver or kidney disease or ever had a stomach ulcer or GI bleeding, talk with your child s healthcare provider before giving these medicines. Aspirin should never be used by any child under 18 years of age who has a fever. It may cause severe liver damage. Medicines for an adult: You may use acetaminophen or ibuprofen to control pain or fever, unless another medicine was prescribed for this. If you have chronic liver or kidney disease or ever had a stomach ulcer or GI bleeding, talk with your healthcare provider before using these medicines. Follow-up care Follow up with a healthcare provider or our staff if you or your child are not getting better over the next week. When to seek medical advice Call your healthcare provider right away if any of these occur: Fever as directed by your healthcare provider. For children, seek care if: oYour child is of any age and has repeated fevers above 104 F (40 C). oYour child is younger than 2 years of age and has a fever of 100.4 F (38 C) for more than 1 day. oYour child is 2 years old or older and has a fever of 100.4 F (38 C) for more than 3 days. New or worsening ear pain, sinus pain, or headache Painful lumps in the back of neck Stiff neck Lymph nodes are getting larger Can t swallow liquids, a lot of drooling, or can t open mouth wide due to throat pain Signs of dehydration, such as very dark urine or no urine, sunken eyes, dizziness Trouble breathing or noisy breathing Muffled voice New rash Other symptoms are getting worse [id number] [employer]. [address] [place] [address]. All rights reserved. This information is not intended as a substitute for professional medical care. Always follow your healthcare professional's instructions. Additional Information VACCINATE! IT SAVES LIVES! Members of the community who have not yet received the COVID-19 vaccine and would like to receive it can visit one of [facility] vaccine clinics. There are many vaccine clinic locations within the [facility]. For locations and available times, please visit [email or web address] [email or web address] It is important to note that some COVID mobile vaccine clinics are held outdoors and may be canceled in rainy or stormy conditions. To learn more about pediatric vaccinations (ages 5-11), we invite you to visit the [facility] webpage. [email or web address]/p [email or web address]-Freq [email or web address] To learn more about the COVID-19 vaccine, we invite you to visit the CDC website for a list of frequently asked questions. https://www.cdc.gov/coronavirus/ 2019-ncov/vaccines/faq.html [employer] Patient Portal Access Instructions: Stay connected with your healthcare team and access your personal medical information anytime with the [employer] Patient Portal. If you would like a full copy of your medical records please contact the [facility] Medical Records Department Monday through Monday between 8a.m. and 4:30p.m. Please follow the directions below to access the portal: 1.Access the email account you provided upon registration to the hospital.2.Look for an invitation email from [facility].3.Open the email and access the invitation link: Accept Invitation to [employer].Fill in the required jordan to create your account. Sign into [email or web address] with your username and password that you created in the above steps to stay up to date. You can then view a summary of results, a summary of your visits, and the ability to download your summaries to your computer or send the information securely to a physician. Remember that your healthcare information is confidential, so carefully consider who you will allow to register on the [facility] [employer] Patient Portal for access to your information. You can also access the [employer] Patient Portal on the [employer] stephen. Simply click on Health Records under Health Data and then click on the [employer] logo. HOW TO SAFELY DISPOSE OF PRESCRIPTION MEDICATIONS Please use one of the following methods to safely dispose of your unused medications. 1.Use a drug disposal kit: the drug disposal pouch allows you to safely discard your old and unused drugs. Ask your nurse to give you one when you are discharged.2.Visit a local take-back location: Many local pharmacies and police departments have programs that collect old and unwanted prescription drugs. Call your local pharmacy or go to http://Movaris.DNA13/3O6Se2i to find one close to you.3.Make use of household items: Use cat litter or old coffee grounds to dispose medications if other options are not available. Mix your drugs with these household products, seal them in an airtight container and throw it into the garbage. Call [facility]: [phone] to be sure your drugs can be disposed of in this way. Some medicines may require a different approach.4.Never flush your medications down the toilet. IF YOU HAVE BEEN PRESCRIBED AN OPIOIDS FOR PAIN If you have been prescribed an opioid (such as hydrocodone, oxycodone or morphine), it is critical to understand the possible side effects and risks of opioid pain medications. Even when taken as directed, opioids can have several side effects including: Tolerance, meaning you might need to take more of a medication for the same pain relief. Nausea, vomiting and/or constipation. Sleepiness, dizziness, dry mouth, confusion, depression or itching. Physical dependence, meaning you have withdrawal symptoms when a medication is stopped ? this can develop within a few days. KNOW YOUR RESPONSIBILITIES It is important to know exactly how much and how often to take the opioid pain medications you are prescribed. Never take opioids in higher amounts or more often than prescribed. Do not combine opioids with alcohol or other drugs that cause drowsiness, such as benzodiazepines, also known as benzos, including diazepam and alprazolam, muscle relaxants or sleep aids. Never sell or share prescription opioids. This is illegal. Store opioids in a secure place and out of reach of others (including children, family, friends and visitors). The last page(s) of this document has been signed and retained as a CHART COPY Signatures Patient Education Materials Pharyngitis, Viral Medication Leaflets My discharge plan and instructions have been reviewed and explained to me and I,CHARLIE ESTES understand my current condition and have read and understand these discharge instructions. I have received a written copy of the plan/instructions. If I have questions, I am aware that I should contact my doctor. Patient/Forging Machine Operator Signature: Date/Time: Relationship to Patient: Witness Name/Signature: Date/Time: [facility] 10-20-2023 Hospital Discharg e instructions Patient Education 10/20/2023 00:28:27 Complementary Care for Pain Complementary Care for Pain You may find pain relief with complementary care. Look for a licensed or certified professional. And always tell your healthcare professional that you are using complementary care. Massage Massage can increase circulation and relaxation. This can help relieve stress and pain. Biofeedback Biofeedback uses instruments to measure the body's physiological activity, like heart rate and muscle activity. This information is used to help you learn to control certain functions, such as relaxing muscles and helping reduce pain. Chiropractic Chiropractic adjusts the spine and joints. It may help reduce back, neck, or joint pain. Chiropractic may also use mild electrical stimulation, massage, heat, or ultrasound (sound waves). Acupuncture Acupuncture uses thin needles to help treat pain. The treatment may release the body s own painkillers. Distraction Distraction helps you focus on something besides pain. Try reading a book, watching a movie, or talking with family. Or visit a local attraction. Meditation Meditation helps you focus on words, objects, or ideas. Doing this can calm you and decrease stress. Relaxation Relaxation includes methods like listening to soothing music or relaxation tapes. You might try slow, deep breathing. Imagine a calm scene, like an ocean or mountain, as you breathe. 5354-6379 [employer]. [address] [place] [address]. All rights reserved. This information is not intended as a substitute for professional medical care. Always follow your healthcare professional's instructions. Follow Up Care 10/19/2023 22:39:01 With:JOSSELIN REIS Address: [address] [place] [phone]- [phone] When:2-4 days [facility] 10-20-2023 Note Discharge Instructions Thank you for allowing [facility] to assist you with your healthcare needs. The following is important discharge information regarding your hospital visit. Diagnosis from Today's Visit Abdominal pain Musculoskeletal pain What to Do Next Instructions from Your Care Team Discharge Return to Work, School, or Sports (Return to Work, School, or Sports) - Ordered -- 10/21/23, May return to: work, 10/20/23 0:28:00 EDT Post Acute Orders No qualifying data available. You Need to Schedule the Following Appointments Follow Up with JOSSELIN REIS When:Within 2-4 days Where:[address] [place] [phone] Allergies methotrexate Medications Please ask your primary doctor or pharmacist before taking any other medication not listed, including over the counter drugs, herbal medications, vitamins and or supplements as they may interact with your home medications. What How Much When Instructions Last Dose Unchanged acetaminophen (Tylenol 325 mg oral tablet) 2 tab(s) by mouth Every 4 hours as needed for Pain, scale 1-3 Unchanged ascorbic acid (Vitamin C 1000 mg oral tablet) 1 tab(s) by mouth Once a day Unchanged dextromethorphan-guaifenesin (Mucinex DM 30 mg-600 mg oral tablet, extended release) 1 tab(s) by mouth Every 12 hours Duration: 7 Days Unchanged melatonin (melatonin 10 mg oral capsule) 1 cap by mouth Daily at bedtime Unchanged multivitamin with iron (Vitamin B Complex with C, Folic Acid, and Iron oral tablet *) 1 tab(s) by mouth Once a day Unchanged predniSONE (predniSONE 10 mg oral tablet) 1 tab(s) by mouth Once a day Please take this list to your next doctor s visit. Bring all medications you take, including over the counter medications, herbals and other supplements with you to your doctor s visit. Patients and families are reminded to discard old lists and to update any records with all medication providers or retail pharmacies. Education Materials Complementary Care for Pain You may find pain relief with complementary care. Look for a licensed or certified professional. And always tell your healthcare professional that you are using complementary care. Massage Massage can increase circulation and relaxation. This can help relieve stress and pain. Biofeedback Biofeedback uses instruments to measure the body's physiological activity, like heart rate and muscle activity. This information is used to help you learn to control certain functions, such as relaxing muscles and helping reduce pain. Chiropractic Chiropractic adjusts the spine and joints. It may help reduce back, neck, or joint pain. Chiropractic may also use mild electrical stimulation, massage, heat, or ultrasound (sound waves). Acupuncture Acupuncture uses thin needles to help treat pain. The treatment may release the body s own painkillers. Distraction Distraction helps you focus on something besides pain. Try reading a book, watching a movie, or talking with family. Or visit a local attraction. Meditation Meditation helps you focus on words, objects, or ideas. Doing this can calm you and decrease stress. Relaxation Relaxation includes methods like listening to soothing music or relaxation tapes. You might try slow, deep breathing. Imagine a calm scene, like an ocean or mountain, as you breathe. 7517-3403 [employer]. [address] [place] [address], [place] [address]. All rights reserved. This information is not intended as a substitute for professional medical care. Always follow your healthcare professional's instructions. Additional Information VACCINATE! IT SAVES LIVES! Members of the community who have not yet received the COVID-19 vaccine and would like to receive it can visit one of [facility] vaccine clinics. There are many vaccine clinic locations within the [facility]. For locations and available times, please visit [email or web address] It is important to note that some COVID mobile vaccine clinics are held outdoors and may be canceled in rainy or stormy conditions. To learn more about pediatric vaccinations (ages 5-11), we invite you to visit the [employer] [facility] webpage. [email or web address] To learn more about the COVID-19 vaccine, we invite you to visit the CDC website for a list of frequently asked questions. https://www.cdc.gov/coronavirus/ 2019-ncov/vaccines/faq.html [employer] Patient Portal Access Instructions: Stay connected with your healthcare team and access your personal medical information anytime with the [employer] Patient Portal. If you would like a full copy of your medical records please contact the [facility] Medical Records Department Monday through Monday between 8a.m. and 4:30p.m. Please follow the directions below to access the portal: 1.Access the email account you provided upon registration to the hospital.2.Look for an invitation email from [facility].3.Open the email and access the invitation link: Accept Invitation to [employer].Fill in the required jordan to create your account. Sign into [email or web address].[email or web address] with your username and password that you created in the above steps to stay up to date. You can then view a summary of results, a summary of your visits, and the ability to download your summaries to your computer or send the information securely to a physician. Remember that your healthcare information is confidential, so carefully consider who you will allow to register on the [employer] Patient Portal for access to your information. You can also access the [employer] Patient Portal on the [employer] stephen. Simply click on Health Records under Health Data and then click on the [employer] logo. HOW TO SAFELY DISPOSE OF PRESCRIPTION MEDICATIONS Please use one of the following methods to safely dispose of your unused medications. 1.Use a drug disposal kit: the drug disposal pouch allows you to safely discard your old and unused drugs. Ask your nurse to give you one when you are discharged.2.Visit a local take-back location: Many local pharmacies and police departments have programs that collect old and unwanted prescription drugs. Call your local pharmacy or go to http://Movaris.DNA13/9E4Lz7o to find one close to you.3.Make use of household items: Use cat litter or old coffee grounds to dispose medications if other options are not available. Mix your drugs with these household products, seal them in an airtight container and throw it into the garbage. Call [facility]: [phone] to be sure your drugs can be disposed of in this way. Some medicines may require a different approach.4.Never flush your medications down the toilet. IF YOU HAVE BEEN PRESCRIBED AN OPIOIDS FOR PAIN If you have been prescribed an opioid (such as hydrocodone, oxycodone or morphine), it is critical to understand the possible side effects and risks of opioid pain medications. Even when taken as directed, opioids can have several side effects including: Tolerance, meaning you might need to take more of a medication for the same pain relief. Nausea, vomiting and/or constipation. Sleepiness, dizziness, dry mouth, confusion, depression or itching. Physical dependence, meaning you have withdrawal symptoms when a medication is stopped ? this can develop within a few days. KNOW YOUR RESPONSIBILITIES It is important to know exactly how much and how often to take the opioid pain medications you are prescribed. Never take opioids in higher amounts or more often than prescribed. Do not combine opioids with alcohol or other drugs that cause drowsiness, such as benzodiazepines, also known as benzos, including diazepam and alprazolam, muscle relaxants or sleep aids. Never sell or share prescription opioids. This is illegal. Store opioids in a secure place and out of reach of others (including children, family, friends and visitors). The last page(s) of this document has been signed and retained as a CHART COPY Signatures Patient Education Materials Complementary Care for Pain Medication Leaflets My discharge plan and instructions have been reviewed and explained to me and I,CHARLIE ESTES understand my current condition and have read and understand these discharge instructions. I have received a written copy of the plan/instructions. If I have questions, I am aware that I should contact my doctor. Patient/Forging Machine Operator Signature: Date/Time: Relationship to Patient: Witness Name/Signature: Date/Time: [facility] 10-19-2023 Note ORIGINAL EXAMINATION: CT OF THE ABDOMEN AND PELVIS WITHOUT CONTRAST 10/19/2023 11:56 pm TECHNIQUE: CT of the abdomen and pelvis was performed without the administration of intravenous contrast. Multiplanar reformatted images are provided for review. Automated exposure control, iterative reconstruction, and/or weight based adjustment of the mA/kV was utilized to reduce the radiation dose to as low as reasonably achievable. COMPARISON: Chest radiograph 07/06/2017 HISTORY: ORDERING SYSTEM PROVIDED HISTORY: Reason for Exam: Left sided pain for a couple of weeks. pain FINDINGS: Evaluation for mass and inflammatory process is limited by absence of intravenous contrast. Lower Chest: Visualized lower thorax demonstrates no consolidation or pleural effusion. Organs: The liver demonstrates no biliary duct dilatation or gross mass. The gallbladder is decompressed without gross gallstones. The pancreas demonstrates no evidence of mass, ductal dilatation, or inflammatory process. Spleen is normal in size. Adrenal glands are normal in size. There is inferior right renal 7 mm calculus without hydronephrosis. Left kidney demonstrates no hydronephrosis or obstructive calculi. There is superior left renal hypodense cortical 1.6 x 1.2 cm cyst. Ureters are normal in caliber bilaterally. GI/Bowel: Stomach and duodenal sweep demonstrate no acute abnormality. Small bowel and colon are normal in caliber. The appendix is not discretely visualized. There is no gross pericecal mass or inflammatory process. Pelvis: Urinary bladder is within normal limits. Prostate gland is mildly enlarged measuring 3.7 cm AP x 5.1 cm TR. Seminal vesicles are grossly normal in morphology. Peritoneum/Retroperitoneum: Aorta is normal in caliber without acute abnormality. There are a few calcified plaques of the aorta. Bones/Soft Tissues: Osseous structures are intact. IMPRESSION: 1. There is no evidence of obstructive uropathy. Kidneys demonstrate no hydronephrosis or renal calculi. There is inferior right renal 7 mm calculus without hydronephrosis. There is superior left renal hypodense cortical 1.6 x 1.2 cm cyst. 2. There is no bowel obstruction or adynamic ileus. The appendix is not discretely visualized. There is no gross pericecal mass or inflammatory process. Interpreted by: David Valenzuela Preliminary Report By: David Valenzuela Electronically signed By David Valenzuela Dictated Date: 10/19/2023 11:59:57 PM Prelim Date: 10/20/2023 12:09:46 AM Sign Date: 10/20/2023 12:09:46 AM Ordering Provider: CHIARA SINGH [facility] Evaluation + Plan note No data available for this section [facility] Hospital Discharge instructions No data available for this section [facility] Progress note No data available for this section [facility] Summary note INGRID Hurtado: PERFORM Event Display: Patient Summary Documents Authored Date: [id number] [facility] Summary Purpose Family History No Family History Records Found No data available for this section No Family History Records Found No data available for this section No Family History Records Found No data available for this section No Family History Records FoundNo Family History Records FoundNo Family History Records FoundNo Family History Records Found Advance Directives No Advanced Directives Records FoundNo Advanced Directives Records FoundNo Advanced Directives Records FoundNo Advanced Directives Records FoundNo Advanced Directives Records FoundNo Advanced Directives Records FoundNo Advanced Directives Records Found Additional Source Comments (unrecognized sect ion and content) No Status Records FoundNo Status Records FoundNo Status Records FoundNo Status Records FoundNo Status Records FoundNo Status Records FoundNo Status Records Found INFORMATION SOURCE (unrecogn ized section and content) DATE CREATED AUTHOR 02/14/2019 [facility] DATE CREATED AUTHOR AUTHOR'S ORGANIZ ATION 10/26/2023 [facility] ([place]) DATE CREATED AUTHOR AUTHOR'S ORGANIZ ATION 04/19/2024 [facility] DATE CREATED AUTHOR AUTHOR'S ORGANIZ ATION 05/10/2024 [facility] DATE CREATED AUTHOR AUTHOR'S ORGANIZ ATION 05/11/2024 [facility] DATE CREATED AUTHOR AUTHOR'S ORGANIZ ATION 07/24/2024 [facility] DATE CREATED AUTHOR AUTHOR'S ORGANIZ ATION 08/01/2024 [facility] Patient Care team informatio n (unrecognized section and content) Care Team Personnel Name: JOSSELIN REIS INDUSTRIAL MACHINE ASSEMBLER-TARIFF CLERK Member Role: Primary Care Physician Address: Address: [address] [place] [address] [address] [place] [address]- Care Team Related Persons Name: PRISCILA ESTES Address: Home [address] Care Team Personnel Name: JOSSELIN REIS INDUSTRIAL MACHINE ASSEMBLER-TARIFF CLERK Member Role: Primary Care Physician Address: Address: [address] [place] [address] [address] [place] [address]- Care Team Related Persons Name: PRISCILA ESTES Address: Home [address] [address] [place] Care Team Personnel Name: JOSSELIN REIS INDUSTRIAL MACHINE ASSEMBLER-TARIFF CLERK Member Role: Primary Care Physician Address: Address: [address] [place] [address] [address] [place] [address]- Care Team Related Persons Name: PRISCILA ESTES Address: Home [address] [id number] FOR RECORDS PERTAINING TO PATIENTS WHO ARE OR HAVE BEEN ENROLLED IN A CHEMICAL DEPENDENCY/SUBSTANCEABUSE PROGRAM, SOME INFORMATION MAY BE OMITTED. This clinical summary was aggregated from multiple sources. Caution should be exercised in using it in the provision of clinical care. This summary normalizes information from multiple sources, and as a consequence, information in this document may materially change the coding, format and clinical context of patient data. In addition, data may be omitted in some cases. CLINICAL DECISIONS SHOULD BE BASED ON THE PRIMARY CLINICAL RECORDS. [facility] provides no warranty or guarantee of the accuracy or completeness of information in this document.
[2024-10-22 12:08] LABS: PROEL- A/G Ratio 0.9 (0.7-1.7); PROEL- Albumin 3.3 g/dL (2.9-4.4); PROEL- Alpha-1 Globulin 0.3 g/dL (0.0-0.4); PROEL- Alpha-2 Globulin 0.8 g/dL (0.4-1.0); PROEL- Gamma Globulin 1.4 g/dL (0.4-1.8); PROEL- Globulin, Total 3.6 g/dL (2.2-3.9); PROEL- TOTAL PROTEIN 6.9 g/dL (6.0-8.5); PROEL-M-Spike 0.3 g/dL (Not Observed); QNTFERON TB Mitogen Value 1.41 IU/mL (.); QNTFERON TB Nil Value 0.05 IU/mL (.); QNTFERON TB1+ Ag Value 0.05 IU/mL (.); QNTFERON TB2+ Ag Value 0.04 IU/mL (.); QNTIFERON TB Positive Criteria Negative (Negative)
== END | disposition home or self-care (01) ==
LOC: MTLAB 09:48
PROVIDERS: PCP Nurse Practitioner Family; Referring Provider Internal Medicine Rheumatology; Visit Provider Internal Medicine Rheumatology
DX: M05.70 Rheumatoid arthritis with rheumatoid factor of unspecified site without organ or systems involvement (principal); Z79.899 Other long term (current) drug therapy; M19.041 Primary osteoarthritis, right hand; Z86.19 Personal history of other infectious and parasitic diseases
CPT/HCPCS: 36415; 80053; 82784; 84165; 85025; 86334; 86480